=== PATIENT | male | born 1960 | race Caucasian/White ===

== ENCOUNTER 2020-08-31 16:50 | Inpatient (IN) | payer BC, OTHER ==
[2020-08-31] VITALS (8 sets, daily range): BP systolic 144–199; BP diastolic 67–97
[~2020-08-31] VITALS: Ht 180.3 cm; Wt 140.0 kg
[2020-08-31] MEDS ORDERED: ROPI5TAB4 PO (17:11)
[2020-08-31] MEDS ORDERED: PRED20TA PO (17:12)
[2020-08-31] MEDS ORDERED: CAPS42.514 TP (17:21)
[2020-08-31] MEDS ORDERED: OMEP20TA8 PO (17:21)
[2020-08-31] MEDS ORDERED: CRESTOR40 MG PO (17:21)
[2020-08-31] MEDS ORDERED: INDO50CA15 PO (17:21)
[2020-08-31] MEDS ORDERED: FURO-69 PO (17:21)
[2020-08-31] MEDS ORDERED: ALBUTEROL 90 MCG INH (17:21)
[2020-08-31] MEDS ORDERED: LOSA100T14 PO (17:21)
[2020-08-31] MEDS ORDERED: CARB15DR3 EACHEYE (17:21)
[2020-08-31] MEDS ORDERED: MONT10TA49 PO (17:21)
[2020-08-31] MEDS ORDERED: GABA600T7 PO (17:21)
[2020-08-31] MEDS ORDERED: METH-38 PO (17:21)
[2020-08-31] MEDS ORDERED: METF850T8 PO (17:21)
[2020-08-31] MEDS ORDERED: [UNRECOGNIZED DRUG - OTHER] PO (17:22)
[2020-08-31] MEDS ORDERED: DOCUSATE SODIUM 100 MG CAPSULE. PO PRN (18:15)
[2020-08-31] MEDS ORDERED: DEXTROSE 50% 25 GM / 50ML DISP.SYRIN. IV PRN (18:15)
[2020-08-31] MEDS ORDERED: ONDANSETRON PF 4 MG/2 ML VIAL. IVP PRN (18:15)
[2020-08-31] MEDS ORDERED: SENNOSIDES 8.6 MG TABLET PO PRN (18:15)
--- NOTE | 2020-08-31 18:18 | PDOC1 ---
History and Physical Date of Service: DOS: DATE: 08/31/20 TIME: 18:18 Chief Complaint: Chief Complain: COVID pneumonia History of Present Illness: HPI: History obtained from patient and transferring physician Dr. Ramos from the [place] Patient is a 60-year-old male with past medical history of insulin dependent diabetes mellitus, morbid obesity, MARGARITO who was transferred due to acute respiratory failure due to COVID-19 infection. Patient was tested positive for Covid on 08/25/2020 patient was treated with IV remdesivir and Decadron he did finish 5 days of IV antibiotics and has still continued to be fever with a T-max of 101 F. He was tested for procalcitonin and it was been negative x2. Patient was initially placed on nasal cannula at and transition to Vapotherm and he needed to go up on his requirements to 40 L and he has been on BiPAP now 100% FiO2 for the past 2 days. Patient's D-dimer was also elevated and a chest CTA was ordered which was negative, this was done on Sunday. The reason for the transfer is to have a pulmonology specialist to oversee their care. [place] physician has attempted to transfer to [facility] but the beds are full at this time. Currently the patient denies any respiratory distress he is currently saturating 100% on FiO2 of 100% BiPAP in the ICU. Currently denies fevers, chest pain, abdominal pain, diarrhea, dysuria, or hemoptysis. Past Medical/Surgical History: PMH/PSH: DM insulin dependent, CAD, HTN MARGARITO- compliant with CPAP Morbid Obesity Hx of LBBB Allergies: Allergies: Coded Allergies: flunisolide (Verified Adverse Reaction, Mild, insufficient response, 08/31/20) lisinopril (Verified Adverse Reaction, Mild, cough, 08/31/20) Family History: Family History: Reviewed with no relevant findings Social History: Social History: Denies alcohol, tobacco, drug abuse Current Medications: Current Medications Active Scripts Active Reported [cholecalcif] 25 Mcg PO DAILY Capsaicin 42.5 Gm Cream..g. 1 Chris TP QID [albuterol 90MCG] 2 Puff INH QID Robaxin-750 (Methocarbamol) 750 Mg Tablet 1 Tab PO BID 30 Days Indomethacin 50 Mg Capsule 1 Cap PO BID 10 Days with food Omeprazole 20 Mg Tablet.dr 20 Mg PO DAILY Gabapentin 600 Mg Tablet 600 Mg PO BID Crestor (Rosuvastatin Calcium) 40 Mg Tablet 20 Mg PO HS Singulair Tablet (Montelukast Sodium) 10 Mg Tablet 10 Mg PO HS Metformin Hcl 850 Mg Tablet 850 Mg PO BIDWMEALS Losartan Potassium 100 Mg Tablet 100 Mg PO DAILY Lasix (Furosemide) 20 Mg Tablet 20 Mg PO DAILY Refresh Optive Eye Drops (Carboxymethylcellulos/Glycerin) 15 Ml Drops 1 Drop EACHEYE BID PRN Prednisone 20 Mg Tablet 10 Mg PO DAILY Ropinirole Hcl 5 Mg Tablet 5 Mg PO QHS ROS: Review of Systems Review of System REVIEW OF SYSTEMS: GENERAL: Denies weakness SKIN: No bruising, hair changes or rashes. EYES: No blurred, double or loss of vision. NOSE AND THROAT: No history of nosebleeds, hoarseness or sore throat. HEART: No history of palpitations, chest pain or shortness of breath on exertion. LUNGS: Denies cough, hemoptysis, wheezing or shortness of breath. GASTROINTESTINAL: Denies changes in appetite, nausea, vomiting, diarrhea or constipation. GENITOURINARY: No history of frequency, urgency, hesitancy or nocturia. NEUROLOGIC: Denies history of numbness, tingling, or tremor. PSYCHIATRIC: No history of panic, anxiety or depression. ENDOCRINE: No history of heat or cold intolerance, polyuria or polydipsia. EXTREMITIES: Denies joint pain, pain on walking or stiffness. Physical Exam: Vital Signs: Vital Signs Date Time Temp Pulse Resp B/P (MAP) Pulse Ox O2 Delivery O2 Flow Rate FiO2 08/31/20 17:15 94 26 144/74 (97) 96 BiPAP/CPAP 08/31/20 17:00 100.1 100.1 Physcial Exam: GEN: No apparent distress. Alert and oriented HEENT: Normal cephalic, atraumatic, external auditory canals are patent EYES: Extraocular muscles are intact, pupil are equally round and reactive to light and accommodation MUSCULOSKELETAL: Well developed , well nourished, good range of motion ENDOCRINE: No thyromegaly was palpated LYMPHATICS: No cervical chain or axillary nodes were noted HEMATOPOIETIC: No bruising NECK: Supple, no JVD, no thyromegaly was noted LUNGS: Clear to auscultation in all lung snyder without rhonchi or wheezing HEART: RRR, S!, S2 present. Peripheral pulses intact, no obvious murmurs noted ABDOMEN: Soft, nontender. Positive bowel sounds, no organomegaly, normal bowel sounds EXTREMITIES: Without clubbing, cyanosis, or edema. Pedal pulses intact. Negative Homans sign NEUROLOGIC: Normal speech and tone. A&O x 3, moves all extremities, no obvious focal deficits PSYCHIATRIC: Normal affect, normal mood. Stable SKIN: No ulcerations or rashes, good skin turgor, no jaundice VASCULAR: Good capillary refill, neurovascular bundle appears to be intact Labs: Labs: Labs reviewed in paper chart Images: Images Negative CT of the chest done Sunday at the [place] Pending chest x-ray Assessment/Plan Assessment/Plan Acute hypoxic respiratory failure due to COVID-19 infection requiring BiPAP support Diabetes mellitus Morbid obesity MARGARITO on CPAP Admit to ICU for close respiratory monitoring Pulmonology consult Continue IV dexamethasone 6 mg daily Lovenox twice daily for DVT prophylaxis Protonix while on steroids GI prophylaxis ADA diet Full code Discussed with RN and SW Disposition inpatient management as above Surrogate decision maker is the A total of 65 minutes of critical care time was spent in reviewing chart, labs, and images. Discussed with RN and SW. Justifications for Admission Other Justification Acute respiratory failure due to COVID RIGOBERTO ZALDIVAR MD Aug 31, 2020 18:18
--- NOTE | 2020-08-31 18:36 | NUR ---
Patient arrived to room by EMS on BIPAP. Patient oxygen saturation is upper 90's on 100% BIPAP and breathing well. Patient says he is feeling good and pain free. I had a lengthy conversation with the patient regarding the plan of care and his status. He had concerns at [facility] that his needs were not being met so he asked to be transferred. Patients questions and concerns were discussed and he is feeling better about his situation. I spoke to the and she had many questions. We discussed in length the plan of care and his status and she also felt like her questions were answered and did not have any further questions at this time.
[2020-08-31] MEDS ORDERED: POLYVINYL ALCOHOL 1.4% OPHTH SOLUTION 15ML BOTTLE. OU PRN (19:45)
[2020-08-31] MEDS: ENOXAPARIN 40 MG/0.4 ML SYRINGE. SQ SCH (20:05)
[2020-08-31] MEDS: GABAPENTIN 300 MG CAPSULE. PO SCH (20:05)
[2020-08-31] MEDS: ASCORBIC ACID 1,000 MG TABLET PO SCH (20:06)
[2020-08-31] MEDS: ATORVASTATIN CALCIUM 40 MG TABLET. PO SCH (20:07)
[2020-08-31] MEDS ORDERED: rOPINIRole 1 MG TABLET. PO SCH (21:00)
[2020-08-31] MEDS ORDERED: ENOXAPARIN 40 MG/0.4 ML SYRINGE. SQ SCH (21:00)
[2020-08-31] MEDS ORDERED: MONTELUKAST SODIUM 10 MG TABLET. PO SCH (21:00)
[2020-08-31] MEDS: METHOCARBAMOL 750 MG TABLET PO SCH (21:01)
[2020-08-31] MEDS: INDOMETHACIN 25 MG CAPSULE. PO SCH (21:02)
[2020-08-31] MEDS: CAPSAICIN 0.025% TOPICAL CREAM 60GM TUBE. TP SCH (21:02)
[2020-08-31] MEDS: LABETALOL 20 MG/4 ML DISP.SYRIN. IVP PRN (21:55)
[2020-08-31] MEDS: THIAMINE INJ 100 MG in IV DEXTROSE 5% 50 ML IV SCH (21:57)
[2020-09-01] VITALS (28 sets, daily range): BP systolic 80–196; BP diastolic 40–130
--- NOTE | 2020-09-01 04:21 | RAD ---
XR CHEST 1V 09/01/2020 4:11 AM INDICATION: Covid positive COMPARISON: None available TECHNIQUE: Portable frontal view of the chest is provided. FINDINGS: The cardiomediastinal silhouette is within normal limits. Small left pleural effusion with adjacent c ompressive atelectasis versus infiltrate. Mild interstitial prominence may represent interstitial edema versus interstitial pneumonitis. No pne umothorax. No suspicious osseous abnormality. IMPRESSION: Small left pleural effusion with adjacent compressive atelectasis versus infiltrate. Mild interstitial prominence as may be seen with interstitial pneumonitis versus interstitial edema. Electronically signed by: Rossi Hermosillo MD (09/01/2020 4:18 AM) KARLY
[2020-09-01] MEDS: THIAMINE INJ 100 MG in IV DEXTROSE 5% 50 ML IV SCH ×3 (05:39→23:21)
[2020-09-01] MEDS ORDERED: BENZONATATE 100 MG CAPSULE. PO PRN (06:30)
[2020-09-01] MEDS ORDERED: LORazepam 0.5 MG TABLET PO PRN (06:30)
[2020-09-01] MEDS: MORPHINE SULFATE 2 MG/ML VIAL. IV PRN ×2 (06:34→10:05)
[2020-09-01 07:28] LABS: BASO # 0.1 x10^3/uL (0.0-0.2); BASO % 1 % (0-3); EOS # 0.1 x10^3/uL (0.0-0.7); EOS % 1 % (0-3); HEMATOCRIT 41.1 % (39.0-53.0); HEMOGLOBIN 13.2 g/dL (13.0-17.5); LYMPH # 0.7 x10^3/uL (1.0-4.8); LYMPH % 5 % (24-48); MEAN CORPUSCULAR HEMOGLOBIN 25 pg (25-35); MEAN CORPUSCULAR HGB CONC 32 g/dL (31-37); MEAN CORPUSCULAR VOLUME 77 fL (79-100); MONO # 0.2 x10^3/uL (0.0-1.1); MONO % 1 % (0-9); NEUT # 11.6 x10^3/uL (1.8-7.7); NEUT % 92 % (31-73); PLATELET COUNT 260 x10^3/uL (140-400); RED BLOOD COUNT 5.33 x10^6/uL (4.30-5.70); RED CELL DISTRIBUTION WIDTH 15.2 % (11.5-14.5); WHITE BLOOD COUNT 12.7 x10^3/uL (4.0-11.0)
[2020-09-01 07:47] LABS: MAGNESIUM 2.8 mg/dL (1.8-2.4); PHOSPHORUS 3.5 mg/dL (2.6-4.7)
[2020-09-01 07:48] LABS: ALBUMIN 2.3 g/dL (3.4-5.0); ALBUMIN/GLOBULIN RATIO 0.5 (1.0-1.7); CREATININE 1.2 mg/dL (0.7-1.3); GFR 62.2; POTASSIUM 4.3 mmol/L (3.5-5.1); TOTAL PROTEIN 6.7 g/dL (6.4-8.2)
[2020-09-01] MEDS: INDOMETHACIN 25 MG CAPSULE. PO SCH ×2 (08:00→17:00)
[2020-09-01] MEDS: metFORMIN 850 MG TABLET PO SCH ×2 (08:00→17:00)
[2020-09-01] MEDS: INSULIN LISPRO 300 UNITS/3 ML VIAL. SQ SCH ×5 (08:00→23:59)
[2020-09-01] MEDS: ENOXAPARIN 40 MG/0.4 ML SYRINGE. SQ SCH ×2 (08:17→21:25)
[2020-09-01] MEDS: PANTOPRAZOLE IV PUSH 40 MG VIAL. IVP SCH (08:17)
[2020-09-01] MEDS: LABETALOL 20 MG/4 ML DISP.SYRIN. IVP PRN (08:23)
[2020-09-01] MEDS: DEXAMETHASONE SOD PHOS 4 MG/ML VIAL IVP SCH (08:32)
[2020-09-01 08:41] LABS: BASE EXCESS ABG 5 mmol/L (-3-3); HCO3 ABG 28 mmol/L (21-28); PCO2 ABG 36 mmHg (35-46); PO2 ABG 59 mmHg (75-108); SAT O2 ABG 91 % (92-99)
[2020-09-01 08:50] LABS: CORRECTED PCO2 ABG 41 mmHg; CORRECTED PH ABG 7.46; CORRECTED PO2 ABG 72 mmHg
[2020-09-01 08:52] LABS: FIO2 ABG 100/BIPAP
[2020-09-01] MEDS ORDERED: LOSARTAN POTASSIUM 50 MG TABLET. PO SCH (09:00)
[2020-09-01] MEDS: ASCORBIC ACID 1,000 MG TABLET PO SCH ×3 (09:00→21:25)
[2020-09-01] MEDS ORDERED: FUROSEMIDE 20 MG TABLET PO SCH (09:00)
[2020-09-01] MEDS ORDERED: NON FORMULARY ITEM (Omeprazole 20 MG) PO SCH (09:00)
[2020-09-01] MEDS: CAPSAICIN 0.025% TOPICAL CREAM 60GM TUBE. TP SCH ×3 (09:00→17:00)
[2020-09-01] MEDS: CHOLECALCIFEROL (VITAMIN D3) 1,000 UNIT TABLET PO SCH (09:00)
[2020-09-01] MEDS: METHOCARBAMOL 750 MG TABLET PO SCH (09:00)
[2020-09-01] MEDS: INSULIN GLARGINE SYRINGE. SQ SCH (09:00)
[2020-09-01] MEDS: GABAPENTIN 300 MG CAPSULE. PO SCH ×2 (09:00→21:25)
--- NOTE | 2020-09-01 09:00 | PDOC ---
PROGRESS NOTES Date of Service: DATE: 09/01/20 TIME: 09:00 Chief Complaint Chief Complaint Images: Images Negative CT of the chest done Sunday at the [place] Pending chest x-ray Assessment/Plan Assessment/Plan Acute hypoxic respiratory failure due to COVID-19 infection requiring BiPAP support Diabetes mellitus Morbid obesity MARGARITO on CPAP, now intubated 09-01 Admit to ICU for close respiratory monitoring Pulmonology consult Continue IV dexamethasone 6 mg daily Lovenox twice daily for DVT prophylaxis Protonix while on steroids GI prophylaxis ADA diet Full code Discussed with RN and SW Disposition inpatient management as above Surrogate decision maker is the 35 minutes of critical care time Justifications for Admission Justifications for Admission Other Justification Acute respiratory failure due to COVID History of Present Illness History of Present Illness Chief Complaint: Chief Complain: COVID pneumonia History of Present Illness: HPI: History obtained from patient and transferring physician Dr. Ramos from the [place] Patient is a 60-year-old male with past medical history of insulin dependent diabetes mellitus, morbid obesity, MARGARITO who was transferred due to acute respiratory failure due to COVID-19 infection. Patient was tested positive for Covid on 08/25/2020 patient was treated with IV remdesivir and Decadron he did finish 5 days of IV antibiotics and has still continued to be fever with a T-max of 101 F. He was tested for procalcitonin and it was been negative x2. Patient was initially placed on nasal cannula at and transition to Vapotherm and he needed to go up on his requirements to 40 L and he has been on BiPAP now 100% FiO2 for the past 2 days. Patient's D-dimer was also elevated and a chest CTA was ordered which was negative, this was done on Sunday. The reason for the transfer is to have a pulmonology specialist to oversee their care. [place] physician has attempted to transfer to [facility] but the beds are full at this time. Currently the patient denies any respiratory distress he is currently saturating 100% on FiO2 of 100% BiPAP in the ICU. Currently denies fevers, chest pain, abdominal pain, diarrhea, dysuria, or hemoptysis. Past Medical/Surgical History: PMH/PSH: DM insulin dependent, CAD, HTN MARGARITO- compliant with CPAP Morbid Obesity Hx of LBBB Allergies: Allergies: Coded Allergies: flunisolide (Verified Adverse Reaction, Mild, insufficient response, 08/31/20) lisinopril (Verified Adverse Reaction, Mild, cough, 08/31/20) Family History: Family History: Reviewed with no relevant findings Social History: Social History: Denies alcohol, tobacco, drug abuse Current Medications: Current Medications Vitals Vitals Vital Signs Date Time Temp Pulse Resp B/P (MAP) Pulse Ox O2 Delivery O2 Flow Rate FiO2 09/01/20 08:23 94 198/78 09/01/20 08:08 82 09/01/20 06:34 BiPAP/CPAP 09/01/20 06:00 29 09/01/20 04:00 98.2 98.2 Physical Exam Physical Exam Physcial Exam: GEN: No apparent distress. sedated on vent HEENT: Normal cephalic, atraumatic, external auditory canals are patent EYES: Extraocular muscles are intact, pupil are equally round and reactive to light and accommodation MUSCULOSKELETAL: Well developed , well nourished, good range of motion ENDOCRINE: No thyromegaly was palpated LYMPHATICS: No cervical chain or axillary nodes were noted HEMATOPOIETIC: No bruising NECK: Supple, no JVD, no thyromegaly was noted LUNGS: Clear to auscultation in all lung snyder without rhonchi or wheezing HEART: RRR, S!, S2 present. Peripheral pulses intact, no obvious murmurs noted ABDOMEN: Soft, nontender. Positive bowel sounds, no organomegaly, normal bowel sounds EXTREMITIES: Without clubbing, cyanosis, or edema. Pedal pulses intact. Negative Homans sign NEUROLOGIC: no obvious focal deficits SKIN: No ulcerations or rashes, good skin turgor, no jaundice VASCULAR: Good capillary refill, neurovascular bundle appears to be intact General: Cooperative Extremities: No cyanosis Labs LABS EXAM: CHEST 1 VIEW History : Central line insertion. COMPARISON: 09/01/2020 TECHNIQUE: Single portable radiograph of the chest FINDINGS: The ET tube is identified in the trachea at the level of the clavicles. The feeding tube is identified in the stomach. Interval placement of right-sided internal jugular line with the tip projecting in the SVC. Mild prominent bilateral interstitial and airspace opacities that exam. No pneumothorax. IMPRESSION: 1. Interval placement of right-sided internal jugular line with the tip projecting in the SVC. No pneumothorax. 2. Mild prominent bilateral interstitial and airspace opacities likely edema or infiltrates. Electronically signed by: Jack Coughlin MD (09/01/2020 2:17 PM) [id number] DICTATED and SIGNED BY: JACK COUGHLIN MD DATE: 09/01/20 [id number] Laboratory Tests Test 09/01/20 01:38 09/01/20 07:09 09/01/20 07:29 09/01/20 08:00 Troponin I Quantitative 0.024 ng/mL (0.000-0.055) White Blood Count 12.7 x10^3/uL (4.0-11.0) Red Blood Count 5.33 x10^6/uL (4.30-5.70) Hemoglobin 13.2 g/dL (13.0-17.5) Hematocrit 41.1 % (39.0-53.0) Mean Corpuscular Volume 77 fL (79-100) Mean Corpuscular Hemoglobin 25 pg (25-35) Mean Corpuscular Hemoglobin Concent 32 g/dL (31-37) Red Cell Distribution Width 15.2 % (11.5-14.5) Platelet Count 260 x10^3/uL (140-400) Neutrophils (%) (Auto) 92 % (31-73) Lymphocytes (%) (Auto) 5 % (24-48) Monocytes (%) (Auto) 1 % (0-9) Eosinophils (%) (Auto) 1 % (0-3) Basophils (%) (Auto) 1 % (0-3) Neutrophils # (Auto) 11.6 x10^3/uL (1.8-7.7) Lymphocytes # (Auto) 0.7 x10^3/uL (1.0-4.8) Monocytes # (Auto) 0.2 x10^3/uL (0.0-1.1) Eosinophils # (Auto) 0.1 x10^3/uL (0.0-0.7) Basophils # (Auto) 0.1 x10^3/uL (0.0-0.2) Sodium Level 141 mmol/L (136-145) Potassium Level 4.3 mmol/L (3.5-5.1) Chloride Level 102 mmol/L (98-107) Carbon Dioxide Level 34 mmol/L (21-32) Anion Gap 5 (6-14) Blood Urea Nitrogen 23 mg/dL (8-26) Creatinine 1.2 mg/dL (0.7-1.3) Estimated GFR (Cockcroft-Gault) 62.2 BUN/Creatinine Ratio 19 (6-20) Glucose Level 193 mg/dL (70-99) Calcium Level 9.0 mg/dL (8.5-10.1) Phosphorus Level 3.5 mg/dL (2.6-4.7) Magnesium Level 2.8 mg/dL (1.8-2.4) Total Bilirubin 1.0 mg/dL (0.2-1.0) Aspartate Amino Transf (AST/SGOT) 53 U/L (15-37) Alanine Aminotransferase (ALT/SGPT) 39 U/L (16-63) Alkaline Phosphatase 273 U/L (46-116) Total Protein 6.7 g/dL (6.4-8.2) Albumin 2.3 g/dL (3.4-5.0) Albumin/Globulin Ratio 0.5 (1.0-1.7) Glucose (Fingerstick) 174 mg/dL (70-99) O2 Saturation 91 % (92-99) Arterial Blood pH 7.50 (7.35-7.45) Arterial Blood pH (Temp corrected) 7.46 Arterial Blood pCO2 at Patient Temp 36 mmHg (35-46) Arterial Blood pCO2 (Temp correct) 41 mmHg Arterial Blood pO2 at Patient Temp 59 mmHg (75-108) Arterial Blood pO2 (Temp corrected) 72 mmHg Arterial Blood HCO3 28 mmol/L (21-28) Arterial Blood Base Excess 5 mmol/L (-3-3) FiO2 100/bipap Comment Review of Relevant I have reviewed the following items lexa (where applicable) has been applied. Labs Laboratory Tests Test 09/01/20 01:38 09/01/20 07:09 09/01/20 07:29 09/01/20 08:00 Troponin I Quantitative 0.024 ng/mL (0.000-0.055) White Blood Count 12.7 x10^3/uL (4.0-11.0) Red Blood Count 5.33 x10^6/uL (4.30-5.70) Hemoglobin 13.2 g/dL (13.0-17.5) Hematocrit 41.1 % (39.0-53.0) Mean Corpuscular Volume 77 fL (79-100) Mean Corpuscular Hemoglobin 25 pg (25-35) Mean Corpuscular Hemoglobin Concent 32 g/dL (31-37) Red Cell Distribution Width 15.2 % (11.5-14.5) Platelet Count 260 x10^3/uL (140-400) Neutrophils (%) (Auto) 92 % (31-73) Lymphocytes (%) (Auto) 5 % (24-48) Monocytes (%) (Auto) 1 % (0-9) Eosinophils (%) (Auto) 1 % (0-3) Basophils (%) (Auto) 1 % (0-3) Neutrophils # (Auto) 11.6 x10^3/uL (1.8-7.7) Lymphocytes # (Auto) 0.7 x10^3/uL (1.0-4.8) Monocytes # (Auto) 0.2 x10^3/uL (0.0-1.1) Eosinophils # (Auto) 0.1 x10^3/uL (0.0-0.7) Basophils # (Auto) 0.1 x10^3/uL (0.0-0.2) Sodium Level 141 mmol/L (136-145) Potassium Level 4.3 mmol/L (3.5-5.1) Chloride Level 102 mmol/L (98-107) Carbon Dioxide Level 34 mmol/L (21-32) Anion Gap 5 (6-14) Blood Urea Nitrogen 23 mg/dL (8-26) Creatinine 1.2 mg/dL (0.7-1.3) Estimated GFR (Cockcroft-Gault) 62.2 BUN/Creatinine Ratio 19 (6-20) Glucose Level 193 mg/dL (70-99) Calcium Level 9.0 mg/dL (8.5-10.1) Phosphorus Level 3.5 mg/dL (2.6-4.7) Magnesium Level 2.8 mg/dL (1.8-2.4) Total Bilirubin 1.0 mg/dL (0.2-1.0) Aspartate Amino Transf (AST/SGOT) 53 U/L (15-37) Alanine Aminotransferase (ALT/SGPT) 39 U/L (16-63) Alkaline Phosphatase 273 U/L (46-116) Total Protein 6.7 g/dL (6.4-8.2) Albumin 2.3 g/dL (3.4-5.0) Albumin/Globulin Ratio 0.5 (1.0-1.7) Glucose (Fingerstick) 174 mg/dL (70-99) O2 Saturation 91 % (92-99) Arterial Blood pH 7.50 (7.35-7.45) Arterial Blood pH (Temp corrected) 7.46 Arterial Blood pCO2 at Patient Temp 36 mmHg (35-46) Arterial Blood pCO2 (Temp correct) 41 mmHg Arterial Blood pO2 at Patient Temp 59 mmHg (75-108) Arterial Blood pO2 (Temp corrected) 72 mmHg Arterial Blood HCO3 28 mmol/L (21-28) Arterial Blood Base Excess 5 mmol/L (-3-3) FiO2 100/bipap Laboratory Tests Test 09/01/20 01:38 09/01/20 07:09 09/01/20 07:29 09/01/20 08:00 Troponin I Quantitative 0.024 ng/mL (0.000-0.055) White Blood Count 12.7 x10^3/uL (4.0-11.0) Red Blood Count 5.33 x10^6/uL (4.30-5.70) Hemoglobin 13.2 g/dL (13.0-17.5) Hematocrit 41.1 % (39.0-53.0) Mean Corpuscular Volume 77 fL (79-100) Mean Corpuscular Hemoglobin 25 pg (25-35) Mean Corpuscular Hemoglobin Concent 32 g/dL (31-37) Red Cell Distribution Width 15.2 % (11.5-14.5) Platelet Count 260 x10^3/uL (140-400) Neutrophils (%) (Auto) 92 % (31-73) Lymphocytes (%) (Auto) 5 % (24-48) Monocytes (%) (Auto) 1 % (0-9) Eosinophils (%) (Auto) 1 % (0-3) Basophils (%) (Auto) 1 % (0-3) Neutrophils # (Auto) 11.6 x10^3/uL (1.8-7.7) Lymphocytes # (Auto) 0.7 x10^3/uL (1.0-4.8) Monocytes # (Auto) 0.2 x10^3/uL (0.0-1.1) Eosinophils # (Auto) 0.1 x10^3/uL (0.0-0.7) Basophils # (Auto) 0.1 x10^3/uL (0.0-0.2) Sodium Level 141 mmol/L (136-145) Potassium Level 4.3 mmol/L (3.5-5.1) Chloride Level 102 mmol/L (98-107) Carbon Dioxide Level 34 mmol/L (21-32) Anion Gap 5 (6-14) Blood Urea Nitrogen 23 mg/dL (8-26) Creatinine 1.2 mg/dL (0.7-1.3) Estimated GFR (Cockcroft-Gault) 62.2 BUN/Creatinine Ratio 19 (6-20) Glucose Level 193 mg/dL (70-99) Calcium Level 9.0 mg/dL (8.5-10.1) Phosphorus Level 3.5 mg/dL (2.6-4.7) Magnesium Level 2.8 mg/dL (1.8-2.4) Total Bilirubin 1.0 mg/dL (0.2-1.0) Aspartate Amino Transf (AST/SGOT) 53 U/L (15-37) Alanine Aminotransferase (ALT/SGPT) 39 U/L (16-63) Alkaline Phosphatase 273 U/L (46-116) Total Protein 6.7 g/dL (6.4-8.2) Albumin 2.3 g/dL (3.4-5.0) Albumin/Globulin Ratio 0.5 (1.0-1.7) Glucose (Fingerstick) 174 mg/dL (70-99) O2 Saturation 91 % (92-99) Arterial Blood pH 7.50 (7.35-7.45) Arterial Blood pH (Temp corrected) 7.46 Arterial Blood pCO2 at Patient Temp 36 mmHg (35-46) Arterial Blood pCO2 (Temp correct) 41 mmHg Arterial Blood pO2 at Patient Temp 59 mmHg (75-108) Arterial Blood pO2 (Temp corrected) 72 mmHg Arterial Blood HCO3 28 mmol/L (21-28) Arterial Blood Base Excess 5 mmol/L (-3-3) FiO2 100/bipap Medications Current Medications Sennosides (Senna) 17.2 mg PRN BID PRN PO CONSTIPATION; Start 08/31/20 at 18:15 Docusate Sodium (Colace) 100 mg PRN DAILY PRN PO HARD STOOLS; Start 08/31/20 at 18:15 Ondansetron HCl (Zofran) 4 mg PRN Q6HRS PRN IVP NAUSEA/VOMITING; Start 08/31/20 at 18:15 Insulin Human Lispro (HumaLOG) 0-9 UNITS TIDWMEALS SQ ; Start 09/01/20 at 08:00 Dextrose (Dextrose 50%-Water Syringe) 12.5 gm PRN Q15MIN PRN IV SEE COMMENTS; Start 08/31/20 at 18:15 Enoxaparin Sodium (Lovenox 40mg Syringe) 40 mg Q24H SQ ; Start 08/31/20 at 21:00; Stop 08/31/20 at 18:36; Status DC Pantoprazole Sodium (PROTONIX VIAL for IV PUSH) 40 mg DAILYAC IVP Last administered on 09/01/20at 08:17; Start 09/01/20 at 07:30 Enoxaparin Sodium (Lovenox 40mg Syringe) 40 mg BID SQ Last administered on 09/01/20at 08:17; Start 08/31/20 at 21:00 Dexamethasone Sodium Phosphate (Decadron) 6 mg DAILY IVP Last administered on 09/01/20at 08:32; Start 09/01/20 at 09:00 Ascorbic Acid (Vitamin C) 3,000 mg TID PO Last administered on 08/31/20at 20:06; Start 08/31/20 at 21:00 Thiamine HCl 100 mg/Dextrose 51 ml @ 102 mls/hr Q8HRS IV Last administered on 09/01/20at 05:39; Start 08/31/20 at 22:00 Insulin Glargine (Lantus Syringe) 40 unit DAILY SQ ; Start 09/01/20 at 09:00 Furosemide (Lasix) 20 mg DAILY PO ; Start 09/01/20 at 09:00 Metformin HCl (Glucophage) 850 mg BIDWMEALS PO ; Start 09/01/20 at 08:00 Methocarbamol (Robaxin) 750 mg BID PO Last administered on 08/31/20at 21:01; Start 08/31/20 at 21:00 Montelukast Sodium (Singulair) 10 mg HS PO Last administered on 08/31/20at 20:05; Start 08/31/20 at 21:00 Capsaicin (Zostrix) 1 chris QID TP Last administered on 08/31/20at 21:02; Start 08/31/20 at 21:00 Glycerin/ Hypromellose/ Polyethylene (Artificial Tears) 1 drop PRN BID PRN OU DRY EYE; Start 08/31/20 at 19:45 Gabapentin (Neurontin) 600 mg BID PO Last administered on 08/31/20at 20:05; Start 08/31/20 at 21:00 Indomethacin (Indocin) 50 mg BIDWMEALS PO Last administered on 08/31/20at 21:0 2; Start 08/31/20 at 21:00 Losartan Potassium (Cozaar) 100 mg DAILY PO ; Start 09/01/20 at 09:00 Non-Formulary Medication (Omeprazole ) 20 mg DAILY PO ; Start 09/01/20 at 09:00; Status UNV Ropinirole HCl (Requip) 5 mg QHS PO Last administered on 08/31/20at 20:06; Start 08/31/20 at 21:00 Atorvastatin Calcium (Lipitor) 80 mg QHS PO Last administered on 08/31/20at 20:07; Start 08/31/20 at 21:00 Vitamin D (Vitamin D3) 1,000 unit DAILY PO ; Start 09/01/20 at 09:00 Labetalol HCl (Normodyne Iv Push) 10 mg TID PRN PRN IVP HYPERTENSION Last administered on 09/01/20at 08:23; Start 08/31/20 at 21:45 Lorazepam (Ativan) 0.25 mg PRN Q6HRS PRN PO ANXIETY / AGITATION; Start 09/01/20 at 06:30 Benzonatate (Tessalon Perle) 100 mg PRN Q8HRS PRN PO COUGH Last administered on 09/01/20at 06:34; Start 09/01/20 at 06:30 Morphine Sulfate (Morphine Sulfate) 2 mg PRN Q2HR PRN IV PAIN Last administered on 09/01/20at 06:34; Start 09/01/20 at 06:30 Active Scripts Active Reported [cholecalcif] 25 Mcg PO DAILY Capsaicin 42.5 Gm Cream..g. 1 Chris TP QID [albuterol 90MCG] 2 Puff INH QID Robaxin-750 (Methocarbamol) 750 Mg Tablet 1 Tab PO BID 30 Days Indomethacin 50 Mg Capsule 1 Cap PO BID 10 Days with food Omeprazole 20 Mg Tablet.dr 20 Mg PO DAILY Gabapentin 600 Mg Tablet 600 Mg PO BID Crestor (Rosuvastatin Calcium) 40 Mg Tablet 20 Mg PO HS Singulair Tablet (Montelukast Sodium) 10 Mg Tablet 10 Mg PO HS Metformin Hcl 850 Mg Tablet 850 Mg PO BIDWMEALS Losartan Potassium 100 Mg Tablet 100 Mg PO DAILY Lasix (Furosemide) 20 Mg Tablet 20 Mg PO DAILY Refresh Optive Eye Drops (Carboxymethylcellulos/Glycerin) 15 Ml Drops 1 Drop EACHEYE BID PRN Prednisone 20 Mg Tablet 10 Mg PO DAILY Ropinirole Hcl 5 Mg Tablet 5 Mg PO QHS Vitals/I & O Vital Sign - Last 24 Hours 08/31/20 08/31/20 08/31/20 08/31/20 17:00 17:00 17:00 17:15 Temp 100.1 100.1 Pulse 92 94 Resp 26 26 B/P (MAP) 169/76 (107) 144/74 (97) Pulse Ox 96 96 96 O2 Delivery BiPAP/CPAP BiPAP/CPAP Bi-pap BiPAP/CPAP 08/31/20 08/31/20 08/31/20 08/31/20 18:00 19:00 20:00 20:00 Pulse 90 88 80 Resp 32 28 28 B/P (MAP) 157/67 (97) 163/97 (119) 186/85 (118) Pulse Ox 92 90 93 O2 Delivery BiPAP/CPAP BiPAP/CPAP Bi-pap BiPAP/CPAP 08/31/20 08/31/20 08/31/20 08/31/20 20:15 21:00 21:55 22:00 Temp 99.2 99.2 Pulse 86 86 90 Resp 24 24 B/P (MAP) 199/79 (119) 199/79 153/78 (103) Pulse Ox 93 96 90 O2 Delivery BiPAP/CPAP BiPAP/CPAP BiPAP/CPAP 08/31/20 08/31/20 09/01/20 09/01/20 23:00 23:46 00:00 00:00 Temp 98.1 98.1 Pulse 98 87 Resp 27 B/P (MAP) 176/81 (112) 123/62 (82) Pulse Ox 90 91 90 O2 Delivery BiPAP/CPAP BiPAP/CPAP Bi-pap BiPAP/CPAP 09/01/20 09/01/20 09/01/20 09/01/20 01:00 02:00 03:00 03:11 Pulse 74 72 75 Resp 30 B/P (MAP) 153/73 (99) 153/70 (97) 131/75 (93) Pulse Ox 89 90 93 89 O2 Delivery BiPAP/CPAP BiPAP/CPAP BiPAP/CPAP BiPAP/CPAP 09/01/20 09/01/20 09/01/20 09/01/20 04:00 04:00 05:00 06:00 Temp 98.2 98.2 Pulse 87 98 86 Resp B/P (MAP) 148/78 (101) 114/68 (83) 186/76 (112) Pulse Ox 88 86 82 O2 Delivery Bi-pap BiPAP/CPAP BiPAP/CPAP BiPAP/CPAP 09/01/20 09/01/20 09/01/20 06:34 08:08 08:23 Pulse 94 B/P (MAP) 198/78 Pulse Ox 82 O2 Delivery BiPAP/CPAP Intake and Output 08/31/20 08/31/20 09/01/20 15:00 23:00 07:00 Intake Total 960 ml Output Total 500 ml 475 ml Balance -500 ml 485 ml Justicifation of Admission Dx: Justifications for Admission: Justification of Admission Dx: Yes Comminuty Aquired Pneumonia: Hypoxemia Chronic Renal Failure: Encephalopathy Sepsis: Hypoxemia LUIS TRIPLETT MD Sep 01, 2020 09:00
[2020-09-01 09:48] LABS: % BANDS 5 % (0-9); % LYMPHS 4 % (24-48); % MONOS 3 % (0-10); % SEGS 88 % (35-66)
[2020-09-01 09:52] LABS: ANISOCYTOSIS SLIGHT; PLT ESTIMATE ADEQUATE (ADEQUATE)
[2020-09-01] MEDS ORDERED: ACETAMINOPHEN 650 MG SUPP.RECT. PR PRN (10:15)
[2020-09-01] MEDS ORDERED: METOPROLOL IV PUSH 5 MG/5 ML VIAL. IVP ONE (10:15)
[2020-09-01] MEDS ORDERED: METOPROLOL IV PUSH 5 MG/5 ML VIAL. IVP PRN (10:15)
--- NOTE | 2020-09-01 10:20 | PDOC ---
PULMONARY PROGRESS NOTES DATE: 09/01/20 TIME: 10:19 Vitals Vital Signs Date Time Temp Pulse Resp B/P (MAP) Pulse Ox O2 Delivery O2 Flow Rate FiO2 09/01/20 10:05 82 09/01/20 08:23 94 198/78 09/01/20 07:37 AVAPS 09/01/20 06:00 29 09/01/20 04:00 98.2 98.2 Labs Laboratory Tests Test 09/01/20 01:38 09/01/20 07:09 09/01/20 07:29 09/01/20 08:00 Troponin I Quantitative 0.024 ng/mL (0.000-0.055) White Blood Count 12.7 x10^3/uL (4.0-11.0) Red Blood Count 5.33 x10^6/uL (4.30-5.70) Hemoglobin 13.2 g/dL (13.0-17.5) Hematocrit 41.1 % (39.0-53.0) Mean Corpuscular Volume 77 fL (79-100) Mean Corpuscular Hemoglobin 25 pg (25-35) Mean Corpuscular Hemoglobin Concent 32 g/dL (31-37) Red Cell Distribution Width 15.2 % (11.5-14.5) Platelet Count 260 x10^3/uL (140-400) Neutrophils (%) (Auto) 92 % (31-73) Lymphocytes (%) (Auto) 5 % (24-48) Monocytes (%) (Auto) 1 % (0-9) Eosinophils (%) (Auto) 1 % (0-3) Basophils (%) (Auto) 1 % (0-3) Neutrophils # (Auto) 11.6 x10^3/uL (1.8-7.7) Lymphocytes # (Auto) 0.7 x10^3/uL (1.0-4.8) Monocytes # (Auto) 0.2 x10^3/uL (0.0-1.1) Eosinophils # (Auto) 0.1 x10^3/uL (0.0-0.7) Basophils # (Auto) 0.1 x10^3/uL (0.0-0.2) Segmented Neutrophils % 88 % (35-66) Band Neutrophils % 5 % (0-9) Lymphocytes % 4 % (24-48) Monocytes % 3 % (0-10) Platelet Estimate Adequate (ADEQUATE) Anisocytosis Slight Sodium Level 141 mmol/L (136-145) Potassium Level 4.3 mmol/L (3.5-5.1) Chloride Level 102 mmol/L (98-107) Carbon Dioxide Level 34 mmol/L (21-32) Anion Gap 5 (6-14) Blood Urea Nitrogen 23 mg/dL (8-26) Creatinine 1.2 mg/dL (0.7-1.3) Estimated GFR (Cockcroft-Gault) 62.2 BUN/Creatinine Ratio 19 (6-20) Glucose Level 193 mg/dL (70-99) Calcium Level 9.0 mg/dL (8.5-10.1) Phosphorus Level 3.5 mg/dL (2.6-4.7) Magnesium Level 2.8 mg/dL (1.8-2.4) Total Bilirubin 1.0 mg/dL (0.2-1.0) Aspartate Amino Transf (AST/SGOT) 53 U/L (15-37) Alanine Aminotransferase (ALT/SGPT) 39 U/L (16-63) Alkaline Phosphatase 273 U/L (46-116) Total Protein 6.7 g/dL (6.4-8.2) Albumin 2.3 g/dL (3.4-5.0) Albumin/Globulin Ratio 0.5 (1.0-1.7) Glucose (Fingerstick) 174 mg/dL (70-99) O2 Saturation 91 % (92-99) Arterial Blood pH 7.50 (7.35-7.45) Arterial Blood pH (Temp corrected) 7.46 Arterial Blood pCO2 at Patient Temp 36 mmHg (35-46) Arterial Blood pCO2 (Temp correct) 41 mmHg Arterial Blood pO2 at Patient Temp 59 mmHg (75-108) Arterial Blood pO2 (Temp corrected) 72 mmHg Arterial Blood HCO3 28 mmol/L (21-28) Arterial Blood Base Excess 5 mmol/L (-3-3) FiO2 100/bipap Laboratory Tests Test 09/01/20 01:38 09/01/20 07:09 09/01/20 07:29 09/01/20 08:00 Troponin I Quantitative 0.024 ng/mL (0.000-0.055) White Blood Count 12.7 x10^3/uL (4.0-11.0) Red Blood Count 5.33 x10^6/uL (4.30-5.70) Hemoglobin 13.2 g/dL (13.0-17.5) Hematocrit 41.1 % (39.0-53.0) Mean Corpuscular Volume 77 fL (79-100) Mean Corpuscular Hemoglobin 25 pg (25-35) Mean Corpuscular Hemoglobin Concent 32 g/dL (31-37) Red Cell Distribution Width 15.2 % (11.5-14.5) Platelet Count 260 x10^3/uL (140-400) Neutrophils (%) (Auto) 92 % (31-73) Lymphocytes (%) (Auto) 5 % (24-48) Monocytes (%) (Auto) 1 % (0-9) Eosinophils (%) (Auto) 1 % (0-3) Basophils (%) (Auto) 1 % (0-3) Neutrophils # (Auto) 11.6 x10^3/uL (1.8-7.7) Lymphocytes # (Auto) 0.7 x10^3/uL (1.0-4.8) Monocytes # (Auto) 0.2 x10^3/uL (0.0-1.1) Eosinophils # (Auto) 0.1 x10^3/uL (0.0-0.7) Basophils # (Auto) 0.1 x10^3/uL (0.0-0.2) Segmented Neutrophils % 88 % (35-66) Band Neutrophils % 5 % (0-9) Lymphocytes % 4 % (24-48) Monocytes % 3 % (0-10) Platelet Estimate Adequate (ADEQUATE) Anisocytosis Slight Sodium Level 141 mmol/L (136-145) Potassium Level 4.3 mmol/L (3.5-5.1) Chloride Level 102 mmol/L (98-107) Carbon Dioxide Level 34 mmol/L (21-32) Anion Gap 5 (6-14) Blood Urea Nitrogen 23 mg/dL (8-26) Creatinine 1.2 mg/dL (0.7-1.3) Estimated GFR (Cockcroft-Gault) 62.2 BUN/Creatinine Ratio 19 (6-20) Glucose Level 193 mg/dL (70-99) Calcium Level 9.0 mg/dL (8.5-10.1) Phosphorus Level 3.5 mg/dL (2.6-4.7) Magnesium Level 2.8 mg/dL (1.8-2.4) Total Bilirubin 1.0 mg/dL (0.2-1.0) Aspartate Amino Transf (AST/SGOT) 53 U/L (15-37) Alanine Aminotransferase (ALT/SGPT) 39 U/L (16-63) Alkaline Phosphatase 273 U/L (46-116) Total Protein 6.7 g/dL (6.4-8.2) Albumin 2.3 g/dL (3.4-5.0) Albumin/Globulin Ratio 0.5 (1.0-1.7) Glucose (Fingerstick) 174 mg/dL (70-99) O2 Saturation 91 % (92-99) Arterial Blood pH 7.50 (7.35-7.45) Arterial Blood pH (Temp corrected) 7.46 Arterial Blood pCO2 at Patient Temp 36 mmHg (35-46) Arterial Blood pCO2 (Temp correct) 41 mmHg Arterial Blood pO2 at Patient Temp 59 mmHg (75-108) Arterial Blood pO2 (Temp corrected) 72 mmHg Arterial Blood HCO3 28 mmol/L (21-28) Arterial Blood Base Excess 5 mmol/L (-3-3) FiO2 100/bipap Medications Active Scripts Medications Dose Route/Sig Max Daily Dose Days Date Category Dose Instructions [cholecalcif] 25 Mcg PO DAILY 08/31/20 Reported Capsaicin 42.5 Gm Cream..g. 1 Chris TP QID 08/31/20 Reported [albuterol 90MCG] 2 Puff INH QID 08/31/20 Reported Robaxin-750 (Methocarbamol) 750 Mg Tablet 1 Tab PO BID 30 08/31/20 Reported Indomethacin 50 Mg Capsule 1 Cap PO BID 10 08/31/20 Reported with food Omeprazole 20 Mg Tablet.dr 20 Mg PO DAILY 08/31/20 Reported Gabapentin 600 Mg Tablet 600 Mg PO BID 08/31/20 Reported Crestor (Rosuvastatin Calcium) 40 Mg Tablet 20 Mg PO HS 08/31/20 Reported Singulair Tablet (Montelukast Sodium) 10 Mg Tablet 10 Mg PO HS 08/31/20 Reported Metformin Hcl 850 Mg Tablet 850 Mg PO BIDWMEALS 08/31/20 Reported Losartan Potassium 100 Mg Tablet 100 Mg PO DAILY 08/31/20 Reported Lasix (Furosemide) 20 Mg Tablet 20 Mg PO DAILY 08/31/20 Reported Refresh Optive Eye Drops (Carboxymethylcellulos/Glycerin) 15 Ml Drops 1 Drop EACHEYE BID PRN 08/31/20 Reported Prednisone 20 Mg Tablet 10 Mg PO DAILY 08/31/20 Reported Ropinirole Hcl 5 Mg Tablet 5 Mg PO QHS 08/31/20 Reported Impression . For [place] 30 Respiratory failure secondary to COVID-19 viral pneumonia Patient not doing as well as yesterday, may require intubation sometime this morning. The above was discussed with patient and . INDRA YAÑEZ MD Sep 01, 2020 10:20
[2020-09-01] MEDS ORDERED: SUCCINYLCHOLINE 200 MG/10 ML VIAL. ONE (10:27)
[2020-09-01] MEDS ORDERED: ETOMIDATE 20 MG/10 ML VIAL. IV ONE ×2 (10:28→11:00)
[2020-09-01] MEDS ORDERED: POLYVINYL ALCOHOL 1.4% OPHTH SOLUTION 15ML BOTTLE. OU PRN (10:30)
[2020-09-01] MEDS ORDERED: MIDAZOLAM HCL/PF 5 MG/5 ML VIAL. IV ONE (10:30)
[2020-09-01] MEDS ORDERED: MIDAZOLAM 100mg/100ml NS BAG 100 ML IV PRN (10:30)
[2020-09-01] MEDS ORDERED: diphenhydrAMINE 50 MG/ML VIAL IVP PRN (10:30)
[2020-09-01] MEDS ORDERED: MIDAZOLAM HCL/PF 5 MG/5 ML VIAL. ONE (10:34)
--- NOTE | 2020-09-01 10:54 | CONS ---
DATE OF CONSULTATION: 09/01/2020 ATTENDING PHYSICIAN: Naveed Sethi MD REASON FOR CONSULTATION: The patient is seen in pulmonary consultation at the request of Dr. Sethi for COVID-19 viral pneumonia, respiratory failure. HISTORY OF PRESENT ILLNESS: The patient is a 60-year-old with past medical history of type 2 diabetes, obstructive sleep apnea, obesity. No history of respiratory failure in the past requiring oxygen supplementation, was at the [facility] and tested positive for COVID-19 on . He was treated with IV remdesivir, Decadron, finished a 5-day course of antibiotics. The patient continued to have fever. He was having an increasingly more shortness of air. The patient's family and the patient himself requested transfer. We accepted him yesterday. This morning, he is on BiPAP. He was doing okay up until the time that I arrived and walked into his room, he was having coughing spells, bring up some mucus and the saturation dropped into the mid 80s. Initially, he was placed on nasal cannula. He also required Vapotherm at one point. Over the last several days, he has been on BiPAP. I reviewed some of his old medical records. He had a D-dimer, which was elevated more than likely related to COVID-19. CT angiogram was performed, which revealed no evidence of pulmonary emboli. There was ground-glass opacities. The patient is currently awake, alert, following commands. No chest pain. No pressure. PAST MEDICAL HISTORY: As indicated above, insulin-dependent diabetes, coronary artery disease, hypertension, obstructive sleep apnea. Apparently, he was nontolerant to CPAP. There is prior history of morbid obesity, left bundle branch block. ALLERGIES: LISINOPRIL AND FLUNISOLIDE. REVIEW OF SYSTEMS: Unobtainable secondary to the patient's condition. SOCIAL HISTORY: There is no history of tobacco dependence or alcoholism. CURRENT MEDICATION: List was reviewed. PHYSICAL EXAMINATION: GENERAL: The patient was in the Intensive Care Unit, currently on AVAPS, saturations have dropped since he had a coughing spell. He continues to have a fever. He is awake, alert, following commands. He is a morbid obese individual. HEENT: Eyes, the sclerae were nonicteric. NECK: Jugular venous distention could not be assessed secondary to body habitus. CHEST: Full expansion. LUNGS: Adequate flow with no wheezes. CARDIOVASCULAR: Regular rate and rhythm with S1, S2, no S3. ABDOMEN: Obese. EXTREMITIES: No pitting edema. NEUROLOGIC: The patient was awake, alert, following commands. A detailed neuro exam was not performed. LABORATORY DATA: White count was 12,000. Arterial blood gas this morning, pH of 7.50, PaCO2 of 36, PaO2 of 59 on 100% BiPAP. Electrolytes were noted. BUN was noted. AST was elevated. Albumin was low. IMAGING: Chest x-ray was reviewed, bilateral interstitial prominent infiltrates. IMPRESSION: 1. Acute hypoxemic respiratory failure. 2. COVID-19 viral pneumonia. 3. Fever secondary to above. 4. Elevated D-dimer secondary to above. 5. Recent CT angiogram negative for pulmonary embolism. 6. Morbid obesity. 7. Obstructive sleep apnea. 8. Diabetes. PLAN: The patient has been tolerating BiPAP. This morning, he appears to have increased work of breathing. He is having a paroxysmal coughing spells, dropping his saturation. I monitored him for 10-15 minutes with no significant improvement. I will discuss the above with his , I suspect he will be intubated sometime this morning. I discussed the above findings with the patient. He did understand that he will require endotracheal intubation. He will be sedated while on mechanical ventilation. He has finished a course of IV remdesivir. We will continue dexamethasone for a total of 10 days. Continue empiric antibiotics. Continue DVT prophylaxis and GI prophylaxis. Total cumulative critical care time from 9:25 a.m. to 10:19 a.m. INDRA YAÑEZ MD DR: NAYA/milan JOB#: [id number] / [id number]
[2020-09-01] MEDS ORDERED: SUCCINYLCHOLINE 200 MG/10 ML VIAL. IV ONE (11:00)
[2020-09-01] MEDS: MIDAZOLAM 100mg/100ml NS BAG 100 ML IV PRN ×2 (11:07→18:02)
[2020-09-01] MEDS ORDERED: VECURONIUM BOLUS 10 MG VIAL. IV ONE ×2 (11:09→11:15)
[2020-09-01] MEDS: PROPOFOL 100 ML IV PRN ×3 (11:23→23:21)
--- NOTE | 2020-09-01 11:59 | PDOC ---
Date and Time Called for stat intubation. Sa02 88% on BIPAP 100%. meds given etomidate 12mg, propofol 60mg, succinylcholine 120mg. 7.5 Ettube placed with glidescope size 3. Grade 1 view. +Etco2, bilat breath sounds. Current Medications Current Medications Sennosides (Senna) 17.2 mg PRN BID PRN PO CONSTIPATION; Start 08/31/20 at 18:15 Docusate Sodium (Colace) 100 mg PRN DAILY PRN PO HARD STOOLS; Start 08/31/20 at 18:15 Ondansetron HCl (Zofran) 4 mg PRN Q6HRS PRN IVP NAUSEA/VOMITING; Start 08/31/20 at 18:15 Insulin Human Lispro (HumaLOG) 0-9 UNITS TIDWMEALS SQ ; Start 09/01/20 at 08:00 Dextrose (Dextrose 50%-Water Syringe) 12.5 gm PRN Q15MIN PRN IV SEE COMMENTS; Start 08/31/20 at 18:15 Enoxaparin Sodium (Lovenox 40mg Syringe) 40 mg Q24H SQ ; Start 08/31/20 at 21:00; Stop 08/31/20 at 18:36; Status DC Pantoprazole Sodium (PROTONIX VIAL for IV PUSH) 40 mg DAILYAC IVP Last administered on 09/01/20at 08:17; Start 09/01/20 at 07:30 Enoxaparin Sodium (Lovenox 40mg Syringe) 40 mg BID SQ Last administered on 09/01/20at 08:17; Start 08/31/20 at 21:00 Dexamethasone Sodium Phosphate (Decadron) 6 mg DAILY IVP Last administered on 09/01/20at 08:32; Start 09/01/20 at 09:00 Ascorbic Acid (Vitamin C) 3,000 mg TID PO Last administered on 08/31/20at 20:06; Start 08/31/20 at 21:00 Thiamine HCl 100 mg/Dextrose 51 ml @ 102 mls/hr Q8HRS IV Last administered on 09/01/20at 05:39; Start 08/31/20 at 22:00 Insulin Glargine (Lantus Syringe) 40 unit DAILY SQ ; Start 09/01/20 at 09:00 Furosemide (Lasix) 20 mg DAILY PO ; Start 09/01/20 at 09:00; Stop 09/01/20 at 10:06; Status DC Metformin HCl (Glucophage) 850 mg BIDWMEALS PO ; Start 09/01/20 at 08:00 Methocarbamol (Robaxin) 750 mg BID PO Last administered on 08/31/20at 21:01; Start 08/31/20 at 21:00 Montelukast Sodium (Singulair) 10 mg HS PO Last administered on 08/31/20at 20:05; Start 08/31/20 at 21:00 Capsaicin (Zostrix) 1 chris QID TP Last administered on 08/31/20at 21:02; Start 08/31/20 at 21:00 Glycerin/ Hypromellose/ Polyethylene (Artificial Tears) 1 drop PRN BID PRN OU DRY EYE; Start 08/31/20 at 19:45; Stop 09/01/20 at 10:49; Status DC Gabapentin (Neurontin) 600 mg BID PO Last administered on 08/31/20at 20:05; Start 08/31/20 at 21:00 Indomethacin (Indocin) 50 mg BIDWMEALS PO Last administered on 08/31/20at 21:02; Start 08/31/20 at 21:00 Losartan Potassium (Cozaar) 100 mg DAILY PO ; Start 09/01/20 at 09:00; Stop 09/01/20 at 10:06; Status DC Non-Formulary Medication (Omeprazole ) 20 mg DAILY PO ; Start 09/01/20 at 09:00; Status UNV Ropinirole HCl (Requip) 5 mg QHS PO Last administered on 08/31/20at 20:06; Start 08/31/20 at 21:00 Atorvastatin Calcium (Lipitor) 80 mg QHS PO Last administered on 08/31/20at 20:07; Start 08/31/20 at 21:00 Vitamin D (Vitamin D3) 1,000 unit DAILY PO ; Start 09/01/20 at 09:00 Labetalol HCl (Normodyne Iv Push) 10 mg TID PRN PRN IVP HYPERTENSION Last administered on 09/01/20at 08:23; Start 08/31/20 at 21:45 Lorazepam (Ativan) 0.25 mg PRN Q6HRS PRN PO ANXIETY / AGITATION; Start 09/01/20 at 06:30 Benzonatate (Tessalon Perle) 100 mg PRN Q8HRS PRN PO COUGH Last administered on 09/01/20at 06:34; Start 09/01/20 at 06:30 Morphine Sulfate (Morphine Sulfate) 2 mg PRN Q2HR PRN IV PAIN Last administered on 09/01/20at 10:05; Start 09/01/20 at 06:30 Metoprolol Tartrate (Lopressor Vial) 5 mg 1X ONCE IVP ; Start 09/01/20 at 10:15; Stop 09/01/20 at 10:16; Status DC Acetaminophen (Tylenol Supp) 650 mg PRN Q6HRS PRN [place] MILD PAIN / TEMP > 100.3'F; Start 09/01/20 at 10:15 Metoprolol Tartrate (Lopressor Vial) 5 mg PRN Q6HRS PRN IVP HYPERTENSION; Start 09/01/20 at 10:15 Furosemide (Lasix) 20 mg DAILY IVP ; Start 09/01/20 at 10:30 Succinylcholine Chloride (Anectine) 200 mg STK-MED ONCE .ROUTE ; Start 09/01/20 at 10:27; Stop 09/01/20 at 10:28; Status DC Etomidate (Amidate) 20 mg STK-MED ONCE IV ; Start 09/01/20 at 10:28; Stop 09/01/20 at 10:28; Status DC Midazolam HCl (Versed) 5 mg STK-MED ONCE .ROUTE ; Start 09/01/20 at 10:34; Stop 09/01/20 at 10:35; Status DC Fentanyl Citrate 30 ml @ 0 mls/hr CONT PRN IV SEE PROTOCOL Last administered on 09/01/20at 11:13; Start 09/01/20 at 10:45 Midazolam HCl 100 ml @ 0 mls/hr CONT PRN IV SEE PROTOCOL Last administered on 09/01/20at 11:07; Start 09/01/20 at 10:45 Fentanyl Citrate 30 ml @ 0 mls/hr CONT PRN IV SEE PROTOCOL; Start 09/01/20 at 10:30; Status UNV Propofol 100 ml @ 0 mls/hr CONT PRN IV PER PROTOCOL Last administered on 09/01/20at 11:23; Start 09/01/20 at 10:30 Glycerin/ Hypromellose/ Polyethylene (Artificial Tears) 1 drop PRN Q1HR PRN OU DRY EYE; Start 09/01/20 at 10:30 Midazolam HCl 100 ml @ 0 mls/hr CONT PRN IV SEE PROTOCOL; Start 09/01/20 at 10:30; Status UNV Diphenhydramine HCl (Benadryl) 25 mg PRN Q15MIN PRN IVP EPS Symptoms; Start 09/01/20 at 10:30 Midazolam HCl (Versed) 5 mg 1X ONCE IV Last administered on 09/01/20at 11:07; Start 09/01/20 at 10:30; Stop 09/01/20 at 10:49; Status DC Etomidate (Amidate) 14 mg 1X ONCE IV Last administered on 09/01/20at 11:06; Start 09/01/20 at 11:00; Stop 09/01/20 at 11:02; Status DC Succinylcholine Chloride (Anectine) 120 mg 1X ONCE IV Last administered on 09/01/20at 11:03; Start 09/01/20 at 11:00; Stop 09/01/20 at 11:02; Status DC Vecuronium [place] (Norcuron Bolus) 10 mg STK-MED ONCE IV ; Start 09/01/20 at 11:09; Stop 09/01/20 at 11:09; Status DC Vecuronium [place] (Norcuron Bolus) 6 mg 1X ONCE IV Last administered on 09/01/20at 11:19; Start 09/01/20 at 11:15; Stop 09/01/20 at 11:17; Status DC Active Scripts Active Reported [cholecalcif] 25 Mcg PO DAILY Capsaicin 42.5 Gm Cream..g. 1 Chris TP QID [albuterol 90MCG] 2 Puff INH QID Robaxin-750 (Methocarbamol) 750 Mg Tablet 1 Tab PO BID 30 Days Indomethacin 50 Mg Capsule 1 Cap PO BID 10 Days with food Omeprazole 20 Mg Tablet.dr 20 Mg PO DAILY Gabapentin 600 Mg Tablet 600 Mg PO BID Crestor (Rosuvastatin Calcium) 40 Mg Tablet 20 Mg PO HS Singulair Tablet (Montelukast Sodium) 10 Mg Tablet 10 Mg PO HS Metformin Hcl 850 Mg Tablet 850 Mg PO BIDWMEALS Losartan Potassium 100 Mg Tablet 100 Mg PO DAILY Lasix (Furosemide) 20 Mg Tablet 20 Mg PO DAILY Refresh Optive Eye Drops (Carboxymethylcellulos/Glycerin) 15 Ml Drops 1 Drop EACHEYE BID PRN Prednisone 20 Mg Tablet 10 Mg PO DAILY Ropinirole Hcl 5 Mg Tablet 5 Mg PO QHS Pertinent Labs/Test Laboratory Tests Test 09/01/20 01:38 09/01/20 07:09 09/01/20 07:29 09/01/20 08:00 Troponin I Quantitative 0.024 ng/mL (0.000-0.055) White Blood Count 12.7 x10^3/uL (4.0-11.0) Red Blood Count 5.33 x10^6/uL (4.30-5.70) Hemoglobin 13.2 g/dL (13.0-17.5) Hematocrit 41.1 % (39.0-53.0) Mean Corpuscular Volume 77 fL (79-100) Mean Corpuscular Hemoglobin 25 pg (25-35) Mean Corpuscular Hemoglobin Concent 32 g/dL (31-37) Red Cell Distribution Width 15.2 % (11.5-14.5) Platelet Count 260 x10^3/uL (140-400) Neutrophils (%) (Auto) 92 % (31-73) Lymphocytes (%) (Auto) 5 % (24-48) Monocytes (%) (Auto) 1 % (0-9) Eosinophils (%) (Auto) 1 % (0-3) Basophils (%) (Auto) 1 % (0-3) Neutrophils # (Auto) 11.6 x10^3/uL (1.8-7.7) Lymphocytes # (Auto) 0.7 x10^3/uL (1.0-4.8) Monocytes # (Auto) 0.2 x10^3/uL (0.0-1.1) Eosinophils # (Auto) 0.1 x10^3/uL (0.0-0.7) Basophils # (Auto) 0.1 x10^3/uL (0.0-0.2) Segmented Neutrophils % 88 % (35-66) Band Neutrophils % 5 % (0-9) Lymphocytes % 4 % (24-48) Monocytes % 3 % (0-10) Platelet Estimate Adequate (ADEQUATE) Anisocytosis Slight Sodium Level 141 mmol/L (136-145) Potassium Level 4.3 mmol/L (3.5-5.1) Chloride Level 102 mmol/L (98-107) Carbon Dioxide Level 34 mmol/L (21-32) Anion Gap 5 (6-14) Blood Urea Nitrogen 23 mg/dL (8-26) Creatinine 1.2 mg/dL (0.7-1.3) Estimated GFR (Cockcroft-Gault) 62.2 BUN/Creatinine Ratio 19 (6-20) Glucose Level 193 mg/dL (70-99) Calcium Level 9.0 mg/dL (8.5-10.1) Phosphorus Level 3.5 mg/dL (2.6-4.7) Magnesium Level 2.8 mg/dL (1.8-2.4) Total Bilirubin 1.0 mg/dL (0.2-1.0) Aspartate Amino Transf (AST/SGOT) 53 U/L (15-37) Alanine Aminotransferase (ALT/SGPT) 39 U/L (16-63) Alkaline Phosphatase 273 U/L (46-116) Total Protein 6.7 g/dL (6.4-8.2) Albumin 2.3 g/dL (3.4-5.0) Albumin/Globulin Ratio 0.5 (1.0-1.7) Glucose (Fingerstick) 174 mg/dL (70-99) O2 Saturation 91 % (92-99) Arterial Blood pH 7.50 (7.35-7.45) Arterial Blood pH (Temp corrected) 7.46 Arterial Blood pCO2 at Patient Temp 36 mmHg (35-46) Arterial Blood pCO2 (Temp correct) 41 mmHg Arterial Blood pO2 at Patient Temp 59 mmHg (75-108) Arterial Blood pO2 (Temp corrected) 72 mmHg Arterial Blood HCO3 28 mmol/L (21-28) Arterial Blood Base Excess 5 mmol/L (-3-3) FiO2 100/bipap Laboratory Tests Test 09/01/20 01:38 09/01/20 07:09 09/01/20 07:29 09/01/20 08:00 Troponin I Quantitative 0.024 ng/mL (0.000-0.055) White Blood Count 12.7 x10^3/uL (4.0-11.0) Red Blood Count 5.33 x10^6/uL (4.30-5.70) Hemoglobin 13.2 g/dL (13.0-17.5) Hematocrit 41.1 % (39.0-53.0) Mean Corpuscular Volume 77 fL (79-100) Mean Corpuscular Hemoglobin 25 pg (25-35) Mean Corpuscular Hemoglobin Concent 32 g/dL (31-37) Red Cell Distribution Width 15.2 % (11.5-14.5) Platelet Count 260 x10^3/uL (140-400) Neutrophils (%) (Auto) 92 % (31-73) Lymphocytes (%) (Auto) 5 % (24-48) Monocytes (%) (Auto) 1 % (0-9) Eosinophils (%) (Auto) 1 % (0-3) Basophils (%) (Auto) 1 % (0-3) Neutrophils # (Auto) 11.6 x10^3/uL (1.8-7.7) Lymphocytes # (Auto) 0.7 x10^3/uL (1.0-4.8) Monocytes # (Auto) 0.2 x10^3/uL (0.0-1.1) Eosinophils # (Auto) 0.1 x10^3/uL (0.0-0.7) Basophils # (Auto) 0.1 x10^3/uL (0.0-0.2) Segmented Neutrophils % 88 % (35-66) Band Neutrophils % 5 % (0-9) Lymphocytes % 4 % (24-48) Monocytes % 3 % (0-10) Platelet Estimate Adequate (ADEQUATE) Anisocytosis Slight Sodium Level 141 mmol/L (136-145) Potassium Level 4.3 mmol/L (3.5-5.1) Chloride Level 102 mmol/L (98-107) Carbon Dioxide Level 34 mmol/L (21-32) Anion Gap 5 (6-14) Blood Urea Nitrogen 23 mg/dL (8-26) Creatinine 1.2 mg/dL (0.7-1.3) Estimated GFR (Cockcroft-Gault) 62.2 BUN/Creatinine Ratio 19 (6-20) Glucose Level 193 mg/dL (70-99) Calcium Level 9.0 mg/dL (8.5-10.1) Phosphorus Level 3.5 mg/dL (2.6-4.7) Magnesium Level 2.8 mg/dL (1.8-2.4) Total Bilirubin 1.0 mg/dL (0.2-1.0) Aspartate Amino Transf (AST/SGOT) 53 U/L (15-37) Alanine Aminotransferase (ALT/SGPT) 39 U/L (16-63) Alkaline Phosphatase 273 U/L (46-116) Total Protein 6.7 g/dL (6.4-8.2) Albumin 2.3 g/dL (3.4-5.0) Albumin/Globulin Ratio 0.5 (1.0-1.7) Glucose (Fingerstick) 174 mg/dL (70-99) O2 Saturation 91 % (92-99) Arterial Blood pH 7.50 (7.35-7.45) Arterial Blood pH (Temp corrected) 7.46 Arterial Blood pCO2 at Patient Temp 36 mmHg (35-46) Arterial Blood pCO2 (Temp correct) 41 mmHg Arterial Blood pO2 at Patient Temp 59 mmHg (75-108) Arterial Blood pO2 (Temp corrected) 72 mmHg Arterial Blood HCO3 28 mmol/L (21-28) Arterial Blood Base Excess 5 mmol/L (-3-3) FiO2 100/bipap LAST VITALS Vital Signs Date Time Temp Pulse Resp B/P (MAP) Pulse Ox O2 Delivery O2 Flow Rate FiO2 09/01/20 11:21 90 Ventilator 09/01/20 11:13 24 09/01/20 11:00 102.8 102 105/87 (93) 102.8 09/01/20 09:00 40.0 BRYANGLENN CASPER Homer FIEDLS Sep 01, 2020 11:59
[2020-09-01 12:32] LABS: BASE EXCESS COOX 2 mmol/L (-3-3); CORRECTED PCO2 COOX 74 mmHg; CORRECTED PH COOX 7.24; CORRECTED PO2 COOX 83 mmHg; HCO3 COOX 30 mmol/L (21-28); METHEMOGLOBIN 0.4 % (0.0-1.9); OXYHEMOGLOBIN 89.6 %; PO2 COOX 70 mmHg (75-108); SAT O2 COOX 90 % (92-99)
[2020-09-01] MEDS: FUROSEMIDE 20 MG/2 ML VIAL. IVP SCH ×2 (12:55→12:56)
[2020-09-01] MEDS ORDERED: FUROSEMIDE 40 MG/4 ML VIAL. IVP ONE (13:00)
--- NOTE | 2020-09-01 13:00 | RAD ---
XR CHEST 1V History: Reason: ETT/OG TUBE placement / Spl. Instructions: / History: Comparison: September 01, 2020 Findings: Interval intubation with endotracheal tube tip 8.37 m above the tamara. Enteric tube with tip project ing over the gastric fundus. Increased interstitial and alveolar opacities. No pleural effusion. No p neumothorax. Unchanged heart size. Impression: 1. Interval intubation and placement of endotracheal tube. 2. Increased interstitial and alveolar opacities. Electronically signed by: Adams Cortés DO (09/01/2020 12:57 PM) [id number]
[2020-09-01 13:27] LABS: PCO2 COOX 66 mmHg (35-46)
--- NOTE | 2020-09-01 13:51 | PDOC ---
Date and Time Called to place hemodynamic monitors in recently intubated Covid pneumonia resp failure patient. Sterile technique after chlorasept prep. Gown,gloves,N95,Mask,eye protection, large drape R radial arterial line. Sutured in, biopatch and sterile dressing R IJ 3 lumen CVP. Brief run VT with wire, resolved with withdrawal. Sutured in 16cm,Free flow all ports. Biopatch and sterile dressing Distal port transduced. CVP 11mmHg (on 15 PEEP) Current Medications Current Medications Sennosides (Senna) 17.2 mg PRN BID PRN PO CONSTIPATION; Start 08/31/20 at 18:15 Docusate Sodium (Colace) 100 mg PRN DAILY PRN PO HARD STOOLS; Start 08/31/20 at 18:15 Ondansetron HCl (Zofran) 4 mg PRN Q6HRS PRN IVP NAUSEA/VOMITING; Start 08/31/20 at 18:15 Insulin Human Lispro (HumaLOG) 0-9 UNITS TIDWMEALS SQ ; Start 09/01/20 at 08:00 Dextrose (Dextrose 50%-Water Syringe) 12.5 gm PRN Q15MIN PRN IV SEE COMMENTS; Start 08/31/20 at 18:15 Enoxaparin Sodium (Lovenox 40mg Syringe) 40 mg Q24H SQ ; Start 08/31/20 at 21:00; Stop 08/31/20 at 18:36; Status DC Pantoprazole Sodium (PROTONIX VIAL for IV PUSH) 40 mg DAILYAC IVP Last administered on 09/01/20at 08:17; Start 09/01/20 at 07:30 Enoxaparin Sodium (Lovenox 40mg Syringe) 40 mg BID SQ Last administered on 09/01/20at 08:17; Start 08/31/20 at 21:00 Dexamethasone Sodium Phosphate (Decadron) 6 mg DAILY IVP Last administered on 09/01/20at 08:32; Start 09/01/20 at 09:00 Ascorbic Acid (Vitamin C) 3,000 mg TID PO Last administered on 08/31/20at 20:06; Start 08/31/20 at 21:00 Thiamine HCl 100 mg/Dextrose 51 ml @ 102 mls/hr Q8HRS IV Last administered on 09/01/20at 05:39; Start 08/31/20 at 22:00 Insulin Glargine (Lantus Syringe) 40 unit DAILY SQ ; Start 09/01/20 at 09:00 Furosemide (Lasix) 20 mg DAILY PO ; Start 09/01/20 at 09:00; Stop 09/01/20 at 10:06; Status DC Metformin HCl (Glucophage) 850 mg BIDWMEALS PO ; Start 09/01/20 at 08:00 Methocarbamol (Robaxin) 750 mg BID PO Last administered on 08/31/20at 21:01; Start 08/31/20 at 21:00 Montelukast Sodium (Singulair) 10 mg HS PO Last administered on 08/31/20at 20:05; Start 08/31/20 at 21:00 Capsaicin (Zostrix) 1 chris QID TP Last administered on 08/31/20at 21:02; Start 08/31/20 at 21:00 Glycerin/ Hypromellose/ Polyethylene (Artificial Tears) 1 drop PRN BID PRN OU DRY EYE; Start 08/31/20 at 19:45; Stop 09/01/20 at 10:49; Status DC Gabapentin (Neurontin) 600 mg BID PO Last administered on 08/31/20at 20:05; Start 08/31/20 at 21:00 Indomethacin (Indocin) 50 mg BIDWMEALS PO Last administered on 08/31/20at 21:02; Start 08/31/20 at 21:00 Losartan Potassium (Cozaar) 100 mg DAILY PO ; Start 09/01/20 at 09:00; Stop 09/01/20 at 10:06; Status DC Non-Formulary Medication (Omeprazole ) 20 mg DAILY PO ; Start 09/01/20 at 09:00; Status UNV Ropinirole HCl (Requip) 5 mg QHS PO Last administered on 08/31/20at 20:06; Start 08/31/20 at 21:00 Atorvastatin Calcium (Lipitor) 80 mg QHS PO Last administered on 08/31/20at 20:07; Start 08/31/20 at 21:00 Vitamin D (Vitamin D3) 1,000 unit DAILY PO ; Start 09/01/20 at 09:00 Labetalol HCl (Normodyne Iv Push) 10 mg TID PRN PRN IVP HYPERTENSION Last admi nistered on 09/01/20at 08:23; Start 08/31/20 at 21:45 Lorazepam (Ativan) 0.25 mg PRN Q6HRS PRN PO ANXIETY / AGITATION; Start 09/01/20 at 06:30 Benzonatate (Tessalon Perle) 100 mg PRN Q8HRS PRN PO COUGH Last administered on 09/01/20at 06:34; Start 09/01/20 at 06:30 Morphine Sulfate (Morphine Sulfate) 2 mg PRN Q2HR PRN IV PAIN Last administered on 09/01/20at 10:05; Start 09/01/20 at 06:30 Metoprolol Tartrate (Lopressor Vial) 5 mg 1X ONCE IVP ; Start 09/01/20 at 10:15; Stop 09/01/20 at 10:16; Status DC Acetaminophen (Tylenol Supp) 650 mg PRN Q6HRS PRN ID MILD PAIN / TEMP > 100.3'F; Start 09/01/20 at 10:15 Metoprolol Tartrate (Lopressor Vial) 5 mg PRN Q6HRS PRN IVP HYPERTENSION; Start 09/01/20 at 10:15 Furosemide (Lasix) 20 mg DAILY IVP Last administered on 09/01/20at 12:56; Start 09/01/20 at 10:30 Succinylcholine Chloride (Anectine) 200 mg STK-MED ONCE .ROUTE ; Start 09/01/20 at 10:27; Stop 09/01/20 at 10:28; Status DC Etomidate (Amidate) 20 mg STK-MED ONCE IV ; Start 09/01/20 at 10:28; Stop 09/01/20 at 10:28; Status DC Midazolam HCl (Versed) 5 mg STK-MED ONCE .ROUTE ; Start 09/01/20 at 10:34; Stop 09/01/20 at 10:35; Status DC Fentanyl Citrate 30 ml @ 0 mls/hr CONT PRN IV SEE PROTOCOL Last administered on 09/01/20at 11:13; Start 09/01/20 at 10:45 Midazolam HCl 100 ml @ 0 mls/hr CONT PRN IV SEE PROTOCOL Last administered on 09/01/20at 11:07; Start 09/01/20 at 10:45 Fentanyl Citrate 30 ml @ 0 mls/hr CONT PRN IV SEE PROTOCOL; Start 09/01/20 at 10:30; Status UNV Propofol 100 ml @ 0 mls/hr CONT PRN IV PER PROTOCOL Last administered on 09/01/20at 11:23; Start 09/01/20 at 10:30 Glycerin/ Hypromellose/ Polyethylene (Artificial Tears) 1 drop PRN Q1HR PRN OU DRY EYE; Start 09/01/20 at 10:30 Midazolam HCl 100 ml @ 0 mls/hr CONT PRN IV SEE PROTOCOL; Start 09/01/20 at 10:30; Status UNV Diphenhydramine HCl (Benadryl) 25 mg PRN Q15MIN PRN IVP EPS Symptoms; Start 1 at 10:30 Midazolam HCl (Versed) 5 mg 1X ONCE IV Last administered on 09/01/20at 11:07; Start 09/01/20 at 10:30; Stop 09/01/20 at 10:49; Status DC Etomidate (Amidate) 14 mg 1X ONCE IV Last administered on 09/01/20at 11:06; Start 09/01/20 at 11:00; Stop 09/01/20 at 11:02; Status DC Succinylcholine Chloride (Anectine) 120 mg 1X ONCE IV Last administered on 09/01/20at 11:03; Start 09/01/20 at 11:00; Stop 09/01/20 at 11:02; Status DC Vecuronium [place] (Norcuron Bolus) 10 mg STK-MED ONCE IV ; Start 09/01/20 at 11:09; Stop 09/01/20 at 11:09; Status DC Vecuronium [place] (Norcuron Bolus) 6 mg 1X ONCE IV Last administered on 09/01/20at 11:19; Start 09/01/20 at 11:15; Stop 09/01/20 at 11:17; Status DC Acetaminophen (Tylenol) 650 mg PRN Q6HRS PRN PEG MILD PAIN / TEMP > 100.3'F; Start 09/01/20 at 12:00 Vecuronium [place] (Norcuron Bolus) 6 mg PRN Q1HR PRN IV SEE ADMIN INSTRUCTIONS; Start 09/01/20 at 12:30 Furosemide (Lasix) 40 mg 1X ONCE IVP Last administered on 09/01/20at 13:00; Start 09/01/20 at 13:00; Stop 09/01/20 at 13:01; Status DC Dopamine HCl/ Dextrose 250 ml @ 26.063 mls/ hr CONT PRN IV SEE I/O RECORD; Start 09/01/20 at 13:00 Active Scripts Active Reported [cholecalcif] 25 Mcg PO DAILY Capsaicin 42.5 Gm Cream..g. 1 Chris TP QID [albuterol 90MCG] 2 Puff INH QID Robaxin-750 (Methocarbamol) 750 Mg Tablet 1 Tab PO BID 30 Days Indomethacin 50 Mg Capsule 1 Cap PO BID 10 Days with food Omeprazole 20 Mg Tablet.dr 20 Mg PO DAILY Gabapentin 600 Mg Tablet 600 Mg PO BID Crestor (Rosuvastatin Calcium) 40 Mg Tablet 20 Mg PO HS Singulair Tablet (Montelukast Sodium) 10 Mg Tablet 10 Mg PO HS Metformin Hcl 850 Mg Tablet 850 Mg PO BIDWMEALS Losartan Potassium 100 Mg Tablet 100 Mg PO DAILY Lasix (Furosemide) 20 Mg Tablet 20 Mg PO DAILY Refresh Optive Eye Drops (Carboxymethylcellulos/Glycerin) 15 Ml Drops 1 Drop EACHEYE BID PRN Prednisone 20 Mg Tablet 10 Mg PO DAILY Ropinirole Hcl 5 Mg Tablet 5 Mg PO QHS Pertinent Labs/Test Laboratory Tests Test 09/01/20 01:38 09/01/20 07:09 09/01/20 07:29 09/01/20 08:00 Troponin I Quantitative 0.024 ng/mL (0.000-0.055) White Blood Count 12.7 x10^3/uL (4.0-11.0) Red Blood Count 5.33 x10^6/uL (4.30-5.70) Hemoglobin 13.2 g/dL (13.0-17.5) Hematocrit 41.1 % (39.0-53.0) Mean Corpuscular Volume 77 fL (79-100) Mean Corpuscular Hemoglobin 25 pg (25-35) Mean Corpuscular Hemoglobin Concent 32 g/dL (31-37) Red Cell Distribution Width 15.2 % (11.5-14.5) Platelet Count 260 x10^3/uL (140-400) Neutrophils (%) (Auto) 92 % (31-73) Lymphocytes (%) (Auto) 5 % (24-48) Monocytes (%) (Auto) 1 % (0-9) Eosinophils (%) (Auto) 1 % (0-3) Basophils (%) (Auto) 1 % (0-3) Neutrophils # (Auto) 11.6 x10^3/uL (1.8-7.7) Lymphocytes # (Auto) 0.7 x10^3/uL (1.0-4.8) Monocytes # (Auto) 0.2 x10^3/uL (0.0-1.1) Eosinophils # (Auto) 0.1 x10^3/uL (0.0-0.7) Basophils # (Auto) 0.1 x10^3/uL (0.0-0.2) Segmented Neutrophils % 88 % (35-66) Band Neutrophils % 5 % (0-9) Lymphocytes % 4 % (24-48) Monocytes % 3 % (0-10) Platelet Estimate Adequate (ADEQUATE) Anisocytosis Slight Sodium Level 141 mmol/L (136-145) Potassium Level 4.3 mmol/L (3.5-5.1) Chloride Level 102 mmol/L (98-107) Carbon Dioxide Level 34 mmol/L (21-32) Anion Gap 5 (6-14) Blood Urea Nitrogen 23 mg/dL (8-26) Creatinine 1.2 mg/dL (0.7-1.3) Estimated GFR (Cockcroft-Gault) 62.2 BUN/Creatinine Ratio 19 (6-20) Glucose Level 193 mg/dL (70-99) Calcium Level 9.0 mg/dL (8.5-10.1) Phosphorus Level 3.5 mg/dL (2.6-4.7) Magnesium Level 2.8 mg/dL (1.8-2.4) Total Bilirubin 1.0 mg/dL (0.2-1.0) Aspartate Amino Transf (AST/SGOT) 53 U/L (15-37) Alanine Aminotransferase (ALT/SGPT) 39 U/L (16-63) Alkaline Phosphatase 273 U/L (46-116) Total Protein 6.7 g/dL (6.4-8.2) Albumin 2.3 g/dL (3.4-5.0) Albumin/Globulin Ratio 0.5 (1.0-1.7) Glucose (Fingerstick) 174 mg/dL (70-99) O2 Saturation 91 % (92-99) Arterial Blood pH 7.50 (7.35-7.45) Arterial Blood pH (Temp corrected) 7.46 Arterial Blood pCO2 at Patient Temp 36 mmHg (35-46) Arterial Blood pCO2 (Temp correct) 41 mmHg Arterial Blood pO2 at Patient Temp 59 mmHg (75-108) Arterial Blood pO2 (Temp corrected) 72 mmHg Arterial Blood HCO3 28 mmol/L (21-28) Arterial Blood Base Excess 5 mmol/L (-3-3) FiO2 100/bipap Test 09/01/20 12:25 O2 Saturation 90 % (92-99) Arterial Blood pH 7.28 (7.35-7.45) Arterial Blood pH (Temp corrected) 7.24 Arterial Blood pCO2 at Patient Temp 66 mmHg (35-46) Arterial Blood pCO2 (Temp correct) 74 mmHg Arterial Blood pO2 at Patient Temp 70 mmHg (75-108) Arterial Blood pO2 (Temp corrected) 83 mmHg Arterial Blood HCO3 30 mmol/L (21-28) Arterial Blood Base Excess 2 mmol/L (-3-3) Oxyhemoglobin 89.6 % Methemoglobin 0.4 % (0.0-1.9) Carbon Monoxide, Quantitative 0.5 % (0.0-1.9) FiO2 100% + 14 peep Laboratory Tests Test 09/01/20 01:38 09/01/20 07:09 09/01/20 07:29 09/01/20 08:00 Troponin I Quantitative 0.024 ng/mL (0.000-0.055) White Blood Count 12.7 x10^3/uL (4.0-11.0) Red Blood Count 5.33 x10^6/uL (4.30-5.70) Hemoglobin 13.2 g/dL (13.0-17.5) Hematocrit 41.1 % (39.0-53.0) Mean Corpuscular Volume 77 fL (79-100) Mean Corpuscular Hemoglobin 25 pg (25-35) Mean Corpuscular Hemoglobin Concent 32 g/dL (31-37) Red Cell Distribution Width 15.2 % (11.5-14.5) Platelet Count 260 x10^3/uL (140-400) Neutrophils (%) (Auto) 92 % (31-73) Lymphocytes (%) (Auto) 5 % (24-48) Monocytes (%) (Auto) 1 % (0-9) Eosinophils (%) (Auto) 1 % (0-3) Basophils (%) (Auto) 1 % (0-3) Neutrophils # (Auto) 11.6 x10^3/uL (1.8-7.7) Lymphocytes # (Auto) 0.7 x10^3/uL (1.0-4.8) Monocytes # (Auto) 0.2 x10^3/uL (0.0-1.1) Eosinophils # (Auto) 0.1 x10^3/uL (0.0-0.7) Basophils # (Auto) 0.1 x10^3/uL (0.0-0.2) Segmented Neutrophils % 88 % (35-66) Band Neutrophils % 5 % (0-9) Lymphocytes % 4 % (24-48) Monocytes % 3 % (0-10) Platelet Estimate Adequate (ADEQUATE) Anisocytosis Slight Sodium Level 141 mmol/L (136-145) Potassium Level 4.3 mmol/L (3.5-5.1) Chloride Level 102 mmol/L (98-107) Carbon Dioxide Level 34 mmol/L (21-32) Anion Gap 5 (6-14) Blood Urea Nitrogen 23 mg/dL (8-26) Creatinine 1.2 mg/dL (0.7-1.3) Estimated GFR (Cockcroft-Gault) 62.2 BUN/Creatinine Ratio 19 (6-20) Glucose Level 193 mg/dL (70-99) Calcium Level 9.0 mg/dL (8.5-10.1) Phosphorus Level 3.5 mg/dL (2.6-4.7) Magnesium Level 2.8 mg/dL (1.8-2.4) Total Bilirubin 1.0 mg/dL (0.2-1.0) Aspartate Amino Transf (AST/SGOT) 53 U/L (15-37) Alanine Aminotransferase (ALT/SGPT) 39 U/L (16-63) Alkaline Phosphatase 273 U/L (46-116) Total Protein 6.7 g/dL (6.4-8.2) Albumin 2.3 g/dL (3.4-5.0) Albumin/Globulin Ratio 0.5 (1.0-1.7) Glucose (Fingerstick) 174 mg/dL (70-99) O2 Saturation 91 % (92-99) Arterial Blood pH 7.50 (7.35-7.45) Arterial Blood pH (Temp corrected) 7.46 Arterial Blood pCO2 at Patient Temp 36 mmHg (35-46) Arterial Blood pCO2 (Temp correct) 41 mmHg Arterial Blood pO2 at Patient Temp 59 mmHg (75-108) Arterial Blood pO2 (Temp corrected) 72 mmHg Arterial Blood HCO3 28 mmol/L (21-28) Arterial Blood Base Excess 5 mmol/L (-3-3) FiO2 100/bipap Test 09/01/20 12:25 O2 Saturation 90 % (92-99) Arterial Blood pH 7.28 (7.35-7.45) Arterial Blood pH (Temp corrected) 7.24 Arterial Blood pCO2 at Patient Temp 66 mmHg (35-46) Arterial Blood pCO2 (Temp correct) 74 mmHg Arterial Blood pO2 at Patient Temp 70 mmHg (75-108) Arterial Blood pO2 (Temp corrected) 83 mmHg Arterial Blood HCO3 30 mmol/L (21-28) Arterial Blood Base Excess 2 mmol/L (-3-3) Oxyhemoglobin 89.6 % Methemoglobin 0.4 % (0.0-1.9) Carbon Monoxide, Quantitative 0.5 % (0.0-1.9) FiO2 100% + 14 peep LAST VITALS Vital Signs Date Time Temp Pulse Resp B/P (MAP) Pulse Ox O2 Delivery O2 Flow Rate FiO2 09/01/20 12:00 103.0 111 24 164/78 (106) 89 Ventilator 103.0 09/01/20 09:00 40.0 MAIA DE LA FUENTE MD Sep 01, 2020 13:51
[2020-09-01] MEDS: VECURONIUM BOLUS 10 MG VIAL. IV PRN ×2 (13:52→15:08)
--- NOTE | 2020-09-01 14:19 | RAD ---
EXAM: CHEST 1 VIEW History : Central line insertion. COMPARISON: 09/01/2020 TECHNIQUE: Single portable radiograph of the chest FINDINGS: The ET tube is identified in the trachea at the level of the clavicles. The feeding tube i s identified in the stomach. Interval placement of right-sided internal jugular line with the tip pro jecting in the SVC. Mild prominent bilateral interstitial and airspace opacities that exam. No pneumo thorax. IMPRESSION: 1. Interval placement of right-sided internal jugular line with the tip projecting in the SVC. No pn eumothorax. 2. Mild prominent bilateral interstitial and airspace opacities likely edema or infiltrates. Electronically signed by: Jack Coughlin MD (09/01/2020 2:17 PM) [id number]
[2020-09-01] MEDS: ACETAMINOPHEN 650 MG/20.3 ML SOLUTION. PEG PRN (14:58)
[2020-09-01] MEDS: cefTRIAXone IV Push 1 GM VIAL. IVP SCH (14:58)
[2020-09-01] MEDS: fentaNYL HIGH DOSE PCA 55 ML IV PRN (14:59)
--- NOTE | 2020-09-01 15:17 | PDOC ---
Date and Time 3 lumen tip distal SVC, otherwise CXR unchanged from post intubation CXR Current Medications Current Medications Sennosides (Senna) 17.2 mg PRN BID PRN PO CONSTIPATION; Start 08/31/20 at 18:15 Docusate Sodium (Colace) 100 mg PRN DAILY PRN PO HARD STOOLS; Start 08/31/20 at 18:15 Ondansetron HCl (Zofran) 4 mg PRN Q6HRS PRN IVP NAUSEA/VOMITING; Start 08/31/20 at 18:15 Insulin Human Lispro (HumaLOG) 0-9 UNITS TIDWMEALS SQ ; Start 09/01/20 at 08:00 Dextrose (Dextrose 50%-Water Syringe) 12.5 gm PRN Q15MIN PRN IV SEE COMMENTS; Start 08/31/20 at 18:15 Enoxaparin Sodium (Lovenox 40mg Syringe) 40 mg Q24H SQ ; Start 08/31/20 at 21:00; Stop 08/31/20 at 18:36; Status DC Pantoprazole Sodium (PROTONIX VIAL for IV PUSH) 40 mg DAILYAC IVP Last administered on 09/01/20at 08:17; Start 09/01/20 at 07:30 Enoxaparin Sodium (Lovenox 40mg Syringe) 40 mg BID SQ Last administered on 09/01/20at 08:17; Start 08/31/20 at 21:00 Dexamethasone Sodium Phosphate (Decadron) 6 mg DAILY IVP Last administered on 09/01/20at 08:32; Start 09/01/20 at 09:00 Ascorbic Acid (Vitamin C) 3,000 mg TID PO Last administered on 08/31/20at 20:06; Start 08/31/20 at 21:00 Thiamine HCl 100 mg/Dextrose 51 ml @ 102 mls/hr Q8HRS IV Last administered on 09/01/20at 14:19; Start 08/31/20 at 22:00 Insulin Glargine (Lantus Syringe) 40 unit DAILY SQ ; Start 09/01/20 at 09:00 Furosemide (Lasix) 20 mg DAILY PO ; Start 09/01/20 at 09:00; Stop 09/01/20 at 10:06; Status DC Metformin HCl (Glucophage) 850 mg BIDWMEALS PO ; Start 12/30/20 at 08:00 Methocarbamol (Robaxin) 750 mg BID PO Last administered on 08/31/20 21:01; Start 08/31/20 at 21:00 Montelukast Sodium (Singulair) 10 mg HS PO Last administered on 08/31/20at 20:05; Start 08/31/20 at 21:00 Capsaicin (Zostrix) 1 chris QID TP Last administered on 08/31/20at 21:02; Start 08/31/20 at 21:00 Glycerin/ Hypromellose/ Polyethylene (Artificial Tears) 1 drop PRN BID PRN OU DRY EYE; Start 08/31/20 at 19:45; Stop 09/01/20 at 10:49; Status DC Gabapentin (Neurontin) 600 mg BID PO Last administered on 08/31/20at 20:05; Start 08/31/20 at 21:00 Indomethacin (Indocin) 50 mg BIDWMEALS PO Last administered on 08/31/20at 21:02; Start 08/31/20 at 21:00 Losartan Potassium (Cozaar) 100 mg DAILY PO ; Start 09/01/20 at 09:00; Stop 09/01/20 at 10:06; Status DC Non-Formulary Medication (Omeprazole ) 20 mg DAILY PO ; Start 09/01/20 at 09:00; Status UNV Ropinirole HCl (Requip) 5 mg QHS PO Last administered on 08/31/20at 20:06; Start 08/31/20 at 21:00 Atorvastatin Calcium (Lipitor) 80 mg QHS PO Last administered on 08/31/20at 20:07; Start 08/31/20 at 21:00 Vitamin D (Vitamin D3) 1,000 unit DAILY PO ; Start 09/01/20 at 09:00 Labetalol HCl (Normodyne Iv Push) 10 mg TID PRN PRN IVP HYPERTENSION Last administered on 09/01/20at 08:23; Start 08/31/20 at 21:45 Lorazepam (Ativan) 0.25 mg PRN Q6HRS PRN PO ANXIETY / AGITATION; Start 09/01/20 at 06:30 Benzonatate (Tessalon Perle) 100 mg PRN Q8HRS PRN PO COUGH Last administered on 09/01/20at 06:34; Start 09/01/20 at 06:30 Morphine Sulfate (Morphine Sulfate) 2 mg PRN Q2HR PRN IV PAIN Last administered on 09/01/20at 10:05; Start 09/01/20 at 06:30 Metoprolol Tartrate (Lopressor Vial) 5 mg 1X ONCE IVP ; Start 09/01/20 at 10:15; Stop 09/01/20 at 10:16; Status DC Acetaminophen (Tylenol Supp) 650 mg PRN Q6HRS PRN TX MILD PAIN / TEMP > 100.3'F; Start 09/01/20 at 10:15 Metoprolol Tartrate (Lopressor Vial) 5 mg PRN Q6HRS PRN IVP HYPERTENSION; Start 09/01/20 at 10:15 Furosemide (Lasix) 20 mg DAILY IVP Last administered on 09/01/20at 12:56; Start 09/01/20 at 10:30 Succinylcholine Chloride (Anectine) 200 mg STK-MED ONCE .ROUTE ; Start 09/01/20 at 10:27; Stop 09/01/20 at 10:28; Status DC Etomidate (Amidate) 20 mg STK-MED ONCE IV ; Start 09/01/20 at 10:28; Stop 09/01/20 at 10:28; Status DC Midazolam HCl (Versed) 5 mg STK-MED ONCE .ROUTE ; Start 09/01/20 at 10:34; Stop 09/01/20 at 10:35; Status DC Fentanyl Citrate 30 ml @ 0 mls/hr CONT PRN IV SEE PROTOCOL Last administered on 09/01/20at 11:13; Start 09/01/20 at 10:45; Stop 09/01/20 at 15:00; Status DC Midazolam HCl 100 ml @ 0 mls/hr CONT PRN IV SEE PROTOCOL Last administered on 09/01/20at 11:07; Start 09/01/20 at 10:45 Fentanyl Citrate 30 ml @ 0 mls/hr CONT PRN IV SEE PROTOCOL; Start 09/01/20 at 10:30; Status UNV Propofol 100 ml @ 0 mls/hr CONT PRN IV PER PROTOCOL Last administered on 09/01/20at 13:48; Start 09/01/20 at 10:30 Glycerin/ Hypromellose/ Polyethylene (Artificial Tears) 1 drop PRN Q1HR PRN OU DRY EYE; Start 09/01/20 at 10:30 Midazolam HCl 100 ml @ 0 mls/hr CONT PRN IV SEE PROTOCOL; Start 09/01/20 at 10:30; Status UNV Diphenhydramine HCl (Benadryl) 25 mg PRN Q15MIN PRN IVP EPS Symptoms; Start 09/01/20 at 10:30 Midazolam HCl (Versed) 5 mg 1X ONCE IV Last administered on 09/01/20at 11:07; Start 09/01/20 at 10:30; Stop 09/01/20 at 10:49; Status DC Etomidate (Amidate) 14 mg 1X ONCE IV Last administered on 09/01/20at 11:06; Start 09/01/20 at 11:00; Stop 09/01/20 at 11:02; Status DC Succinylcholine Chloride (Anectine) 120 mg 1X ONCE IV Last administered on 09/01/20at 11:03; Start 09/01/20 at 11:00; Stop 09/01/20 at 11:02; Status DC Vecuronium [place] (Norcuron Bolus) 10 mg STK-MED ONCE IV ; Start 09/01/20 at 11:09; Stop 09/01/20 at 11:09; Status DC Vecuronium [place] (Norcuron Bolus) 6 mg 1X ONCE IV Last administered on 09/01/20at 11:19; Start 09/01/20 at 11:15; Stop 09/01/20 at 11:17; Status DC Acetaminophen (Tylenol) 650 mg PRN Q6HRS PRN PEG MILD PAIN / TEMP > 100.3'F Last administered on 09/01/20at 14:58; Start 09/01/20 at 12:00 Vecuronium [place] (Norcuron Bolus) 6 mg PRN Q1HR PRN IV SEE ADMIN INSTRUCTIONS Last administered on 09/01/20at 15:08; Start 09/01/20 at 12:30 Furosemide (Lasix) 40 mg 1X ONCE IVP Last administered on 09/01/20at 13:00; Start 09/01/20 at 13:00; Stop 09/01/20 at 13:01; Status DC Dopamine HCl/ Dextrose 250 ml @ 26.063 mls/ hr CONT PRN IV SEE I/O RECORD; Start 09/01/20 at 13:00 Fentanyl Citrate 55 ml @ 0 mls/hr CONT PRN IV SEE PROTOCOL Last administered on 09/01/20at 14:59; Start 09/01/20 at 14:15 Doxycycline Hyclate 100 mg/ Dextrose 100 ml @ 50 mls/hr Q12HR IV ; Start 09/01/20 at 21:00 Ceftriaxone Sodium (Rocephin) 1 gm Q24H IVP Last administered on 09/01/20at 14:58; Start 09/01/20 at 15:00 Active Scripts Active Reported [cholecalcif] 25 Mcg PO DAILY Capsaicin 42.5 Gm Cream..g. 1 Chris TP QID [albuterol 90MCG] 2 Puff INH QID Robaxin-750 (Methocarbamol) 750 Mg Tablet 1 Tab PO BID 30 Days Indomethacin 50 Mg Capsule 1 Cap PO BID 10 Days with food Omeprazole 20 Mg Tablet.dr 20 Mg PO DAILY Gabapentin 600 Mg Tablet 600 Mg PO BID Crestor (Rosuvastatin Calcium) 40 Mg Tablet 20 Mg PO HS Singulair Tablet (Montelukast Sodium) 10 Mg Tablet 10 Mg PO HS Metformin Hcl 850 Mg Tablet 850 Mg PO BIDWMEALS Losartan Potassium 100 Mg Tablet 100 Mg PO DAILY Lasix (Furosemide) 20 Mg Tablet 20 Mg PO DAILY Refresh Optive Eye Drops (Carboxymethylcellulos/Glycerin) 15 Ml Drops 1 Drop EACHEYE BID PRN Prednisone 20 Mg Tablet 10 Mg PO DAILY Ropinirole Hcl 5 Mg Tablet 5 Mg PO QHS Pertinent Labs/Test Laboratory Tests Test 09/01/20 01:38 09/01/20 07:09 09/01/20 07:29 09/01/20 08:00 Troponin I Quantitative 0.024 ng/mL (0.000-0.055) White Blood Count 12.7 x10^3/uL (4.0-11.0) Red Blood Count 5.33 x10^6/uL (4.30-5.70) Hemoglobin 13.2 g/dL (13.0-17.5) Hematocrit 41.1 % (39.0-53.0) Mean Corpuscular Volume 77 fL (79-100) Mean Corpuscular Hemoglobin 25 pg (25-35) Mean Corpuscular Hemoglobin Concent 32 g/dL (31-37) Red Cell Distribution Width 15.2 % (11.5-14.5) Platelet Count 260 x10^3/uL (140-400) Neutrophils (%) (Auto) 92 % (31-73) Lymphocytes (%) (Auto) 5 % (24-48) Monocytes (%) (Auto) 1 % (0-9) Eosinophils (%) (Auto) 1 % (0-3) Basophils (%) (Auto) 1 % (0-3) Neutrophils # (Auto) 11.6 x10^3/uL (1.8-7.7) Lymphocytes # (Auto) 0.7 x10^3/uL (1.0-4.8) Monocytes # (Auto) 0.2 x10^3/uL (0.0-1.1) Eosinophils # (Auto) 0.1 x10^3/uL (0.0-0.7) Basophils # (Auto) 0.1 x10^3/uL (0.0-0.2) Segmented Neutrophils % 88 % (35-66) Band Neutrophils % 5 % (0-9) Lymphocytes % 4 % (24-48) Monocytes % 3 % (0-10) Platelet Estimate Adequate (ADEQUATE) Anisocytosis Slight Sodium Level 141 mmol/L (136-145) Potassium Level 4.3 mmol/L (3.5-5.1) Chloride Level 102 mmol/L (98-107) Carbon Dioxide Level 34 mmol/L (21-32) Anion Gap 5 (6-14) Blood Urea Nitrogen 23 mg/dL (8-26) Creatinine 1.2 mg/dL (0.7-1.3) Estimated GFR (Cockcroft-Gault) 62.2 BUN/Creatinine Ratio 19 (6-20) Glucose Level 193 mg/dL (70-99) Calcium Level 9.0 mg/dL (8.5-10.1) Phosphorus Level 3.5 mg/dL (2.6-4.7) Magnesium Level 2.8 mg/dL (1.8-2.4) Total Bilirubin 1.0 mg/dL (0.2-1.0) Aspartate Amino Transf (AST/SGOT) 53 U/L (15-37) Alanine Aminotransferase (ALT/SGPT) 39 U/L (16-63) Alkaline Phosphatase 273 U/L (46-116) Total Protein 6.7 g/dL (6.4-8.2) Albumin 2.3 g/dL (3.4-5.0) Albumin/Globulin Ratio 0.5 (1.0-1.7) Glucose (Fingerstick) 174 mg/dL (70-99) O2 Saturation 91 % (92-99) Arterial Blood pH 7.50 (7.35-7.45) Arterial Blood pH (Temp corrected) 7.46 Arterial Blood pCO2 at Patient Temp 36 mmHg (35-46) Arterial Blood pCO2 (Temp correct) 41 mmHg Arterial Blood pO2 at Patient Temp 59 mmHg (75-108) Arterial Blood pO2 (Temp corrected) 72 mmHg Arterial Blood HCO3 28 mmol/L (21-28) Arterial Blood Base Excess 5 mmol/L (-3-3) FiO2 100/bipap Test 09/01/20 12:25 O2 Saturation 90 % (92-99) Arterial Blood pH 7.28 (7.35-7.45) Arterial Blood pH (Temp corrected) 7.24 Arterial Blood pCO2 at Patient Temp 66 mmHg (35-46) Arterial Blood pCO2 (Temp correct) 74 mmHg Arterial Blood pO2 at Patient Temp 70 mmHg (75-108) Arterial Blood pO2 (Temp corrected) 83 mmHg Arterial Blood HCO3 30 mmol/L (21-28) Arterial Blood Base Excess 2 mmol/L (-3-3) Oxyhemoglobin 89.6 % Methemoglobin 0.4 % (0.0-1.9) Carbon Monoxide, Quantitative 0.5 % (0.0-1.9) FiO2 100% + 14 peep Laboratory Tests Test 09/01/20 01:38 09/01/20 07:09 09/01/20 07:29 09/01/20 08:00 Troponin I Quantitative 0.024 ng/mL (0.000-0.055) White Blood Count 12.7 x10^3/uL (4.0-11.0) Red Blood Count 5.33 x10^6/uL (4.30-5.70) Hemoglobin 13.2 g/dL (13.0-17.5) Hematocrit 41.1 % (39.0-53.0) Mean Corpuscular Volume 77 fL (79-100) Mean Corpuscular Hemoglobin 25 pg (25-35) Mean Corpuscular Hemoglobin Concent 32 g/dL (31-37) Red Cell Distribution Width 15.2 % (11.5-14.5) Platelet Count 260 x10^3/uL (140-400) Neutrophils (%) (Auto) 92 % (31-73) Lymphocytes (%) (Auto) 5 % (24-48) Monocytes (%) (Auto) 1 % (0-9) Eosinophils (%) (Auto) 1 % (0-3) Basophils (%) (Auto) 1 % (0-3) Neutrophils # (Auto) 11.6 x10^3/uL (1.8-7.7) Lymphocytes # (Auto) 0.7 x10^3/uL (1.0-4.8) Monocytes # (Auto) 0.2 x10^3/uL (0.0-1.1) Eosinophils # (Auto) 0.1 x10^3/uL (0.0-0.7) Basophils # (Auto) 0.1 x10^3/uL (0.0-0.2) Segmented Neutrophils % 88 % (35-66) Band Neutrophils % 5 % (0-9) Lymphocytes % 4 % (24-48) Monocytes % 3 % (0-10) Platelet Estimate Adequate (ADEQUATE) Anisocytosis Slight Sodium Level 141 mmol/L (136-145) Potassium Level 4.3 mmol/L (3.5-5.1) Chloride Level 102 mmol/L (98-107) Carbon Dioxide Level 34 mmol/L (21-32) Anion Gap 5 (6-14) Blood Urea Nitrogen 23 mg/dL (8-26) Creatinine 1.2 mg/dL (0.7-1.3) Estimated GFR (Cockcroft-Gault) 62.2 BUN/Creatinine Ratio 19 (6-20) Glucose Level 193 mg/dL (70-99) Calcium Level 9.0 mg/dL (8.5-10.1) Phosphorus Level 3.5 mg/dL (2.6-4.7) Magnesium Level 2.8 mg/dL (1.8-2.4) Total Bilirubin 1.0 mg/dL (0.2-1.0) Aspartate Amino Transf (AST/SGOT) 53 U/L (15-37) Alanine Aminotransferase (ALT/SGPT) 39 U/L (16-63) Alkaline Phosphatase 273 U/L (46-116) Total Protein 6.7 g/dL (6.4-8.2) Albumin 2.3 g/dL (3.4-5.0) Albumin/Globulin Ratio 0.5 (1.0-1.7) Glucose (Fingerstick) 174 mg/dL (70-99) O2 Saturation 91 % (92-99) Arterial Blood pH 7.50 (7.35-7.45) Arterial Blood pH (Temp corrected) 7.46 Arterial Blood pCO2 at Patient Temp 36 mmHg (35-46) Arterial Blood pCO2 (Temp correct) 41 mmHg Arterial Blood pO2 at Patient Temp 59 mmHg (75-108) Arterial Blood pO2 (Temp corrected) 72 mmHg Arterial Blood HCO3 28 mmol/L (21-28) Arterial Blood Base Excess 5 mmol/L (-3-3) FiO2 100/bipap Test 09/01/20 12:25 O2 Saturation 90 % (92-99) Arterial Blood pH 7.28 (7.35-7.45) Arterial Blood pH (Temp corrected) 7.24 Arterial Blood pCO2 at Patient Temp 66 mmHg (35-46) Arterial Blood pCO2 (Temp correct) 74 mmHg Arterial Blood pO2 at Patient Temp 70 mmHg (75-108) Arterial Blood pO2 (Temp corrected) 83 mmHg Arterial Blood HCO3 30 mmol/L (21-28) Arterial Blood Base Excess 2 mmol/L (-3-3) Oxyhemoglobin 89.6 % Methemoglobin 0.4 % (0.0-1.9) Carbon Monoxide, Quantitative 0.5 % (0.0-1.9) FiO2 100% + 14 peep LAST VITALS Vital Signs Date Time Temp Pulse Resp B/P (MAP) Pulse Ox O2 Delivery O2 Flow Rate FiO2 09/01/20 14:00 100 28 120/52 (74) 88 Ventilator 09/01/20 12:00 103.0 103.0 09/01/20 09:00 40.0 MAIA DE LA FUENTE MD Sep 01, 2020 15:17
--- NOTE | 2020-09-01 15:26 | NUR ---
Prior to intubation, patient gave verbal consent for a central line insertion. Patient also explicitly stated he does not want to be resuscitated, no chest compressions, medications, or defibrillation, furthermore does not want dialysis. Patient was intubated by FUNDRAISING DIRECTOR, ventilator settings AC 20, TV 550, PEEP 10 & 100% FIO2. Patient's updated via telephone, aware of code status and patient's wishes. Repeat ABG drawn, results given to ANA Morales. CXR taken to verify tube placement around 1230, and around 1232, patient's oxygen began to drop. When patient's SPO2 decreased to 55%, RT began to use the BVM with PEEP valve attached, multiple RNs and ANA Morales at bedside. Patient's notified of change. Patient was bagged for 14 minutes before SPO2 improved, reattached to ventilator with changed ventilator settings of AC 28, TV 600, PEEP 15, 100% with a 1:1 I:E ratio. ETT also advanced to 24 at the lip per Dr. Espinal. Patient's able to come to bedside for short bit of time, patient's took patient's wedding ring, cell phone, cell phone gas charger, wallet, glasses, and bluetooth speaker, left patient's clothes.
[2020-09-01 15:29] LABS: BASE EXCESS ABG 1 mmol/L (-3-3); HCO3 ABG 28 mmol/L (21-28); PCO2 ABG 59 mmHg (35-46); PO2 ABG 76 mmHg (75-108); SAT O2 ABG 93 % (92-99)
[2020-09-01 15:35] LABS: FIO2 ABG 100% +15 PEEP
--- NOTE | 2020-09-01 15:52 | NUR ---
SS following for discharge planning. SS reviewed pt chart and discussed with pt RN. Pt is from home with spouse and transferred from the [facility]. Pt was intubated today and is currently on the vent at 100%. COVID19 positive. Pt on IV Doxycycline and IV Rocephin. Not stable. SS will continue to follow for discharge planning.
[2020-09-01] MEDS: DOXYCYCLINE HYCLATE 100 MG in IV DEXTROSE 5% 100ML 100 ML IV SCH (21:24)
[2020-09-01] MEDS: ATORVASTATIN CALCIUM 40 MG TABLET. PO SCH (21:25)
[2020-09-02] VITALS (24 sets, daily range): BP systolic 86–190; BP diastolic 46–82
[2020-09-02] MEDS: PROPOFOL 100 ML IV PRN ×4 (02:43→23:50)
[2020-09-02] MEDS: VECURONIUM BOLUS 10 MG VIAL. IV PRN ×2 (05:03→12:03)
[2020-09-02] MEDS: MIDAZOLAM 100mg/100ml NS BAG 100 ML IV PRN ×3 (05:08→23:42)
[2020-09-02] MEDS: INSULIN LISPRO 300 UNITS/3 ML VIAL. SQ SCH ×3 (06:00→17:42)
[2020-09-02] MEDS: THIAMINE INJ 100 MG in IV DEXTROSE 5% 50 ML IV SCH ×3 (06:33→22:02)
--- NOTE | 2020-09-02 08:04 | PDOC ---
PROGRESS NOTES Date of Service: DATE: 09/02/20 TIME: 08:04 Chief Complaint Chief Complaint Images: Images Negative CT of the chest done Sunday at the [facility] Pending chest x-ray Assessment/Plan Assessment/Plan Acute hypoxic respiratory failure due to COVID-19 infection requiring BiPAP support Diabetes mellitus Morbid obesity MARGARITO on CPAP, now intubated 12 Admit to ICU for close respiratory monitoring Pulmonology consult vent at 100% and PEEP of 15 Continue IV dexamethasone 6 mg daily Lovenox twice daily for DVT prophylaxis Protonix while on steroids GI prophylaxis ADA diet Full code Discussed with RN and SW Disposition inpatient management as above Surrogate decision maker is the 37 minutes of critical care time Justifications for Admission Justifications for Admission Other Justification Acute respiratory failure due to COVID History of Present Illness History of Present Illness Chief Complaint: Chief Complain: COVID pneumonia History of Present Illness: HPI: History obtained from patient and transferring physician Dr. Ramos from the [facility] Patient is a 60-year-old male with past medical history of insulin dependent diabetes mellitus, morbid obesity, MARGARITO who was transferred due to acute respiratory failure due to COVID-19 infection. Patient was tested positive for Covid on 08/25/2020 patient was treated with IV remdesivir and Decadron he did finish 5 days of IV antibiotics and has still continued to be fever with a T-max of 101 F. He was tested for procalcitonin and it was been negative x2. Patient was initially placed on nasal cannula at and transition to Vapotherm and he needed to go up on his requirements to 40 L and he has been on BiPAP now 100% FiO2 for the past 2 days. Patient's D-dimer was also elevated and a chest CTA was ordered which was negative, this was done on Sunday. The reason for the transfer is to have a pulmonology specialist to oversee their care. [facility] physician has attempted to transfer to [facility] but the beds are full at this time. Currently the patient denies any respiratory distress he is currently saturating 100% on FiO2 of 100% BiPAP in the ICU. Currently denies fevers, chest pain, abdominal pain, diarrhea, dysuria, or hemoptysis. Past Medical/Surgical History: PMH/PSH: DM insulin dependent, CAD, HTN MARGARITO- compliant with CPAP Morbid Obesity Hx of LBBB Allergies: Allergies: Coded Allergies: flunisolide (Verified Adverse Reaction, Mild, insufficient response, 1 11/01/19) lisinopril (Verified Adverse Reaction, Mild, cough, 08/31/20) Family History: Family History: Reviewed with no relevant findings Social History: Social History: Denies alcohol, tobacco, drug abuse Current Medications: Current Medications Vitals Vitals Vital Signs Date Time Temp Pulse Resp B/P (MAP) Pulse Ox O2 Delivery O2 Flow Rate FiO2 09/02/20 07:43 96 Ventilator 09/02/20 06:00 78 28 162/82 (108) 09/02/20 04:00 99.0 99.0 09/01/20 09:00 40.0 Physical Exam Physical Exam Physcial Exam: GEN: No apparent distress. sedated on vent HEENT: Normal cephalic, atraumatic, external auditory canals are patent EYES: Extraocular muscles are intact, pupil are equally round and reactive to light and accommodation MUSCULOSKELETAL: Well developed , well nourished, good range of motion ENDOCRINE: No thyromegaly was palpated LYMPHATICS: No cervical chain or axillary nodes were noted HEMATOPOIETIC: No bruising NECK: Supple, no JVD, no thyromegaly was noted LUNGS: Clear to auscultation in all lung snyder without rhonchi or wheezing HEART: RRR, S!, S2 present. Peripheral pulses intact, no obvious murmurs noted ABDOMEN: Soft, nontender. Positive bowel sounds, no organomegaly, normal bowel sounds EXTREMITIES: Without clubbing, cyanosis, or edema. Pedal pulses intact. N egative Homans sign NEUROLOGIC: no obvious focal deficits SKIN: No ulcerations or rashes, good skin turgor, no jaundice VASCULAR: Good capillary refill, neurovascular bundle appears to be intact General: Cooperative Extremities: No cyanosis Labs LABS Laboratory Tests Test 09/01/20 12:25 09/01/20 15:20 09/01/20 23:31 09/02/20 06:23 O2 Saturation 90 % (92-99) 93 % (92-99) Arterial Blood pH 7.28 (7.35-7.45) 7.30 (7.35-7.45) Arterial Blood pH (Temp corrected) 7.24 Arterial Blood pCO2 at Patient Temp 66 mmHg (35-46) 59 mmHg (35-46) Arterial Blood pCO2 (Temp correct) 74 mmHg Arterial Blood pO2 at Patient Temp 70 mmHg (75-108) 76 mmHg (75-108) Arterial Blood pO2 (Temp corrected) 83 mmHg Arterial Blood HCO3 30 mmol/L (21-28) 28 mmol/L (21-28) Arterial Blood Base Excess 2 mmol/L (-3-3) 1 mmol/L (-3-3) Oxyhemoglobin 89.6 % Methemoglobin 0.4 % (0.0-1.9) Carbon Monoxide, Quantitative 0.5 % (0.0-1.9) FiO2 100% + 14 peep 100% +15 peep Glucose (Fingerstick) 273 mg/dL (70-99) 170 mg/dL (70-99) Comment Review of Relevant I have reviewed the following items lexa (where applicable) has been applied. Labs Laboratory Tests Test 09/01/20 01:38 09/01/20 07:09 09/01/20 07:29 09/01/20 08:00 Troponin I Quantitative 0.024 ng/mL (0.000-0.055) White Blood Count 12.7 x10^3/uL (4.0-11.0) Red Blood Count 5.33 x10^6/uL (4.30-5.70) Hemoglobin 13.2 g/dL (13.0-17.5) Hematocrit 41.1 % (39.0-53.0) Mean Corpuscular Volume 77 fL (79-100) Mean Corpuscular Hemoglobin 25 pg (25-35) Mean Corpuscular Hemoglobin Concent 32 g/dL (31-37) Red Cell Distribution Width 15.2 % (11.5-14.5) Platelet Count 260 x10^3/uL (140-400) Neutrophils (%) (Auto) 92 % (31-73) Lymphocytes (%) (Auto) 5 % (24-48) Monocytes (%) (Auto) 1 % (0-9) Eosinophils (%) (Auto) 1 % (0-3) Basophils (%) (Auto) 1 % (0-3) Neutrophils # (Auto) 11.6 x10^3/uL (1.8-7.7) Lymphocytes # (Auto) 0.7 x10^3/uL (1.0-4.8) Monocytes # (Auto) 0.2 x10^3/uL (0.0-1.1) Eosinophils # (Auto) 0.1 x10^3/uL (0.0-0.7) Basophils # (Auto) 0.1 x10^3/uL (0.0-0.2) Segmented Neutrophils % 88 % (35-66) Band Neutrophils % 5 % (0-9) Lymphocytes % 4 % (24-48) Monocytes % 3 % (0-10) Platelet Estimate Adequate (ADEQUATE) Anisocytosis Slight Sodium Level 141 mmol/L (136-145) Potassium Level 4.3 mmol/L (3.5-5.1) Chloride Level 102 mmol/L (98-107) Carbon Dioxide Level 34 mmol/L (21-32) Anion Gap 5 (6-14) Blood Urea Nitrogen 23 mg/dL (8-26) Creatinine 1.2 mg/dL (0.7-1.3) Estimated GFR (Cockcroft-Gault) 62.2 BUN/Creatinine Ratio 19 (6-20) Glucose Level 193 mg/dL (70-99) Calcium Level 9.0 mg/dL (8.5-10.1) Phosphorus Level 3.5 mg/dL (2.6-4.7) Magnesium Level 2.8 mg/dL (1.8-2.4) Total Bilirubin 1.0 mg/dL (0.2-1.0) Aspartate Amino Transf (AST/SGOT) 53 U/L (15-37) Alanine Aminotransferase (ALT/SGPT) 39 U/L (16-63) Alkaline Phosphatase 273 U/L (46-116) Total Protein 6.7 g/dL (6.4-8.2) Albumin 2.3 g/dL (3.4-5.0) Albumin/Globulin Ratio 0.5 (1.0-1.7) Glucose (Fingerstick) 174 mg/dL (70-99) O2 Saturation 91 % (92-99) Arterial Blood pH 7.50 (7.35-7.45) Arterial Blood pH (Temp corrected) 7.46 Arterial Blood pCO2 at Patient Temp 36 mmHg (35-46) Arterial Blood pCO2 (Temp correct) 41 mmHg Arterial Blood pO2 at Patient Temp 59 mmHg (75-108) Arterial Blood pO2 (Temp corrected) 72 mmHg Arterial Blood HCO3 28 mmol/L (21-28) Arterial Blood Base Excess 5 mmol/L (-3-3) FiO2 100/bipap Test 09/01/20 12:25 09/01/20 15:20 09/01/20 23:31 09/02/20 06:23 O2 Saturation 90 % (92-99) 93 % (92-99) Arterial Blood pH 7.28 (7.35-7.45) 7.30 (7.35-7.45) Arterial Blood pH (Temp corrected) 7.24 Arterial Blood pCO2 at Patient Temp 66 mmHg (35-46) 59 mmHg (35-46) Arterial Blood pCO2 (Temp correct) 74 mmHg Arterial Blood pO2 at Patient Temp 70 mmHg (75-108) 76 mmHg (75-108) Arterial Blood pO2 (Temp corrected) 83 mmHg Arterial Blood HCO3 30 mmol/L (21-28) 28 mmol/L (21-28) Arterial Blood Base Excess 2 mmol/L (-3-3) 1 mmol/L (-3-3) Oxyhemoglobin 89.6 % Methemoglobin 0.4 % (0.0-1.9) Carbon Monoxide, Quantitative 0.5 % (0.0-1.9) FiO2 100% + 14 peep 100% +15 peep Glucose (Fingerstick) 273 mg/dL (70-99) 170 mg/dL (70-99) Laboratory Tests Test 09/01/20 12:25 09/01/20 15:20 09/01/20 23:31 09/02/20 06:23 O2 Saturation 90 % (92-99) 93 % (92-99) Arterial Blood pH 7.28 (7.35-7.45) 7.30 (7.35-7.45) Arterial Blood pH (Temp corrected) 7.24 Arterial Blood pCO2 at Patient Temp 66 mmHg (35-46) 59 mmHg (35-46) Arterial Blood pCO2 (Temp correct) 74 mmHg Arterial Blood pO2 at Patient Temp 70 mmHg (75-108) 76 mmHg (75-108) Arterial Blood pO2 (Temp corrected) 83 mmHg Arterial Blood HCO3 30 mmol/L (21-28) 28 mmol/L (21-28) Arterial Blood Base Excess 2 mmol/L (-3-3) 1 mmol/L (-3-3) Oxyhemoglobin 89.6 % Methemoglobin 0.4 % (0.0-1.9) Carbon Monoxide, Quantitative 0.5 % (0.0-1.9) FiO2 100% + 14 peep 100% +15 peep Glucose (Fingerstick) 273 mg/dL (70-99) 170 mg/dL (70-99) Medications Current Medications Sennosides (Senna) 17.2 mg PRN BID PRN PO CONSTIPATION; Start 08/31/20 at 18:15 Docusate Sodium (Colace) 100 mg PRN DAILY PRN PO HARD STOOLS; Start 08/31/20 at 18:15 Ondansetron HCl (Zofran) 4 mg PRN Q6HRS PRN IVP NAUSEA/VOMITING; Start 1 11/01/19 at 18:15 Insulin Human Lispro (HumaLOG) 0-9 UNITS TIDWMEALS SQ ; Start 09/01/20 at 08:00; Stop 09/01/20 at 17:13; Status DC Dextrose (Dextrose 50%-Water Syringe) 12.5 gm PRN Q15MIN PRN IV SEE COMMENTS; Start 08/31/20 at 18:15 Enoxaparin Sodium (Lovenox 40mg Syringe) 40 mg Q24H SQ ; Start 08/31/20 at 21:00; Stop 08/31/20 at 18:36; Status DC Pantoprazole Sodium (PROTONIX VIAL for IV PUSH) 40 mg DAILYAC IVP Last administered on 09/01/20at 08:17; Start 09/01/20 at 07:30 Enoxaparin Sodium (Lovenox 40mg Syringe) 40 mg BID SQ Last administered on 09/01/20at 21:25; Start 08/31/20 at 21:00 Dexamethasone Sodium Phosphate (Decadron) 6 mg DAILY IVP Last administered on 09/01/20at 08:32; Start 09/01/20 at 09:00 Ascorbic Acid (Vitamin C) 3,000 mg TID PO Last administered on 09/01/20at 21:25; Start 08/31/20 at 21:00 Thiamine HCl 100 mg/Dextrose 51 ml @ 102 mls/hr Q8HRS IV Last administered on 09/02/20at 06:33; Start 08/31/20 at 22:00 Insulin Glargine (Lantus Syringe) 40 unit DAILY SQ ; Start 09/01/20 at 09:00 Furosemide (Lasix) 20 mg DAILY PO ; Start 09/01/20 at 09:00; Stop 09/01/20 at 10:06; Status DC Metformin HCl (Glucophage) 850 mg BIDWMEALS PO ; Start 09/01/20 at 08:00; Stop 09/01/20 at 17:13; Status DC Methocarbamol (Robaxin) 750 mg BID PO Last administered on 08/31/20at 21:01; Start 08/31/20 at 21:00; Stop 09/01/20 at 17:13; Status DC Montelukast Sodium (Singulair) 10 mg HS PO Last administered on 08/31/20at 20:05; Start 08/31/20 at 21:00; Stop 09/01/20 at 17:13; Status DC Capsaicin (Zostrix) 1 chris QID TP Last administered on 08/31/20at 21:02; Start 08/31/20 at 21:00; Stop 09/01/20 at 17:13; Status DC Glycerin/ Hypromellose/ Polyethylene (Artificial Tears) 1 drop PRN BID PRN OU DRY EYE; Start 08/31/20 at 19:45; Stop 09/01/20 at 10:49; Status DC Gabapentin (Neurontin) 600 mg BID PO Last administered on 09/01/20at 21:25; Start 08/31/20 at 21:00 Indomethacin (Indocin) 50 mg BIDWMEALS PO Last administered on 08/31/20at 21:02; Start 08/31/20 at 21:00; Stop 09/01/20 at 17:13; Status DC Losartan Potassium (Cozaar) 100 mg DAILY PO ; Start 09/01/20 at 09:00; Stop 09/01/20 at 10:06; Status DC Non-Formulary Medication (Omeprazole ) 20 mg DAILY PO ; Start 09/01/20 at 09:00; Status UNV Ropinirole HCl (Requip) 5 mg QHS PO Last administered on 08/31/20at 20:06; Start 08/31/20 at 21:00; Stop 09/01/20 at 17:13; Status DC Atorvastatin Calcium (Lipitor) 80 mg QHS PO Last administered on 09/01/20at 21:25; Start 08/31/20 at 21:00 Vitamin D (Vitamin D3) 1,000 unit DAILY PO ; Start 09/01/20 at 09:00 Labetalol HCl (Normodyne Iv Push) 10 mg TID PRN PRN IVP HYPERTENSION Last administered on 09/01/20at 08:23; Start 08/31/20 at 21:45 Lorazepam (Ativan) 0.25 mg PRN Q6HRS PRN PO ANXIETY / AGITATION; Start 09/01/20 at 06:30 Benzonatate (Tessalon Perle) 100 mg PRN Q8HRS PRN PO COUGH Last administered on 09/01/20at 06:34; Start 09/01/20 at 06:30 Morphine Sulfate (Morphine Sulfate) 2 mg PRN Q2HR PRN IV PAIN Last administered on 09/01/20at 10:05; Start 09/01/20 at 06:30 Metoprolol Tartrate (Lopressor Vial) 5 mg 1X ONCE IVP ; Start 09/01/20 at 10:15; Stop 09/01/20 at 10:16; Status DC Acetaminophen (Tylenol Supp) 650 mg PRN Q6HRS PRN ME MILD PAIN / TEMP > 100.3'F; Start 09/01/20 at 10:15 Metoprolol Tartrate (Lopressor Vial) 5 mg PRN Q6HRS PRN IVP HYPERTENSION; Start 09/01/20 at 10:15 Furosemide (Lasix) 20 mg DAILY IVP Last administered on 09/01/20at 12:56; Start 09/01/20 at 10:30 Succinylcholine Chloride (Anectine) 200 mg STK-MED ONCE .ROUTE ; Start 09/01/20 at 10:27; Stop 09/01/20 at 10:28; Status DC Etomidate (Amidate) 20 mg STK-MED ONCE IV ; Start 09/01/20 at 10:28; Stop 09/01/20 at 10:28; Status DC Midazolam HCl (Versed) 5 mg STK-MED ONCE .ROUTE ; Start 09/01/20 at 10:34; Stop 09/01/20 at 10:35; Status DC Fentanyl Citrate 30 ml @ 0 mls/hr CONT PRN IV SEE PROTOCOL Last administered on 09/01/20at 11:13; Start 09/01/20 at 10:45; Stop 09/01/20 at 15:00; Status DC Midazolam HCl 100 ml @ 0 mls/hr CONT PRN IV SEE PROTOCOL Last administered on 09/02/20at 05:08; Start 09/01/20 at 10:45 Fentanyl Citrate 30 ml @ 0 mls/hr CONT PRN IV SEE PROTOCOL; Start 09/01/20 at 10:30; Status UNV Propofol 100 ml @ 0 mls/hr CONT PRN IV PER PROTOCOL Last administered on 09/02/20at 02:43; Start 09/01/20 at 10:30 Glycerin/ Hypromellose/ Polyethylene (Artificial Tears) 1 drop PRN Q1HR PRN OU DRY EYE; Start 09/01/20 at 10:30 Midazolam HCl 100 ml @ 0 mls/hr CONT PRN IV SEE PROTOCOL; Start 09/01/20 at 10:30; Status UNV Diphenhydramine HCl (Benadryl) 25 mg PRN Q15MIN PRN IVP EPS Symptoms; Start 09/01/20 at 10:30 Midazolam HCl (Versed) 5 mg 1X ONCE IV Last administered on 09/01/20at 11:07; Start 09/01/20 at 10:30; Stop 09/01/20 at 10:49; Status DC Etomidate (Amidate) 14 mg 1X ONCE IV Last administered on 09/01/20at 11:06; Start 09/01/20 at 11:00; Stop 09/01/20 at 11:02; Status DC Succinylcholine Chloride (Anectine) 120 mg 1X ONCE IV Last administered on 09/01/20at 11:03; Start 09/01/20 at 11:00; Stop 09/01/20 at 11:02; Status DC Vecuronium Candor (Norcuron Bolus) 10 mg STK-MED ONCE IV ; Start 09/01/20 at 11:09; Stop 09/01/20 at 11:09; Status DC Vecuronium Candor (Norcuron Bolus) 6 mg 1X ONCE IV Last administered on 09/01/20at 11:19; Start 09/01/20 at 11:15; Stop 09/01/20 at 11:17; Status DC Acetaminophen (Tylenol) 650 mg PRN Q6HRS PRN PEG MILD PAIN / TEMP > 100.3'F Last administered on 09/01/20at 14:58; Start 09/01/20 at 12:00 Vecuronium Candor (Norcuron Bolus) 6 mg PRN Q1HR PRN IV SEE ADMIN INSTRUCTIONS Last administered on 09/02/20at 05:03; Start 09/01/20 at 12:30 Furosemide (Lasix) 40 mg 1X ONCE IVP Last administered on 09/01/20at 13:00; Start 09/01/20 at 13:00; Stop 09/01/20 at 13:01; Status DC Dopamine HCl/ Dextrose 250 ml @ 26.063 mls/ hr CONT PRN IV SEE I/O RECORD; Start 09/01/20 at 13:00 Fentanyl Citrate 55 ml @ 0 mls/hr CONT PRN IV SEE PROTOCOL Last administered on 09/01/20at 14:59; Start 09/01/20 at 14:15 Doxycycline Hyclate 100 mg/ Dextrose 100 ml @ 50 mls/hr Q12HR IV Last administered on 09/01/20at 21:24; Start 09/01/20 at 21:00 Ceftriaxone Sodium (Rocephin) 1 gm Q24H IVP Last administered on 09/01/20at 14:58; Start 09/01/20 at 15:00 Insulin Human Lispro (HumaLOG) 0-9 UNITS Q6HRS SQ Last administered on 09/01/20at 23:59; Start 09/01/20 at 18:00 Active Scripts Active Reported [cholecalcif] 25 Mcg PO DAILY Capsaicin 42.5 Gm Cream..g. 1 Chris TP QID [albuterol 90MCG] 2 Puff INH QID Robaxin-750 (Methocarbamol) 750 Mg Tablet 1 Tab PO BID 30 Days Indomethacin 50 Mg Capsule 1 Cap PO BID 10 Days with food Omeprazole 20 Mg Tablet.dr 20 Mg PO DAILY Gabapentin 600 Mg Tablet 600 Mg PO BID Crestor (Rosuvastatin Calcium) 40 Mg Tablet 20 Mg PO HS Singulair Tablet (Montelukast Sodium) 10 Mg Tablet 10 Mg PO HS Metformin Hcl 850 Mg Tablet 850 Mg PO BIDWMEALS Losartan Potassium 100 Mg Tablet 100 Mg PO DAILY Lasix (Furosemide) 20 Mg Tablet 20 Mg PO DAILY Refresh Optive Eye Drops (Carboxymethylcellulos/Glycerin) 15 Ml Drops 1 Drop EACHEYE BID PRN Prednisone 20 Mg Tablet 10 Mg PO DAILY Ropinirole Hcl 5 Mg Tablet 5 Mg PO QHS Vitals/I & O Vital Sign - Last 24 Hours 12/30/20 12/30/20 12/30/20 12/30/20 08:08 08:23 09:00 10:00 Pulse 94 94 110 Resp 39 41 B/P (MAP) 198/78 195/83 (120) 161/73 (102) Pulse Ox 82 95 86 O2 Delivery AVAPS AVAPS O2 Flow Rate 40.0 09/01/20 09/01/20 09/01/20 09/01/20 10:05 10:35 10:50 11:00 Temp 102.8 102.8 Pulse 102 Resp 32 25 B/P (MAP) 105/87 (93) Pulse Ox 82 88 82 O2 Delivery BiPAP/CPAP Ventilator AVAPS 09/01/20 09/01/20 09/01/20 09/01/20 11:13 11:21 12:00 12:00 Temp 103.0 103.0 Pulse 111 Resp 24 24 B/P (MAP) 164/78 (106) Pulse Ox 90 89 O2 Delivery Ventilator Mechanical Ventilator Ventilator 09/01/20 09/01/20 09/01/20 09/01/20 12:15 12:30 12:45 13:00 Pulse 108 100 74 102 Resp 24 24 28 B/P (MAP) 173/74 (107) 110/70 (83) 80/40 (53) Pulse Ox 89 82 25 85 O2 Delivery Ventilator Ventilator Bag Valve Mask Ventilator 09/01/20 09/01/20 09/01/20 09/01/20 13:15 13:30 13:45 14:00 Pulse 106 106 100 100 Resp 28 28 B/P (MAP) 136/67 (90) 148/80 (102) 114/76 (89) 120/52 (74) Pulse Ox 90 89 86 88 O2 Delivery Ventilator Ventilator Ventilator Ventilator 09/01/20 09/01/20 09/01/20 09/01/20 15:00 15:20 16:00 16:00 Temp 100.3 99.1 100.3 99.1 Pulse 93 93 Resp 28 B/P (MAP) 114/59 (77) 117/57 (77) Pulse Ox 91 91 91 O2 Delivery Ventilator Ventilator Ventilator Mechanical Ventilator 09/01/20 09/01/20 09/01/20 09/01/20 17:00 18:00 19:00 20:00 Temp 98.2 98.2 Pulse 81 79 72 72 Resp 28 28 28 28 B/P (MAP) 123/57 (79) 106/50 (68) 104/51 (68) 101/47 (65) Pulse Ox 93 94 94 92 O2 Delivery Ventilator Ventilator Ventilator Ventilator 09/01/20 09/01/20 09/01/20 09/01/20 20:00 20:32 21:00 22:00 Pulse 70 72 Resp 28 28 B/P (MAP) 106/53 (70) 107/50 (69) Pulse Ox 92 93 93 O2 Delivery Mechanical Ventilator Ventilator Ventilator Ventilator 09/01/20 09/01/20 09/02/20 09/02/20 23:00 23:53 00:00 00:00 Temp 98.3 98.3 Pulse 70 77 Resp 28 28 B/P (MAP) 121/59 (79) 149/72 (97) Pulse Ox 92 93 91 O2 Delivery Ventilator Ventilator Ventilator Mechanical Ventilator 09/02/20 09/02/20 09/02/20 09/02/20 01:00 02:00 03:00 04:00 Temp 99.0 99.0 Pulse 67 68 71 72 Resp 28 28 28 28 B/P (MAP) 132/64 (86) 129/69 (89) 164/72 (102) 157/78 (104) Pulse Ox 93 93 97 97 O2 Delivery Ventilator Ventilator Ventilator Ventilator 09/02/20 09/02/20 09/02/20 09/02/20 04:00 04:18 05:00 06:00 Pulse 74 78 Resp 28 28 B/P (MAP) 138/53 (81) 162/82 (108) Pulse Ox 96 87 92 O2 Delivery Mechanical Ventilator Ventilator Ventilator Ventilator 09/02/20 07:43 Pulse Ox 96 O2 Delivery Ventilator Intake and Output 09/01/20 09/01/20 09/02/20 15:00 23:00 07:00 Intake Total 431 ml 214 ml 280.59 ml Output Total 825 ml 700 ml 525 ml Balance -394 ml -486 ml -244.41 ml Justicifation of Admission Dx: Justifications for Admission: Justification of Admission Dx: Yes Comminuty Aquired Pneumonia: Hypoxemia Chronic Renal Failure: Encephalopathy Sepsis: Hypoxemia LUIS TRIPLETT MD Sep 02, 2020 08:04
[2020-09-02] MEDS: ENOXAPARIN 40 MG/0.4 ML SYRINGE. SQ SCH ×2 (08:05→21:01)
[2020-09-02] MEDS: PANTOPRAZOLE IV PUSH 40 MG VIAL. IVP SCH (08:06)
[2020-09-02] MEDS: LABETALOL 20 MG/4 ML DISP.SYRIN. IVP PRN (08:06)
[2020-09-02] MEDS: CHOLECALCIFEROL (VITAMIN D3) 1,000 UNIT TABLET PO SCH (08:07)
[2020-09-02] MEDS: ASCORBIC ACID 1,000 MG TABLET PO SCH ×3 (08:07→21:01)
[2020-09-02] MEDS: GABAPENTIN 300 MG CAPSULE. PO SCH ×2 (08:07→21:01)
[2020-09-02] MEDS: DEXAMETHASONE SOD PHOS 4 MG/ML VIAL IVP SCH (08:07)
[2020-09-02 08:39] LABS: BASE EXCESS ABG 5 mmol/L (-3-3); HCO3 ABG 31 mmol/L (21-28); PCO2 ABG 54 mmHg (35-46); PO2 ABG 57 mmHg (75-108); SAT O2 ABG 89 % (92-99)
[2020-09-02 08:42] LABS: FIO2 ABG 100/VENT
[2020-09-02] MEDS: INSULIN GLARGINE SYRINGE. SQ SCH (09:00)
[2020-09-02] MEDS: DOXYCYCLINE HYCLATE 100 MG in IV DEXTROSE 5% 100ML 100 ML IV SCH ×2 (09:46→21:02)
--- NOTE | 2020-09-02 10:03 | PDOC ---
PULMONARY PROGRESS NOTES DATE: 09/02/20 TIME: 09:58 Subjective intubated 09/01 now on vent at 100% and PEEP of 15 febrile overnight Vitals Vital Signs Date Time Temp Pulse Resp B/P (MAP) Pulse Ox O2 Delivery O2 Flow Rate FiO2 09/02/20 09:00 84 28 147/68 (94) 95 Ventilator 09/02/20 08:00 100.3 100.3 09/01/20 09:00 40.0 Comments pt. seen during - pandemic, visual exam preformed VENT RRR obese no accessory muscle use no rash/edema Labs Laboratory Tests Test 09/01/20 01:38 09/01/20 07:09 09/01/20 07:29 09/01/20 08:00 Troponin I Quantitative 0.024 ng/mL (0.000-0.055) White Blood Count 12.7 x10^3/uL (4.0-11.0) Red Blood Count 5.33 x10^6/uL (4.30-5.70) Hemoglobin 13.2 g/dL (13.0-17.5) Hematocrit 41.1 % (39.0-53.0) Mean Corpuscular Volume 77 fL (79-100) Mean Corpuscular Hemoglobin 25 pg (25-35) Mean Corpuscular Hemoglobin Concent 32 g/dL (31-37) Red Cell Distribution Width 15.2 % (11.5-14.5) Platelet Count 260 x10^3/uL (140-400) Neutrophils (%) (Auto) 92 % (31-73) Lymphocytes (%) (Auto) 5 % (24-48) Monocytes (%) (Auto) 1 % (0-9) Eosinophils (%) (Auto) 1 % (0-3) Basophils (%) (Auto) 1 % (0-3) Neutrophils # (Auto) 11.6 x10^3/uL (1.8-7.7) Lymphocytes # (Auto) 0.7 x10^3/uL (1.0-4.8) Monocytes # (Auto) 0.2 x10^3/uL (0.0-1.1) Eosinophils # (Auto) 0.1 x10^3/uL (0.0-0.7) Basophils # (Auto) 0.1 x10^3/uL (0.0-0.2) Segmented Neutrophils % 88 % (35-66) Band Neutrophils % 5 % (0-9) Lymphocytes % 4 % (24-48) Monocytes % 3 % (0-10) Platelet Estimate Adequate (ADEQUATE) Anisocytosis Slight Sodium Level 141 mmol/L (136-145) Potassium Level 4.3 mmol/L (3.5-5.1) Chloride Level 102 mmol/L (98-107) Carbon Dioxide Level 34 mmol/L (21-32) Anion Gap 5 (6-14) Blood Urea Nitrogen 23 mg/dL (8-26) Creatinine 1.2 mg/dL (0.7-1.3) Estimated GFR (Cockcroft-Gault) 62.2 BUN/Creatinine Ratio 19 (6-20) Glucose Level 193 mg/dL (70-99) Calcium Level 9.0 mg/dL (8.5-10.1) Phosphorus Level 3.5 mg/dL (2.6-4.7) Magnesium Level 2.8 mg/dL (1.8-2.4) Total Bilirubin 1.0 mg/dL (0.2-1.0) Aspartate Amino Transf (AST/SGOT) 53 U/L (15-37) Alanine Aminotransferase (ALT/SGPT) 39 U/L (16-63) Alkaline Phosphatase 273 U/L (46-116) Total Protein 6.7 g/dL (6.4-8.2) Albumin 2.3 g/dL (3.4-5.0) Albumin/Globulin Ratio 0.5 (1.0-1.7) Glucose (Fingerstick) 174 mg/dL (70-99) O2 Saturation 91 % (92-99) Arterial Blood pH 7.50 (7.35-7.45) Arterial Blood pH (Temp corrected) 7.46 Arterial Blood pCO2 at Patient Temp 36 mmHg (35-46) Arterial Blood pCO2 (Temp correct) 41 mmHg Arterial Blood pO2 at Patient Temp 59 mmHg (75-108) Arterial Blood pO2 (Temp corrected) 72 mmHg Arterial Blood HCO3 28 mmol/L (21-28) Arterial Blood Base Excess 5 mmol/L (-3-3) FiO2 100/bipap Test 09/01/20 12:25 09/01/20 15:20 09/01/20 23:31 09/02/20 06:23 O2 Saturation 90 % (92-99) 93 % (92-99) Arterial Blood pH 7.28 (7.35-7.45) 7.30 (7.35-7.45) Arterial Blood pH (Temp corrected) 7.24 Arterial Blood pCO2 at Patient Temp 66 mmHg (35-46) 59 mmHg (35-46) Arterial Blood pCO2 (Temp correct) 74 mmHg Arterial Blood pO2 at Patient Temp 70 mmHg (75-108) 76 mmHg (75-108) Arterial Blood pO2 (Temp corrected) 83 mmHg Arterial Blood HCO3 30 mmol/L (21-28) 28 mmol/L (21-28) Arterial Blood Base Excess 2 mmol/L (-3-3) 1 mmol/L (-3-3) Oxyhemoglobin 89.6 % Methemoglobin 0.4 % (0.0-1.9) Carbon Monoxide, Quantitative 0.5 % (0.0-1.9) FiO2 100% + 14 peep 100% +15 peep Glucose (Fingerstick) 273 mg/dL (70-99) 170 mg/dL (70-99) Test 09/02/20 08:00 O2 Saturation 89 % (92-99) Arterial Blood pH 7.38 (7.35-7.45) Arterial Blood pCO2 at Patient Temp 54 mmHg (35-46) Arterial Blood pO2 at Patient Temp 57 mmHg (75-108) Arterial Blood HCO3 31 mmol/L (21-28) Arterial Blood Base Excess 5 mmol/L (-3-3) FiO2 100/vent Laboratory Tests Test 09/01/20 12:25 09/01/20 15:20 09/01/20 23:31 09/02/20 06:23 O2 Saturation 90 % (92-99) 93 % (92-99) Arterial Blood pH 7.28 (7.35-7.45) 7.30 (7.35-7.45) Arterial Blood pH (Temp corrected) 7.24 Arterial Blood pCO2 at Patient Temp 66 mmHg (35-46) 59 mmHg (35-46) Arterial Blood pCO2 (Temp correct) 74 mmHg Arterial Blood pO2 at Patient Temp 70 mmHg (75-108) 76 mmHg (75-108) Arterial Blood pO2 (Temp corrected) 83 mmHg Arterial Blood HCO3 30 mmol/L (21-28) 28 mmol/L (21-28) Arterial Blood Base Excess 2 mmol/L (-3-3) 1 mmol/L (-3-3) Oxyhemoglobin 89.6 % Methemoglobin 0.4 % (0.0-1.9) Carbon Monoxide, Quantitative 0.5 % (0.0-1.9) FiO2 100% + 14 peep 100% +15 peep Glucose (Fingerstick) 273 mg/dL (70-99) 170 mg/dL (70-99) Test 09/02/20 08:00 O2 Saturation 89 % (92-99) Arterial Blood pH 7.38 (7.35-7.45) Arterial Blood pCO2 at Patient Temp 54 mmHg (35-46) Arterial Blood pO2 at Patient Temp 57 mmHg (75-108) Arterial Blood HCO3 31 mmol/L (21-28) Arterial Blood Base Excess 5 mmol/L (-3-3) FiO2 100/vent Medications Active Scripts Medications Dose Route/Sig Max Daily Dose Days Date Category Dose Instructions [cholecalcif] 25 Mcg PO DAILY 08/31/20 Reported Capsaicin 42.5 Gm Cream..g. 1 Chris TP QID 08/31/20 Reported [albuterol 90MCG] 2 Puff INH QID 08/31/20 Reported Robaxin-750 (Methocarbamol) 750 Mg Tablet 1 Tab PO BID 30 08/31/20 Reported Indomethacin 50 Mg Capsule 1 Cap PO BID 10 08/31/20 Reported with food Omeprazole 20 Mg Tablet.dr 20 Mg PO DAILY 08/31/20 Reported Gabapentin 600 Mg Tablet 600 Mg PO BID 08/31/20 Reported Crestor (Rosuvastatin Calcium) 40 Mg Tablet 20 Mg PO HS 08/31/20 Reported Singulair Tablet (Montelukast Sodium) 10 Mg Tablet 10 Mg PO HS 08/31/20 Reported Metformin Hcl 850 Mg Tablet 850 Mg PO BIDWMEALS 08/31/20 Reported Losartan Potassium 100 Mg Tablet 100 Mg PO DAILY 08/31/20 Reported Lasix (Furosemide) 20 Mg Tablet 20 Mg PO DAILY 08/31/20 Reported Refresh Optive Eye Drops (Carboxymethylcellulos/Glycerin) 15 Ml Drops 1 Drop EACHEYE BID PRN 08/31/20 Reported Prednisone 20 Mg Tablet 10 Mg PO DAILY 08/31/20 Reported Ropinirole Hcl 5 Mg Tablet 5 Mg PO QHS 08/31/20 Reported Comments CXR 09/01 IMPRESSION: 1. Interval placement of right-sided internal jugular line with the tip projecting in the SVC. No pneumothorax. 2. Mild prominent bilateral interstitial and airspace opacities likely edema or infiltrates. Impression . IMPRESSION: 1. Acute hypoxemic respiratory failure. 2. COVID-19 viral pneumonia. 3. Fever secondary to above. 4. Elevated D-dimer secondary to above. 5. Recent CT angiogram negative for pulmonary embolism. 6. Morbid obesity. 7. Obstructive sleep apnea. 8. Diabetes. Plan . PLAN: Continue current vent support 100% and PEEP 15 Follow CXR/ABG-- no changes Continue steroids for full 10 day course Continue Empiric ABX pt. has completed full course of remdesivir consult attending pathologist for TF recs DVT/GI PPX D/W RN and RT pt. is DNR Critical Care time [id number] INDRA YAÑEZ MD Sep 02, 2020 10:03
[2020-09-02] MEDS: ACETAMINOPHEN 650 MG/20.3 ML SOLUTION. PEG PRN (11:46)
[2020-09-02 12:51] LABS: BASO % 0 % (0-3); EOS # 0.2 x10^3/uL (0.0-0.7); EOS % 1 % (0-3); HEMATOCRIT 36.9 % (39.0-53.0); HEMOGLOBIN 11.9 g/dL (13.0-17.5); LYMPH # 0.2 x10^3/uL (1.0-4.8); LYMPH % 1 % (24-48); MEAN CORPUSCULAR HEMOGLOBIN 25 pg (25-35); MEAN CORPUSCULAR HGB CONC 32 g/dL (31-37); MEAN CORPUSCULAR VOLUME 77 fL (79-100); MONO # 0.3 x10^3/uL (0.0-1.1); MONO % 2 % (0-9); NEUT # 11.2 x10^3/uL (1.8-7.7); NEUT % 95 % (31-73); PLATELET COUNT 182 x10^3/uL (140-400); RED BLOOD COUNT 4.79 x10^6/uL (4.30-5.70); WHITE BLOOD COUNT 11.9 x10^3/uL (4.0-11.0)
[2020-09-02 13:01] LABS: ALBUMIN 1.8 g/dL (3.4-5.0); ALBUMIN/GLOBULIN RATIO 0.4 (1.0-1.7); CALCIUM 8.3 mg/dL (8.5-10.1); CREATININE 1.7 mg/dL (0.7-1.3); GFR 41.6; POTASSIUM 4.7 mmol/L (3.5-5.1); TOTAL BILIRUBIN 0.7 mg/dL (0.2-1.0); TOTAL PROTEIN 6.2 g/dL (6.4-8.2)
[2020-09-02] MEDS ORDERED: EPINEPHrine SYRINGE 1 MG/10 ML SYRINGE ONE (15:00)
--- NOTE | 2020-09-02 16:07 | NUR ---
SS following up with discharge planning. SS reviewed pt chart and discussed with pt RN. Pt is on the vent at 100%. COVID19 positive. Pt on IV Rocephin and IV Doxycycline. Not stable. SS will continue to follow for discharge planning.
[2020-09-02] MEDS: cefTRIAXone IV Push 1 GM VIAL. IVP SCH (16:18)
[2020-09-02] MEDS: fentaNYL HIGH DOSE PCA 55 ML IV PRN (17:49)
[2020-09-02] MEDS: ATORVASTATIN CALCIUM 40 MG TABLET. PO SCH (21:01)
[2020-09-03] VITALS (24 sets, daily range): BP systolic 89–199; BP diastolic 42–101
[2020-09-03] MEDS: INSULIN LISPRO 300 UNITS/3 ML VIAL. SQ SCH ×5 (00:25→23:42)
[2020-09-03] MEDS: THIAMINE INJ 100 MG in IV DEXTROSE 5% 50 ML IV SCH ×3 (07:15→20:25)
[2020-09-03 08:05] LABS: BASE EXCESS ABG 0 mmol/L (-3-3); HCO3 ABG 27 mmol/L (21-28); PCO2 ABG 51 mmHg (35-46); PO2 ABG 64 mmHg (75-108); SAT O2 ABG 90 % (92-99)
[2020-09-03 08:16] LABS: BASO % 0 % (0-3); EOS # 0.1 x10^3/uL (0.0-0.7); EOS % 1 % (0-3); HEMATOCRIT 33.4 % (39.0-53.0); LYMPH # 0.4 x10^3/uL (1.0-4.8); LYMPH % 4 % (24-48); MEAN CORPUSCULAR HEMOGLOBIN 25 pg (25-35); MEAN CORPUSCULAR HGB CONC 33 g/dL (31-37); MEAN CORPUSCULAR VOLUME 77 fL (79-100); MONO # 0.3 x10^3/uL (0.0-1.1); MONO % 2 % (0-9); NEUT # 10.1 x10^3/uL (1.8-7.7); NEUT % 92 % (31-73); PLATELET COUNT 192 x10^3/uL (140-400); RED BLOOD COUNT 4.36 x10^6/uL (4.30-5.70); RED CELL DISTRIBUTION WIDTH 15.1 % (11.5-14.5)
[2020-09-03] MEDS: PROPOFOL 100 ML IV PRN ×2 (08:16→15:31)
[2020-09-03 08:19] LABS: FIO2 ABG 100/VENT
[2020-09-03] MEDS: INSULIN GLARGINE SYRINGE. SQ SCH (08:27)
[2020-09-03] MEDS: DEXAMETHASONE SOD PHOS 4 MG/ML VIAL IVP SCH (08:28)
[2020-09-03] MEDS: FUROSEMIDE 20 MG/2 ML VIAL. IVP SCH (08:28)
[2020-09-03] MEDS: ASCORBIC ACID 1,000 MG TABLET PO SCH ×3 (08:29→20:25)
[2020-09-03] MEDS: ENOXAPARIN 40 MG/0.4 ML SYRINGE. SQ SCH ×2 (08:29→21:00)
[2020-09-03] MEDS: PANTOPRAZOLE IV PUSH 40 MG VIAL. IVP SCH (08:29)
[2020-09-03] MEDS: DOXYCYCLINE HYCLATE 100 MG in IV DEXTROSE 5% 100ML 100 ML IV SCH ×2 (08:30→20:26)
[2020-09-03] MEDS: GABAPENTIN 300 MG CAPSULE. PO SCH ×2 (08:34→20:25)
[2020-09-03] MEDS: CHOLECALCIFEROL (VITAMIN D3) 1,000 UNIT TABLET PO SCH (08:34)
[2020-09-03 08:48] LABS: CALCIUM 8.1 mg/dL (8.5-10.1); CREATININE 3.2 mg/dL (0.7-1.3); GFR 20.1; POTASSIUM 4.6 mmol/L (3.5-5.1)
[2020-09-03] MEDS: MIDAZOLAM 100mg/100ml NS BAG 100 ML IV PRN ×2 (10:13→23:41)
--- NOTE | 2020-09-03 10:18 | PDOC ---
PROGRESS NOTES Date of Service: DATE: 09/03/20 TIME: 10:18 Chief Complaint Chief Complaint Images: Images Negative CT of the chest done Sunday at the [place] Pending chest x-ray Assessment/Plan Assessment/Plan Acute hypoxic respiratory failure due to COVID-19 infection requiring BiPAP support Diabetes mellitus Morbid obesity intubated 09/01 now on vent at 100% and PEEP of 15 febrile overnight PLAN Admit to ICU for close respiratory monitoring Pulmonology consult vent at 100% and PEEP of 15 Continue IV dexamethasone 6 mg daily Lovenox twice daily for DVT prophylaxis Protonix while on steroids GI prophylaxis ADA diet Full code Discussed with RN Disposition inpatient management as above Surrogate decision maker is the PCXR 33 minutes of critical care time Justifications for Admission Justifications for Admission Other Justification Acute respiratory failure due to COVID History of Present Illness History of Present Illness Chief Complaint: Chief Complain: COVID pneumonia History of Present Illness: HPI: History obtained from patient and transferring physician Dr. Ramos from the [place] Patient is a 60-year-old male with past medical history of insulin dependent diabetes mellitus, morbid obesity, MARGARITO who was transferred due to acute respiratory failure due to COVID-19 infection. Patient was tested positive for Covid on 08/25/2020 patient was treated with IV remdesivir and Decadron he did finish 5 days of IV antibiotics and has still continued to be fever with a T-max of 101 F. He was tested for procalcitonin and it was been negative x2. Patient was initially placed on nasal cannula at and transition to Vapotherm and he needed to go up on his requirements to 40 L and he has been on BiPAP now 100% FiO2 for the past 2 days. Patient's D-dimer was also elevated and a chest CTA was ordered which was negative, this was done on Sunday. The reason for the transfer is to have a pulmonology specialist to oversee their care. [place] physician has attempted to transfer to [facility] but the beds are full at this time. Currently the patient denies any respiratory distress he is currently saturating 100% on FiO2 of 100% BiPAP in the ICU. Currently denies fevers, chest pain, abdominal pain, diarrhea, dysuria, or hemoptysis. Past Medical/Surgical History: PMH/PSH: DM insulin dependent, CAD, HTN MARGARITO- compliant with CPAP Morbid Obesity Hx of LBBB Allergies: Allergies: Coded Allergies: flunisolide (Verified Adverse Reaction, Mild, insufficient response, 08/31/20) lisinopril (Verified Adverse Reaction, Mild, cough, 08/31/20) Family History: Family History: Reviewed with no relevant findings Social History: Social History: Denies alcohol, tobacco, drug abuse Current Medications: Current Medications Vitals Vitals Vital Signs Date Time Temp Pulse Resp B/P (MAP) Pulse Ox O2 Delivery O2 Flow Rate FiO2 09/03/20 10:03 74 29 132/50 (77) 94 Ventilator 09/03/20 08:00 98.0 98.0 09/02/20 18:19 95.0 Physical Exam Physical Exam Physcial Exam: GEN: No apparent distress. sedated on vent HEENT: Normal cephalic, atraumatic, external auditory canals are patent EYES: Extraocular muscles are intact, pupil are equally round and reactive to light and accommodation MUSCULOSKELETAL: Well developed , well nourished, good range of motion ENDOCRINE: No thyromegaly was palpated LYMPHATICS: No cervical chain or axillary nodes were noted HEMATOPOIETIC: No bruising NECK: Supple, no JVD, no thyromegaly was noted LUNGS: Clear to auscultation in all lung snyder without rhonchi or wheezing HEART: RRR, S!, S2 present. Peripheral pulses intact, no obvious murmurs noted ABDOMEN: Soft, nontender. Positive bowel sounds, no organomegaly, normal bowel sounds EXTREMITIES: Without clubbing, cyanosis, or edema. Pedal pulses intact. Negative Homans sign NEUROLOGIC: no obvious focal deficits SKIN: No ulcerations or rashes, good skin turgor, no jaundice VASCULAR: Good capillary refill, neurovascular bundle appears to be intact General: Cooperative Extremities: No cyanosis Labs LABS EXAM: CHEST 1 VIEW History : Central line insertion. COMPARISON: 09/01/2020 TECHNIQUE: Single portable radiograph of the chest FINDINGS: The ET tube is identified in the trachea at the level of the clavicles. The feeding tube is identified in the stomach. Interval placement of right-sided internal jugular line with the tip projecting in the SVC. Mild prominent bilateral interstitial and airspace opacities that exam. No pneumothorax. IMPRESSION: 1. Interval placement of right-sided internal jugular line with the tip pro jecting in the SVC. No pneumothorax. 2. Mild prominent bilateral interstitial and airspace opacities likely edema or infiltrates. Electronically signed by: Jack Coughlin MD (09/01/2020 2:17 PM) [id number] DICTATED and SIGNED BY: JACK COUGHLIN MD DATE: 09/01/20 [id number] Laboratory Tests Test 09/02/20 11:40 09/02/20 12:35 09/02/20 17:40 09/03/20 00:23 Glucose (Fingerstick) 226 mg/dL (70-99) 259 mg/dL (70-99) 263 mg/dL (70-99) White Blood Count 11.9 x10^3/uL (4.0-11.0) Red Blood Count 4.79 x10^6/uL (4.30-5.70) Hemoglobin 11.9 g/dL (13.0-17.5) Hematocrit 36.9 % (39.0-53.0) Mean Corpuscular Volume 77 fL (79-100) Mean Corpuscular Hemoglobin 25 pg (25-35) Mean Corpuscular Hemoglobin Concent 32 g/dL (31-37) Red Cell Distribution Width 15.0 % (11.5-14.5) Platelet Count 182 x10^3/uL (140-400) Neutrophils (%) (Auto) 95 % (31-73) Lymphocytes (%) (Auto) 1 % (24-48) Monocytes (%) (Auto) 2 % (0-9) Eosinophils (%) (Auto) 1 % (0-3) Basophils (%) (Auto) 0 % (0-3) Neutrophils # (Auto) 11.2 x10^3/uL (1.8-7.7) Lymphocytes # (Auto) 0.2 x10^3/uL (1.0-4.8) Monocytes # (Auto) 0.3 x10^3/uL (0.0-1.1) Eosinophils # (Auto) 0.2 x10^3/uL (0.0-0.7) Basophils # (Auto) 0.0 x10^3/uL (0.0-0.2) Sodium Level 138 mmol/L (136-145) Potassium Level 4.7 mmol/L (3.5-5.1) Chloride Level 103 mmol/L (98-107) Carbon Dioxide Level 30 mmol/L (21-32) Anion Gap 5 (6-14) Blood Urea Nitrogen 35 mg/dL (8-26) Creatinine 1.7 mg/dL (0.7-1.3) Estimated GFR (Cockcroft-Gault) 41.6 BUN/Creatinine Ratio 21 (6-20) Glucose Level 254 mg/dL (70-99) Calcium Level 8.3 mg/dL (8.5-10.1) Total Bilirubin 0.7 mg/dL (0.2-1.0) Aspartate Amino Transf (AST/SGOT) 165 U/L (15-37) Alanine Aminotransferase (ALT/SGPT) 87 U/L (16-63) Alkaline Phosphatase 206 U/L (46-116) Total Protein 6.2 g/dL (6.4-8.2) Albumin 1.8 g/dL (3.4-5.0) Albumin/Globulin Ratio 0.4 (1.0-1.7) Test 09/03/20 05:40 09/03/20 07:03 09/03/20 07:45 White Blood Count 11.0 x10^3/uL (4.0-11.0) Red Blood Count 4.36 x10^6/uL (4.30-5.70) Hemoglobin 11.0 g/dL (13.0-17.5) Hematocrit 33.4 % (39.0-53.0) Mean Corpuscular Volume 77 fL (79-100) Mean Corpuscular Hemoglobin 25 pg (25-35) Mean Corpuscular Hemoglobin Concent 33 g/dL (31-37) Red Cell Distribution Width 15.1 % (11.5-14.5) Platelet Count 192 x10^3/uL (140-400) Neutrophils (%) (Auto) 92 % (31-73) Lymphocytes (%) (Auto) 4 % (24-48) Monocytes (%) (Auto) 2 % (0-9) Eosinophils (%) (Auto) 1 % (0-3) Basophils (%) (Auto) 0 % (0-3) Neutrophils # (Auto) 10.1 x10^3/uL (1.8-7.7) Lymphocytes # (Auto) 0.4 x10^3/uL (1.0-4.8) Monocytes # (Auto) 0.3 x10^3/uL (0.0-1.1) Eosinophils # (Auto) 0.1 x10^3/uL (0.0-0.7) Basophils # (Auto) 0.0 x10^3/uL (0.0-0.2) Sodium Level 140 mmol/L (136-145) Potassium Level 4.6 mmol/L (3.5-5.1) Chloride Level 103 mmol/L (98-107) Carbon Dioxide Level 29 mmol/L (21-32) Anion Gap 8 (6-14) Blood Urea Nitrogen 59 mg/dL (8-26) Creatinine 3.2 mg/dL (0.7-1.3) Estimated GFR (Cockcroft-Gault) 20.1 Glucose Level 214 mg/dL (70-99) Calcium Level 8.1 mg/dL (8.5-10.1) Glucose (Fingerstick) 210 mg/dL (70-99) O2 Saturation 90 % (92-99) Arterial Blood pH 7.34 (7.35-7.45) Arterial Blood pCO2 at Patient Temp 51 mmHg (35-46) Arterial Blood pO2 at Patient Temp 64 mmHg (75-108) Arterial Blood HCO3 27 mmol/L (21-28) Arterial Blood Base Excess 0 mmol/L (-3-3) FiO2 100/vent Comment Review of Relevant I have reviewed the following items lexa (where applicable) has been applied. Labs Laboratory Tests Test 09/01/20 12:25 09/01/20 15:20 09/01/20 23:31 09/02/20 06:23 O2 Saturation 90 % (92-99) 93 % (92-99) Arterial Blood pH 7.28 (7.35-7.45) 7.30 (7.35-7.45) Arterial Blood pH (Temp corrected) 7.24 Arterial Blood pCO2 at Patient Temp 66 mmHg (35-46) 59 mmHg (35-46) Arterial Blood pCO2 (Temp correct) 74 mmHg Arterial Blood pO2 at Patient Temp 70 mmHg (75-108) 76 mmHg (75-108) Arterial Blood pO2 (Temp corrected) 83 mmHg Arterial Blood HCO3 30 mmol/L (21-28) 28 mmol/L (21-28) Arterial Blood Base Excess 2 mmol/L (-3-3) 1 mmol/L (-3-3) Oxyhemoglobin 89.6 % Methemoglobin 0.4 % (0.0-1.9) Carbon Monoxide, Quantitative 0.5 % (0.0-1.9) FiO2 100% + 14 peep 100% +15 peep Glucose (Fingerstick) 273 mg/dL (70-99) 170 mg/dL (70-99) Test 09/02/20 08:00 09/02/20 11:40 09/02/20 12:35 09/02/20 17:40 O2 Saturation 89 % (92-99) Arterial Blood pH 7.38 (7.35-7.45) Arterial Blood pCO2 at Patient Temp 54 mmHg (35-46) Arterial Blood pO2 at Patient Temp 57 mmHg (75-108) Arterial Blood HCO3 31 mmol/L (21-28) Arterial Blood Base Excess 5 mmol/L (-3-3) FiO2 100/vent Glucose (Fingerstick) 226 mg/dL (70-99) 259 mg/dL (70-99) White Blood Count 11.9 x10^3/uL (4.0-11.0) Red Blood Count 4.79 x10^6/uL (4.30-5.70) Hemoglobin 11.9 g/dL (13.0-17.5) Hematocrit 36.9 % (39.0-53.0) Mean Corpuscular Volume 77 fL (79-100) Mean Corpuscular Hemoglobin 25 pg (25-35) Mean Corpuscular Hemoglobin Concent 32 g/dL (31-37) Red Cell Distribution Width 15.0 % (11.5-14.5) Platelet Count 182 x10^3/uL (140-400) Neutrophils (%) (Auto) 95 % (31-73) Lymphocytes (%) (Auto) 1 % (24-48) Monocytes (%) (Auto) 2 % (0-9) Eosinophils (%) (Auto) 1 % (0-3) Basophils (%) (Auto) 0 % (0-3) Neutrophils # (Auto) 11.2 x10^3/uL (1.8-7.7) Lymphocytes # (Auto) 0.2 x10^3/uL (1.0-4.8) Monocytes # (Auto) 0.3 x10^3/uL (0.0-1.1) Eosinophils # (Auto) 0.2 x10^3/uL (0.0-0.7) Basophils # (Auto) 0.0 x10^3/uL (0.0-0.2) Sodium Level 138 mmol/L (136-145) Potassium Level 4.7 mmol/L (3.5-5.1) Chloride Level 103 mmol/L (98-107) Carbon Dioxide Level 30 mmol/L (21-32) Anion Gap 5 (6-14) Blood Urea Nitrogen 35 mg/dL (8-26) Creatinine 1.7 mg/dL (0.7-1.3) Estimated GFR (Cockcroft-Gault) 41.6 BUN/Creatinine Ratio 21 (6-20) Glucose Level 254 mg/dL (70-99) Calcium Level 8.3 mg/dL (8.5-10.1) Total Bilirubin 0.7 mg/dL (0.2-1.0) Aspartate Amino Transf (AST/SGOT) 165 U/L (15-37) Alanine Aminotransferase (ALT/SGPT) 87 U/L (16-63) Alkaline Phosphatase 206 U/L (46-116) Total Protein 6.2 g/dL (6.4-8.2) Albumin 1.8 g/dL (3.4-5.0) Albumin/Globulin Ratio 0.4 (1.0-1.7) Test 09/03/20 00:23 09/03/20 05:40 09/03/20 07:03 09/03/20 07:45 Glucose (Fingerstick) 263 mg/dL (70-99) 210 mg/dL (70-99) White Blood Count 11.0 x10^3/uL (4.0-11.0) Red Blood Count 4.36 x10^6/uL (4.30-5.70) Hemoglobin 11.0 g/dL (13.0-17.5) Hematocrit 33.4 % (39.0-53.0) Mean Corpuscular Volume 77 fL (79-100) Mean Corpuscular Hemoglobin 25 pg (25-35) Mean Corpuscular Hemoglobin Concent 33 g/dL (31-37) Red Cell Distribution Width 15.1 % (11.5-14.5) Platelet Count 192 x10^3/uL (140-400) Neutrophils (%) (Auto) 92 % (31-73) Lymphocytes (%) (Auto) 4 % (24-48) Monocytes (%) (Auto) 2 % (0-9) Eosinophils (%) (Auto) 1 % (0-3) Basophils (%) (Auto) 0 % (0-3) Neutrophils # (Auto) 10.1 x10^3/uL (1.8-7.7) Lymphocytes # (Auto) 0.4 x10^3/uL (1.0-4.8) Monocytes # (Auto) 0.3 x10^3/uL (0.0-1.1) Eosinophils # (Auto) 0.1 x10^3/uL (0.0-0.7) Basophils # (Auto) 0.0 x10^3/uL (0.0-0.2) Sodium Level 140 mmol/L (136-145) Potassium Level 4.6 mmol/L (3.5-5.1) Chloride Level 103 mmol/L (98-107) Carbon Dioxide Level 29 mmol/L (21-32) Anion Gap 8 (6-14) Blood Urea Nitrogen 59 mg/dL (8-26) Creatinine 3.2 mg/dL (0.7-1.3) Estimated GFR (Cockcroft-Gault) 20.1 Glucose Level 214 mg/dL (70-99) Calcium Level 8.1 mg/dL (8.5-10.1) O2 Saturation 90 % (92-99) Arterial Blood pH 7.34 (7.35-7.45) Arterial Blood pCO2 at Patient Temp 51 mmHg (35-46) Arterial Blood pO2 at Patient Temp 64 mmHg (75-108) Arterial Blood HCO3 27 mmol/L (21-28) Arterial Blood Base Excess 0 mmol/L (-3-3) FiO2 100/vent Laboratory Tests Test 09/02/20 11:40 09/02/20 12:35 09/02/20 17:40 09/03/20 00:23 Glucose (Fingerstick) 226 mg/dL (70-99) 259 mg/dL (70-99) 263 mg/dL (70-99) White Blood Count 11.9 x10^3/uL (4.0-11.0) Red Blood Count 4.79 x10^6/uL (4.30-5.70) Hemoglobin 11.9 g/dL (13.0-17.5) Hematocrit 36.9 % (39.0-53.0) Mean Corpuscular Volume 77 fL (79-100) Mean Corpuscular Hemoglobin 25 pg (25-35) Mean Corpuscular Hemoglobin Concent 32 g/dL (31-37) Red Cell Distribution Width 15.0 % (11.5-14.5) Platelet Count 182 x10^3/uL (140-400) Neutrophils (%) (Auto) 95 % (31-73) Lymphocytes (%) (Auto) 1 % (24-48) Monocytes (%) (Auto) 2 % (0-9) Eosinophils (%) (Auto) 1 % (0-3) Basophils (%) (Auto) 0 % (0-3) Neutrophils # (Auto) 11.2 x10^3/uL (1.8-7.7) Lymphocytes # (Auto) 0.2 x10^3/uL (1.0-4.8) Monocytes # (Auto) 0.3 x10^3/uL (0.0-1.1) Eosinophils # (Auto) 0.2 x10^3/uL (0.0-0.7) Basophils # (Auto) 0.0 x10^3/uL (0.0-0.2) Sodium Level 138 mmol/L (136-145) Potassium Level 4.7 mmol/L (3.5-5.1) Chloride Level 103 mmol/L (98-107) Carbon Dioxide Level 30 mmol/L (21-32) Anion Gap 5 (6-14) Blood Urea Nitrogen 35 mg/dL (8-26) Creatinine 1.7 mg/dL (0.7-1.3) Estimated GFR (Cockcroft-Gault) 41.6 BUN/Creatinine Ratio 21 (6-20) Glucose Level 254 mg/dL (70-99) Calcium Level 8.3 mg/dL (8.5-10.1) Total Bilirubin 0.7 mg/dL (0.2-1.0) Aspartate Amino Transf (AST/SGOT) 165 U/L (15-37) Alanine Aminotransferase (ALT/SGPT) 87 U/L (16-63) Alkaline Phosphatase 206 U/L (46-116) Total Protein 6.2 g/dL (6.4-8.2) Albumin 1.8 g/dL (3.4-5.0) Albumin/Globulin Ratio 0.4 (1.0-1.7) Test 09/03/20 05:40 09/03/20 07:03 09/03/20 07:45 White Blood Count 11.0 x10^3/uL (4.0-11.0) Red Blood Count 4.36 x10^6/uL (4.30-5.70) Hemoglobin 11.0 g/dL (13.0-17.5) Hematocrit 33.4 % (39.0-53.0) Mean Corpuscular Volume 77 fL (79-100) Mean Corpuscular Hemoglobin 25 pg (25-35) Mean Corpuscular Hemoglobin Concent 33 g/dL (31-37) Red Cell Distribution Width 15.1 % (11.5-14.5) Platelet Count 192 x10^3/uL (140-400) Neutrophils (%) (Auto) 92 % (31-73) Lymphocytes (%) (Auto) 4 % (24-48) Monocytes (%) (Auto) 2 % (0-9) Eosinophils (%) (Auto) 1 % (0-3) Basophils (%) (Auto) 0 % (0-3) Neutrophils # (Auto) 10.1 x10^3/uL (1.8-7.7) Lymphocytes # (Auto) 0.4 x10^3/uL (1.0-4.8) Monocytes # (Auto) 0.3 x10^3/uL (0.0-1.1) Eosinophils # (Auto) 0.1 x10^3/uL (0.0-0.7) Basophils # (Auto) 0.0 x10^3/uL (0.0-0.2) Sodium Level 140 mmol/L (136-145) Potassium Level 4.6 mmol/L (3.5-5.1) Chloride Level 103 mmol/L (98-107) Carbon Dioxide Level 29 mmol/L (21-32) Anion Gap 8 (6-14) Blood Urea Nitrogen 59 mg/dL (8-26) Creatinine 3.2 mg/dL (0.7-1.3) Estimated GFR (Cockcroft-Gault) 20.1 Glucose Level 214 mg/dL (70-99) Calcium Level 8.1 mg/dL (8.5-10.1) Glucose (Fingerstick) 210 mg/dL (70-99) O2 Saturation 90 % (92-99) Arterial Blood pH 7.34 (7.35-7.45) Arterial Blood pCO2 at Patient Temp 51 mmHg (35-46) Arterial Blood pO2 at Patient Temp 64 mmHg (75-108) Arterial Blood HCO3 27 mmol/L (21-28) Arterial Blood Base Excess 0 mmol/L (-3-3) FiO2 100/vent Medications Current Medications Sennosides (Senna) 17.2 mg PRN BID PRN PO CONSTIPATION; Start 08/31/20 at 18:15 Docusate Sodium (Colace) 100 mg PRN DAILY PRN PO HARD STOOLS; Start 08/31/20 at 18:15 Ondansetron HCl (Zofran) 4 mg PRN Q6HRS PRN IVP NAUSEA/VOMITING; Start 08/31/20 at 18:15 Insulin Human Lispro (HumaLOG) 0-9 UNITS TIDWMEALS SQ ; Start 09/01/20 at 08:00; Stop 09/01/20 at 17:13; Status DC Dextrose (Dextrose 50%-Water Syringe) 12.5 gm PRN Q15MIN PRN IV SEE COMMENTS; Start 08/31/20 at 18:15 Enoxaparin Sodium (Lovenox 40mg Syringe) 40 mg Q24H SQ ; Start 08/31/20 at 21:00; Stop 08/31/20 at 18:36; Status DC Pantoprazole Sodium (PROTONIX VIAL for IV PUSH) 40 mg DAILYAC IVP Last admin istered on 09/03/20at 08:29; Start 09/01/20 at 07:30 Enoxaparin Sodium (Lovenox 40mg Syringe) 40 mg BID SQ Last administered on 09/03/20at 08:29; Start 08/31/20 at 21:00 Dexamethasone Sodium Phosphate (Decadron) 6 mg DAILY IVP Last administered on 09/03/20at 08:28; Start 09/01/20 at 09:00 Ascorbic Acid (Vitamin C) 3,000 mg TID PO Last administered on 09/03/20at 08:29; Start 08/31/20 at 21:00 Thiamine HCl 100 mg/Dextrose 51 ml @ 102 mls/hr Q8HRS IV Last administered on 09/03/20at 07:15; Start 08/31/20 at 22:00 Insulin Glargine (Lantus Syringe) 40 unit DAILY SQ Last administered on 09/03/20at 08:27; Start 09/01/20 at 09:00 Furosemide (Lasix) 20 mg DAILY PO ; Start 09/01/20 at 09:00; Stop 09/01/20 at 10:06; Status DC Metformin HCl (Glucophage) 850 mg BIDWMEALS PO ; Start 09/01/20 at 08:00; Stop 09/01/20 at 17:13; Status DC Methocarbamol (Robaxin) 750 mg BID PO Last administered on 08/31/20at 21:01; Start 08/31/20 at 21:00; Stop 09/01/20 at 17:13; Status DC Montelukast Sodium (Singulair) 10 mg HS PO Last administered on 08/31/20at 20:05; Start 08/31/20 at 21:00; Stop 09/01/20 at 17:13; Status DC Capsaicin (Zostrix) 1 chris QID TP Last administered on 08/31/20at 21:02; Start 08/31/20 at 21:00; Stop 09/01/20 at 17:13; Status DC Glycerin/ Hypromellose/ Polyethylene (Artificial Tears) 1 drop PRN BID PRN OU DRY EYE; Start 08/31/20 at 19:45; Stop 09/01/20 at 10:49; Status DC Gabapentin (Neurontin) 600 mg BID PO Last administered on 09/03/20at 08:34; Start 08/31/20 at 21:00 Indomethacin (Indocin) 50 mg BIDWMEALS PO Last administered on 08/31/20at 21:02; Start 08/31/20 at 21:00; Stop 09/01/20 at 17:13; Status DC Losartan Potassium (Cozaar) 100 mg DAILY PO ; Start 09/01/20 at 09:00; Stop 09/01/20 at 10:06; Status DC Non-Formulary Medication (Omeprazole ) 20 mg DAILY PO ; Start 09/01/20 at 09:00; Status UNV Ropinirole HCl (Requip) 5 mg QHS PO Last administered on 08/31/20at 20:06; Start 08/31/20 at 21:00; Stop 09/01/20 at 17:13; Status DC Atorvastatin Calcium (Lipitor) 80 mg QHS PO Last administered on 09/02/20at 21:01; Start 08/31/20 at 21:00 Vitamin D (Vitamin D3) 1,000 unit DAILY PO Last administered on 09/03/20at 08:34; Start 09/01/20 at 09:00 Labetalol HCl (Normodyne Iv Push) 10 mg TID PRN PRN IVP SBP>180 Last administered on 09/02/20at 08:06; Start 08/31/20 at 21:45 Lorazepam (Ativan) 0.25 mg PRN Q6HRS PRN PO ANXIETY / AGITATION; Start 09/01/20 at 06:30 Benzonatate (Tessalon Perle) 100 mg PRN Q8HRS PRN PO COUGH Last administered on 09/01/20at 06:34; Start 09/01/20 at 06:30 Morphine Sulfate (Morphine Sulfate) 2 mg PRN Q2HR PRN IV PAIN Last administered on 09/01/20at 10:05; Start 09/01/20 at 06:30 Metoprolol Tartrate (Lopressor Vial) 5 mg 1X ONCE IVP ; Start 09/01/20 at 10:15; Stop 09/01/20 at 10:16; Status DC Acetaminophen (Tylenol Supp) 650 mg PRN Q6HRS PRN [place] MILD PAIN / TEMP > 100.3'F; Start 09/01/20 at 10:15 Metoprolol Tartrate (Lopressor Vial) 5 mg PRN Q6HRS PRN IVP SBP>160 Last administered on 09/02/20at 10:41; Start 09/01/20 at 10:15 Furosemide (Lasix) 20 mg DAILY IVP Last administered on 09/03/20at 08:28; Start 09/01/20 at 10:30 Succinylcholine Chloride (Anectine) 200 mg STK-MED ONCE .ROUTE ; Start 09/01/20 at 10:27; Stop 09/01/20 at 10:28; Status DC Etomidate (Amidate) 20 mg STK-MED ONCE IV ; Start 09/01/20 at 10:28; Stop 09/01/20 at 10:28; Status DC Midazolam HCl (Versed) 5 mg STK-MED ONCE .ROUTE ; Start 09/01/20 at 10:34; Stop 09/01/20 at 10:35; Status DC Fentanyl Citrate 30 ml @ 0 mls/hr CONT PRN IV SEE PROTOCOL Last administered on 09/01/20at 11:13; Start 09/01/20 at 10:45; Stop 09/01/20 at 15:00; Status DC Midazolam HCl 100 ml @ 0 mls/hr CONT PRN IV SEE PROTOCOL Last administered on 09/03/20at 10:13; Start 09/01/20 at 10:45 Fentanyl Citrate 30 ml @ 0 mls/hr CONT PRN IV SEE PROTOCOL; Start 09/01/20 at 10:30; Status UNV Propofol 100 ml @ 0 mls/hr CONT PRN IV PER PROTOCOL Last administered on 09/03/20at 08:16; Start 09/01/20 at 10:30 Glycerin/ Hypromellose/ Polyethylene (Artificial Tears) 1 drop PRN Q1HR PRN OU DRY EYE; Start 09/01/20 at 10:30 Midazolam HCl 100 ml @ 0 mls/hr CONT PRN IV SEE PROTOCOL; Start 09/01/20 at 10:30; Status UNV Diphenhydramine HCl (Benadryl) 25 mg PRN Q15MIN PRN IVP EPS Symptoms; Start 09/01/20 at 10:30 Midazolam HCl (Versed) 5 mg 1X ONCE IV Last administered on 09/01/20at 11:07; Start 09/01/20 at 10:30; Stop 09/01/20 at 10:49; Status DC Etomidate (Amidate) 14 mg 1X ONCE IV Last administered on 09/01/20at 11:06; Start 09/01/20 at 11:00; Stop 09/01/20 at 11:02; Status DC Succinylcholine Chloride (Anectine) 120 mg 1X ONCE IV Last administered on 09/01/20at 11:03; Start 09/01/20 at 11:00; Stop 09/01/20 at 11:02; Status DC Vecuronium [place] (Norcuron Bolus) 10 mg STK-MED ONCE IV ; Start 09/01/20 at 11:09; Stop 09/01/20 at 11:09; Status DC Vecuronium [place] (Norcuron Bolus) 6 mg 1X ONCE IV Last administered on 09/01/20at 11:19; Start 09/01/20 at 11:15; Stop 09/01/20 at 11:17; Status DC Acetaminophen (Tylenol) 650 mg PRN Q6HRS PRN PEG MILD PAIN / TEMP > 100.3'F Last administered on 09/02/20at 11:46; Start 09/01/20 at 12:00 Vecuronium [place] (Norcuron Bolus) 6 mg PRN Q1HR PRN IV SEE ADMIN INSTRUCTIONS Last administered on 09/02/20at 12:03; Start 09/01/20 at 12:30 Furosemide (Lasix) 40 mg 1X ONCE IVP Last administered on 09/01/20at 13:00; Start 09/01/20 at 13:00; Stop 09/01/20 at 13:01; Status DC Dopamine HCl/ Dextrose 250 ml @ 26.063 mls/ hr CONT PRN IV SEE I/O RECORD; St art 09/01/20 at 13:00 Fentanyl Citrate 55 ml @ 0 mls/hr CONT PRN IV SEE PROTOCOL Last administered on 09/02/20at 17:49; Start 09/01/20 at 14:15 Doxycycline Hyclate 100 mg/ Dextrose 100 ml @ 50 mls/hr Q12HR IV Last administered on 09/03/20at 08:30; Start 09/01/20 at 21:00 Ceftriaxone Sodium (Rocephin) 1 gm Q24H IVP Last administered on 09/02/20at 16:18; Start 09/01/20 at 15:00 Insulin Human Lispro (HumaLOG) 0-9 UNITS Q6HRS SQ Last administered on 09/03/20at 07:04; Start 09/01/20 at 18:00 Active Scripts Active Reported [cholecalcif] 25 Mcg PO DAILY Capsaicin 42.5 Gm Cream..g. 1 Chris TP QID [albuterol 90MCG] 2 Puff INH QID Robaxin-750 (Methocarbamol) 750 Mg Tablet 1 Tab PO BID 30 Days Indomethacin 50 Mg Capsule 1 Cap PO BID 10 Days with food Omeprazole 20 Mg Tablet.dr 20 Mg PO DAILY Gabapentin 600 Mg Tablet 600 Mg PO BID Crestor (Rosuvastatin Calcium) 40 Mg Tablet 20 Mg PO HS Singulair Tablet (Montelukast Sodium) 10 Mg Tablet 10 Mg PO HS Metformin Hcl 850 Mg Tablet 850 Mg PO BIDWMEALS Losartan Potassium 100 Mg Tablet 100 Mg PO DAILY Lasix (Furosemide) 20 Mg Tablet 20 Mg PO DAILY Refresh Optive Eye Drops (Carboxymethylcellulos/Glycerin) 15 Ml Drops 1 Drop EACHEYE BID PRN Prednisone 20 Mg Tablet 10 Mg PO DAILY Ropinirole Hcl 5 Mg Tablet 5 Mg PO QHS Vitals/I & O Vital Sign - Last 24 Hours 09/02/20 09/02/20 09/02/20 09/02/20 10:41 11:00 11:23 12:00 Pulse 86 84 Resp 28 B/P (MAP) 189/59 190/60 (103) Pulse Ox 95 95 O2 Delivery Ventilator Ventilator Mechanical Ventilator 09/02/20 09/02/20 09/02/20 09/02/20 12:00 13:00 14:00 15:00 Temp 102.9 102.9 Pulse 89 88 86 80 Resp 28 28 B/P (MAP) 133/56 (81) 92/62 (72) 86/46 (59) 88/46 (60) Pulse Ox 95 94 94 93 O2 Delivery Ventilator Ventilator Ventilator Ventilator 09/02/20 09/02/20 09/02/20 09/02/20 15:29 16:00 16:00 17:00 Temp 98.4 98.4 Pulse 78 77 Resp B/P (MAP) 100/51 (67) 100/48 (65) Pulse Ox 94 94 94 O2 Delivery Ventilator Ventilator Mechanical Ventilator Ventilator 09/02/20 09/02/20 09/02/20 09/02/20 17:49 18:00 18:19 19:00 Pulse 77 77 Resp 28 B/P (MAP) 107/54 (71) 98/48 (65) Pulse Ox 95 94 94 94 O2 Delivery Ventilator Ventilator Ventilator O2 Flow Rate 95.0 95.0 09/02/20 09/02/20 09/02/20 09/02/20 20:00 20:00 20:20 21:00 Temp 98.6 98.6 Pulse 77 77 Resp 28 B/P (MAP) 98/48 (65) 106/50 (68) Pulse Ox 94 94 95 O2 Delivery Ventilator Mechanical Ventilator Ventilator Ventilator 09/02/20 09/02/20 09/03/20 09/03/20 22:00 23:00 00:00 00:00 Temp 99.0 99.0 Pulse 73 70 71 Resp 28 28 28 B/P (MAP) 98/48 (65) 104/50 (68) 98/45 (62) Pulse Ox 95 94 94 O2 Delivery Ventilator Ventilator Mechanical Ventilator Ventilator 09/03/20 09/03/20 09/03/20 09/03/20 00:10 01:00 02:00 03:00 Pulse 70 71 71 Resp 28 28 28 B/P (MAP) 105/50 (68) 108/49 (68) 104/50 (68) Pulse Ox 94 93 93 93 O2 Delivery Ventilator Ventilator Ventilator Ventilator 09/03/20 09/03/20 09/03/20 09/03/20 04:00 04:00 04:10 05:00 Temp 98.1 98.1 Pulse 71 72 Resp 28 28 B/P (MAP) 107/49 (68) 108/47 (67) Pulse Ox 94 94 94 O2 Delivery Mechanical Ventilator Ventilator Ventilator Ventilator 09/03/20 09/03/20 09/03/20 09/03/20 06:00 07:20 07:25 08:00 Temp 98.0 98.0 Pulse 66 65 76 Resp 28 28 29 B/P (MAP) 103/51 (68) 100/44 (62) 119/42 (67) Pulse Ox 94 94 94 96 O2 Delivery Ventilator Ventilator Ventilator Ventilator 09/03/20 09/03/20 09/03/20 09/03/20 08:00 08:00 09:07 10:03 Pulse 76 74 Resp 29 29 B/P (MAP) 128/50 (76) 132/50 (77) Pulse Ox 95 94 O2 Delivery Mechanical Ventilator Ventilator Ventilator Intake and Output 09/02/20 09/02/20 09/03/20 15:00 23:00 07:00 Intake Total 100 ml 577 ml Output Total 500 ml 265 ml 135 ml Balance -400 ml 312 ml -135 ml Justicifation of Admission Dx: Justifications for Admission: Justification of Admission Dx: Yes Comminuty Aquired Pneumonia: Hypoxemia Chronic Renal Failure: Encephalopathy Sepsis: Hypoxemia LUIS TRIPLETT MD Sep 03, 2020 10:18
--- NOTE | 2020-09-03 11:45 | PDOC ---
PULMONARY PROGRESS NOTES DATE: 09/03/20 TIME: 11:44 Subjective intubated 09/01 now on vent at 100% and PEEP of 15 febrile overnight no other events Vitals Vital Signs Date Time Temp Pulse Resp B/P (MAP) Pulse Ox O2 Delivery O2 Flow Rate FiO2 09/03/20 11:20 94 Ventilator 09/03/20 11:11 99.2 80 29 125/51 (75) 99.2 09/02/20 18:19 95.0 Comments pt. seen during , visual exam preformed VENT RRR obese no accessory muscle use no rash/edema Labs Laboratory Tests Test 09/01/20 12:25 09/01/20 15:20 09/01/20 23:31 09/02/20 06:23 O2 Saturation 90 % (92-99) 93 % (92-99) Arterial Blood pH 7.28 (7.35-7.45) 7.30 (7.35-7.45) Arterial Blood pH (Temp corrected) 7.24 Arterial Blood pCO2 at Patient Temp 66 mmHg (35-46) 59 mmHg (35-46) Arterial Blood pCO2 (Temp correct) 74 mmHg Arterial Blood pO2 at Patient Temp 70 mmHg (75-108) 76 mmHg (75-108) Arterial Blood pO2 (Temp corrected) 83 mmHg Arterial Blood HCO3 30 mmol/L (21-28) 28 mmol/L (21-28) Arterial Blood Base Excess 2 mmol/L (-3-3) 1 mmol/L (-3-3) Oxyhemoglobin 89.6 % Methemoglobin 0.4 % (0.0-1.9) Carbon Monoxide, Quantitative 0.5 % (0.0-1.9) FiO2 100% + 14 peep 100% +15 peep Glucose (Fingerstick) 273 mg/dL (70-99) 170 mg/dL (70-99) Test 09/02/20 08:00 09/02/20 11:40 09/02/20 12:35 09/02/20 17:40 O2 Saturation 89 % (92-99) Arterial Blood pH 7.38 (7.35-7.45) Arterial Blood pCO2 at Patient Temp 54 mmHg (35-46) Arterial Blood pO2 at Patient Temp 57 mmHg (75-108) Arterial Blood HCO3 31 mmol/L (21-28) Arterial Blood Base Excess 5 mmol/L (-3-3) FiO2 100/vent Glucose (Fingerstick) 226 mg/dL (70-99) 259 mg/dL (70-99) White Blood Count 11.9 x10^3/uL (4.0-11.0) Red Blood Count 4.79 x10^6/uL (4.30-5.70) Hemoglobin 11.9 g/dL (13.0-17.5) Hematocrit 36.9 % (39.0-53.0) Mean Corpuscular Volume 77 fL (79-100) Mean Corpuscular Hemoglobin 25 pg (25-35) Mean Corpuscular Hemoglobin Concent 32 g/dL (31-37) Red Cell Distribution Width 15.0 % (11.5-14.5) Platelet Count 182 x10^3/uL (140-400) Neutrophils (%) (Auto) 95 % (31-73) Lymphocytes (%) (Auto) 1 % (24-48) Monocytes (%) (Auto) 2 % (0-9) Eosinophils (%) (Auto) 1 % (0-3) Basophils (%) (Auto) 0 % (0-3) Neutrophils # (Auto) 11.2 x10^3/uL (1.8-7.7) Lymphocytes # (Auto) 0.2 x10^3/uL (1.0-4.8) Monocytes # (Auto) 0.3 x10^3/uL (0.0-1.1) Eosinophils # (Auto) 0.2 x10^3/uL (0.0-0.7) Basophils # (Auto) 0.0 x10^3/uL (0.0-0.2) Sodium Level 138 mmol/L (136-145) Potassium Level 4.7 mmol/L (3.5-5.1) Chloride Level 103 mmol/L (98-107) Carbon Dioxide Level 30 mmol/L (21-32) Anion Gap 5 (6-14) Blood Urea Nitrogen 35 mg/dL (8-26) Creatinine 1.7 mg/dL (0.7-1.3) Estimated GFR (Cockcroft-Gault) 41.6 BUN/Creatinine Ratio 21 (6-20) Glucose Level 254 mg/dL (70-99) Calcium Level 8.3 mg/dL (8.5-10.1) Total Bilirubin 0.7 mg/dL (0.2-1.0) Aspartate Amino Transf (AST/SGOT) 165 U/L (15-37) Alanine Aminotransferase (ALT/SGPT) 87 U/L (16-63) Alkaline Phosphatase 206 U/L (46-116) Total Protein 6.2 g/dL (6.4-8.2) Albumin 1.8 g/dL (3.4-5.0) Albumin/Globulin Ratio 0.4 (1.0-1.7) Test 09/03/20 00:23 09/03/20 05:40 09/03/20 07:03 09/03/20 07:45 Glucose (Fingerstick) 263 mg/dL (70-99) 210 mg/dL (70-99) White Blood Count 11.0 x10^3/uL (4.0-11.0) Red Blood Count 4.36 x10^6/uL (4.30-5.70) Hemoglobin 11.0 g/dL (13.0-17.5) Hematocrit 33.4 % (39.0-53.0) Mean Corpuscular Volume 77 fL (79-100) Mean Corpuscular Hemoglobin 25 pg (25-35) Mean Corpuscular Hemoglobin Concent 33 g/dL (31-37) Red Cell Distribution Width 15.1 % (11.5-14.5) Platelet Count 192 x10^3/uL (140-400) Neutrophils (%) (Auto) 92 % (31-73) Lymphocytes (%) (Auto) 4 % (24-48) Monocytes (%) (Auto) 2 % (0-9) Eosinophils (%) (Auto) 1 % (0-3) Basophils (%) (Auto) 0 % (0-3) Neutrophils # (Auto) 10.1 x10^3/uL (1.8-7.7) Lymphocytes # (Auto) 0.4 x10^3/uL (1.0-4.8) Monocytes # (Auto) 0.3 x10^3/uL (0.0-1.1) Eosinophils # (Auto) 0.1 x10^3/uL (0.0-0.7) Basophils # (Auto) 0.0 x10^3/uL (0.0-0.2) Sodium Level 140 mmol/L (136-145) Potassium Level 4.6 mmol/L (3.5-5.1) Chloride Level 103 mmol/L (98-107) Carbon Dioxide Level 29 mmol/L (21-32) Anion Gap 8 (6-14) Blood Urea Nitrogen 59 mg/dL (8-26) Creatinine 3.2 mg/dL (0.7-1.3) Estimated GFR (Cockcroft-Gault) 20.1 Glucose Level 214 mg/dL (70-99) Calcium Level 8.1 mg/dL (8.5-10.1) O2 Saturation 90 % (92-99) Arterial Blood pH 7.34 (7.35-7.45) Arterial Blood pCO2 at Patient Temp 51 mmHg (35-46) Arterial Blood pO2 at Patient Temp 64 mmHg (75-108) Arterial Blood HCO3 27 mmol/L (21-28) Arterial Blood Base Excess 0 mmol/L (-3-3) FiO2 100/vent Laboratory Tests Test 09/02/20 12:35 09/02/20 17:40 09/03/20 00:23 09/03/20 05:40 White Blood Count 11.9 x10^3/uL (4.0-11.0) 11.0 x10^3/uL (4.0-11.0) Red Blood Count 4.79 x10^6/uL (4.30-5.70) 4.36 x10^6/uL (4.30-5.70) Hemoglobin 11.9 g/dL (13.0-17.5) 11.0 g/dL (13.0-17.5) Hematocrit 36.9 % (39.0-53.0) 33.4 % (39.0-53.0) Mean Corpuscular Volume 77 fL (79-100) 77 fL (79-100) Mean Corpuscular Hemoglobin 25 pg (25-35) 25 pg (25-35) Mean Corpuscular Hemoglobin Concent 32 g/dL (31-37) 33 g/dL (31-37) Red Cell Distribution Width 15.0 % (11.5-14.5) 15.1 % (11.5-14.5) Platelet Count 182 x10^3/uL (140-400) 192 x10^3/uL (140-400) Neutrophils (%) (Auto) 95 % (31-73) 92 % (31-73) Lymphocytes (%) (Auto) 1 % (24-48) 4 % (24-48) Monocytes (%) (Auto) 2 % (0-9) 2 % (0-9) Eosinophils (%) (Auto) 1 % (0-3) 1 % (0-3) Basophils (%) (Auto) 0 % (0-3) 0 % (0-3) Neutrophils # (Auto) 11.2 x10^3/uL (1.8-7.7) 10.1 x10^3/uL (1.8-7.7) Lymphocytes # (Auto) 0.2 x10^3/uL (1.0-4.8) 0.4 x10^3/uL (1.0-4.8) Monocytes # (Auto) 0.3 x10^3/uL (0.0-1.1) 0.3 x10^3/uL (0.0-1.1) Eosinophils # (Auto) 0.2 x10^3/uL (0.0-0.7) 0.1 x10^3/uL (0.0-0.7) Basophils # (Auto) 0.0 x10^3/uL (0.0-0.2) 0.0 x10^3/uL (0.0-0.2) Sodium Level 138 mmol/L (136-145) 140 mmol/L (136-145) Potassium Level 4.7 mmol/L (3.5-5.1) 4.6 mmol/L (3.5-5.1) Chloride Level 103 mmol/L (98-107) 103 mmol/L (98-107) Carbon Dioxide Level 30 mmol/L (21-32) 29 mmol/L (21-32) Anion Gap 5 (6-14) 8 (6-14) Blood Urea Nitrogen 35 mg/dL (8-26) 59 mg/dL (8-26) Creatinine 1.7 mg/dL (0.7-1.3) 3.2 mg/dL (0.7-1.3) Estimated GFR (Cockcroft-Gault) 41.6 20.1 BUN/Creatinine Ratio 21 (6-20) Glucose Level 254 mg/dL (70-99) 214 mg/dL (70-99) Calcium Level 8.3 mg/dL (8.5-10.1) 8.1 mg/dL (8.5-10.1) Total Bilirubin 0.7 mg/dL (0.2-1.0) Aspartate Amino Transf (AST/SGOT) 165 U/L (15-37) Alanine Aminotransferase (ALT/SGPT) 87 U/L (16-63) Alkaline Phosphatase 206 U/L (46-116) Total Protein 6.2 g/dL (6.4-8.2) Albumin 1.8 g/dL (3.4-5.0) Albumin/Globulin Ratio 0.4 (1.0-1.7) Glucose (Fingerstick) 259 mg/dL (70-99) 263 mg/dL (70-99) Test 09/03/20 07:03 09/03/20 07:45 Glucose (Fingerstick) 210 mg/dL (70-99) O2 Saturation 90 % (92-99) Arterial Blood pH 7.34 (7.35-7.45) Arterial Blood pCO2 at Patient Temp 51 mmHg (35-46) Arterial Blood pO2 at Patient Temp 64 mmHg (75-108) Arterial Blood HCO3 27 mmol/L (21-28) Arterial Blood Base Excess 0 mmol/L (-3-3) FiO2 100/vent Medications Active Scripts Medications Dose Route/Sig Max Daily Dose Days Date Category Dose Instructions [cholecalcif] 25 Mcg PO DAILY 08/31/20 Reported Capsaicin 42.5 Gm Cream..g. 1 Chris TP QID 08/31/20 Reported [albuterol 90MCG] 2 Puff INH QID 08/31/20 Reported Robaxin-750 (Methocarbamol) 750 Mg Tablet 1 Tab PO BID 30 08/31/20 Reported Indomethacin 50 Mg Capsule 1 Cap PO BID 10 08/31/20 Reported with food Omeprazole 20 Mg Tablet.dr 20 Mg PO DAILY 08/31/20 Reported Gabapentin 600 Mg Tablet 600 Mg PO BID 08/31/20 Reported Crestor (Rosuvastatin Calcium) 40 Mg Tablet 20 Mg PO HS 08/31/20 Reported Singulair Tablet (Montelukast Sodium) 10 Mg Tablet 10 Mg PO HS 08/31/20 Reported Metformin Hcl 850 Mg Tablet 850 Mg PO BIDWMEALS 08/31/20 Reported Losartan Potassium 100 Mg Tablet 100 Mg PO DAILY 08/31/20 Reported Lasix (Furosemide) 20 Mg Tablet 20 Mg PO DAILY 08/31/20 Reported Refresh Optive Eye Drops (Carboxymethylcellulos/Glycerin) 15 Ml Drops 1 Drop EACHEYE BID PRN 08/31/20 Reported Prednisone 20 Mg Tablet 10 Mg PO DAILY 08/31/20 Reported Ropinirole Hcl 5 Mg Tablet 5 Mg PO QHS 08/31/20 Reported Comments CXR 09/01 IMPRESSION: 1. Interval placement of right-sided internal jugular line with the tip projecting in the SVC. No pneumothorax. 2. Mild prominent bilateral interstitial and airspace opacities likely edema or infiltrates. Impression . IMPRESSION: 1. Acute hypoxemic respiratory failure. 2. COVID-19 viral pneumonia. 3. Fever secondary to above. 4. Elevated D-dimer secondary to above. 5. Recent CT angiogram negative for pulmonary embolism. 6. Morbid obesity. 7. Obstructive sleep apnea. 8. Diabetes. Plan . PLAN: Continue current vent support 100% and PEEP 15 Follow CXR/ABG-- no changes Consult nephrology for new NEELIMA -- follow recs Continue steroids for full 10 day course Continue Empiric ABX Pt. has completed full course of remdesivir continue TF for nutritional support DVT/GI PPX D/W RN and RT pt. is DNR Critical Care time 1000-1030AM INDRA YAÑEZ MD Sep 03, 2020 11:45
[2020-09-03] MEDS: cefTRIAXone IV Push 1 GM VIAL. IVP SCH (15:25)
--- NOTE | 2020-09-03 17:42 | NUR ---
Uneventful day for patient. Updated patient's and brother. Addendum: 09/03/20 at 1745 by MORGAN CORTEZ RN Consulted Dr. Mame Gayle per Dr. Kylie Aguilera/Gibran ORTEZ.
[2020-09-03] MEDS: IV NORMAL SALINE 1000ML BAG 1,000 ML IV SCH (19:15)
[2020-09-03] MEDS ORDERED: IV NORMAL SALINE 1000ML BAG 500 ML IV ONE (19:15)
[2020-09-03] MEDS ORDERED: MAGNESIUM SULFATE 2GM 50 ML IV PRN (19:30)
[2020-09-03 20:07] LABS: URIC ACID 6.2 mg/dL (3.5-7.2)
[2020-09-03] MEDS: ATORVASTATIN CALCIUM 40 MG TABLET. PO SCH (20:25)
[2020-09-03] MEDS: fentaNYL HIGH DOSE PCA 55 ML IV PRN (20:28)
--- NOTE | 2020-09-03 21:06 | RAD ---
Exam: Ultrasound renal complete Indication: Acute renal failure, CAD Technique: Real-time grayscale and color Doppler images of the kidneys were obtained by the [facility] air pollution control engineer. Comparisons: None FINDINGS: Right kidney measures 11.3 cm in length. No hydronephrosis. Left kidney measures 12.6 cm in length. No hydronephrosis. Bladder is decompressed not well seen. Visualized portions aorta and IVC are unremarkable. IMPRESSION: 1. No hydronephrosis. 2. Incidental note of diffuse hepatic steatosis. Electronically signed by: Phu Kennedy MD (09/03/2020 9:03 PM) [facility]
[2020-09-04] VITALS (25 sets, daily range): BP systolic 81–224; BP diastolic 36–74
[2020-09-04] MEDS: IV NORMAL SALINE 1000ML BAG 1,000 ML IV SCH ×2 (03:50→15:17)
[2020-09-04] MEDS: PROPOFOL 100 ML IV PRN ×3 (03:50→16:12)
[2020-09-04] MEDS: THIAMINE INJ 100 MG in IV DEXTROSE 5% 50 ML IV SCH ×3 (06:13→23:02)
[2020-09-04] MEDS: INSULIN LISPRO 300 UNITS/3 ML VIAL. SQ SCH ×3 (06:20→17:37)
[2020-09-04 07:06] LABS: BASO % 0 % (0-3); EOS # 0.1 x10^3/uL (0.0-0.7); EOS % 1 % (0-3); HEMATOCRIT 32.6 % (39.0-53.0); HEMOGLOBIN 10.4 g/dL (13.0-17.5); LYMPH # 0.4 x10^3/uL (1.0-4.8); LYMPH % 3 % (24-48); MEAN CORPUSCULAR HEMOGLOBIN 25 pg (25-35); MEAN CORPUSCULAR HGB CONC 32 g/dL (31-37); MEAN CORPUSCULAR VOLUME 78 fL (79-100); MONO # 0.4 x10^3/uL (0.0-1.1); MONO % 3 % (0-9); NEUT # 11.6 x10^3/uL (1.8-7.7); NEUT % 92 % (31-73); PLATELET COUNT 211 x10^3/uL (140-400); RED CELL DISTRIBUTION WIDTH 14.9 % (11.5-14.5); WHITE BLOOD COUNT 12.6 x10^3/uL (4.0-11.0)
[2020-09-04 07:26] LABS: ALBUMIN 1.4 g/dL (3.4-5.0); ALBUMIN/GLOBULIN RATIO 0.3 (1.0-1.7); CALCIUM 8.1 mg/dL (8.5-10.1); PHOSPHORUS 5.8 mg/dL (2.6-4.7); TOTAL BILIRUBIN 0.4 mg/dL (0.2-1.0); TOTAL PROTEIN 5.9 g/dL (6.4-8.2)
[2020-09-04 07:28] LABS: BILIRUBIN,URINE NEGATIVE (NEG); CLARITY,URINE TURBID; COLOR,URINE AMBER; NITRITE,URINE NEGATIVE (NEG); PROTEIN,URINE 30 mg/dL (NEG-TRACE); UROBILINOGEN,URINE 0.2 mg/dL (0.2 mg/dL)
--- NOTE | 2020-09-04 08:21 | PDOC ---
PULMONARY PROGRESS NOTES DATE: 09/04/20 TIME: 08:17 Subjective intubated 09/01 now on vent at 100% and PEEP of 15 worsening renal failure no other events overnight Vitals Vital Signs Date Time Temp Pulse Resp B/P (MAP) Pulse Ox O2 Delivery O2 Flow Rate FiO2 09/04/20 07:04 98.4 85 28 164/49 (87) 98 Ventilator 98.4 Comments pt. seen during id- pandemic, visual exam preformed VENT RRR obese no accessory muscle use no rash/edema Labs Laboratory Tests Test 09/02/20 11:40 09/02/20 12:35 09/02/20 17:40 09/03/20 00:23 Glucose (Fingerstick) 226 mg/dL (70-99) 259 mg/dL (70-99) 263 mg/dL (70-99) White Blood Count 11.9 x10^3/uL (4.0-11.0) Red Blood Count 4.79 x10^6/uL (4.30-5.70) Hemoglobin 11.9 g/dL (13.0-17.5) Hematocrit 36.9 % (39.0-53.0) Mean Corpuscular Volume 77 fL (79-100) Mean Corpuscular Hemoglobin 25 pg (25-35) Mean Corpuscular Hemoglobin Concent 32 g/dL (31-37) Red Cell Distribution Width 15.0 % (11.5-14.5) Platelet Count 182 x10^3/uL (140-400) Neutrophils (%) (Auto) 95 % (31-73) Lymphocytes (%) (Auto) 1 % (24-48) Monocytes (%) (Auto) 2 % (0-9) Eosinophils (%) (Auto) 1 % (0-3) Basophils (%) (Auto) 0 % (0-3) Neutrophils # (Auto) 11.2 x10^3/uL (1.8-7.7) Lymphocytes # (Auto) 0.2 x10^3/uL (1.0-4.8) Monocytes # (Auto) 0.3 x10^3/uL (0.0-1.1) Eosinophils # (Auto) 0.2 x10^3/uL (0.0-0.7) Basophils # (Auto) 0.0 x10^3/uL (0.0-0.2) Sodium Level 138 mmol/L (136-145) Potassium Level 4.7 mmol/L (3.5-5.1) Chloride Level 103 mmol/L (98-107) Carbon Dioxide Level 30 mmol/L (21-32) Anion Gap 5 (6-14) Blood Urea Nitrogen 35 mg/dL (8-26) Creatinine 1.7 mg/dL (0.7-1.3) Estimated GFR (Cockcroft-Gault) 41.6 BUN/Creatinine Ratio 21 (6-20) Glucose Level 254 mg/dL (70-99) Calcium Level 8.3 mg/dL (8.5-10.1) Total Bilirubin 0.7 mg/dL (0.2-1.0) Aspartate Amino Transf (AST/SGOT) 165 U/L (15-37) Alanine Aminotransferase (ALT/SGPT) 87 U/L (16-63) Alkaline Phosphatase 206 U/L (46-116) Total Protein 6.2 g/dL (6.4-8.2) Albumin 1.8 g/dL (3.4-5.0) Albumin/Globulin Ratio 0.4 (1.0-1.7) Test 09/03/20 05:40 09/03/20 07:03 09/03/20 07:45 09/03/20 12:13 White Blood Count 11.0 x10^3/uL (4.0-11.0) Red Blood Count 4.36 x10^6/uL (4.30-5.70) Hemoglobin 11.0 g/dL (13.0-17.5) Hematocrit 33.4 % (39.0-53.0) Mean Corpuscular Volume 77 fL (79-100) Mean Corpuscular Hemoglobin 25 pg (25-35) Mean Corpuscular Hemoglobin Concent 33 g/dL (31-37) Red Cell Distribution Width 15.1 % (11.5-14.5) Platelet Count 192 x10^3/uL (140-400) Neutrophils (%) (Auto) 92 % (31-73) Lymphocytes (%) (Auto) 4 % (24-48) Monocytes (%) (Auto) 2 % (0-9) Eosinophils (%) (Auto) 1 % (0-3) Basophils (%) (Auto) 0 % (0-3) Neutrophils # (Auto) 10.1 x10^3/uL (1.8-7.7) Lymphocytes # (Auto) 0.4 x10^3/uL (1.0-4.8) Monocytes # (Auto) 0.3 x10^3/uL (0.0-1.1) Eosinophils # (Auto) 0.1 x10^3/uL (0.0-0.7) Basophils # (Auto) 0.0 x10^3/uL (0.0-0.2) Sodium Level 140 mmol/L (136-145) Potassium Level 4.6 mmol/L (3.5-5.1) Chloride Level 103 mmol/L (98-107) Carbon Dioxide Level 29 mmol/L (21-32) Anion Gap 8 (6-14) Blood Urea Nitrogen 59 mg/dL (8-26) Creatinine 3.2 mg/dL (0.7-1.3) Estimated GFR (Cockcroft-Gault) 20.1 Glucose Level 214 mg/dL (70-99) Uric Acid 6.2 mg/dL (3.5-7.2) Calcium Level 8.1 mg/dL (8.5-10.1) Lactate Dehydrogenase 1616 U/L (85-227) Creatine Kinase 111 U/L (39-308) Glucose (Fingerstick) 210 mg/dL (70-99) 261 mg/dL (70-99) O2 Saturation 90 % (92-99) Arterial Blood pH 7.34 (7.35-7.45) Arterial Blood pCO2 at Patient Temp 51 mmHg (35-46) Arterial Blood pO2 at Patient Temp 64 mmHg (75-108) Arterial Blood HCO3 27 mmol/L (21-28) Arterial Blood Base Excess 0 mmol/L (-3-3) FiO2 100/vent Test 09/03/20 17:30 09/03/20 23:35 09/04/20 06:20 Glucose (Fingerstick) 257 mg/dL (70-99) 224 mg/dL (70-99) White Blood Count 12.6 x10^3/uL (4.0-11.0) Red Blood Count 4.20 x10^6/uL (4.30-5.70) Hemoglobin 10.4 g/dL (13.0-17.5) Hematocrit 32.6 % (39.0-53.0) Mean Corpuscular Volume 78 fL (79-100) Mean Corpuscular Hemoglobin 25 pg (25-35) Mean Corpuscular Hemoglobin Concent 32 g/dL (31-37) Red Cell Distribution Width 14.9 % (11.5-14.5) Platelet Count 211 x10^3/uL (140-400) Neutrophils (%) (Auto) 92 % (31-73) Lymphocytes (%) (Auto) 3 % (24-48) Monocytes (%) (Auto) 3 % (0-9) Eosinophils (%) (Auto) 1 % (0-3) Basophils (%) (Auto) 0 % (0-3) Neutrophils # (Auto) 11.6 x10^3/uL (1.8-7.7) Lymphocytes # (Auto) 0.4 x10^3/uL (1.0-4.8) Monocytes # (Auto) 0.4 x10^3/uL (0.0-1.1) Eosinophils # (Auto) 0.1 x10^3/uL (0.0-0.7) Basophils # (Auto) 0.0 x10^3/uL (0.0-0.2) Sodium Level 134 mmol/L (136-145) Potassium Level 5.0 mmol/L (3.5-5.1) Chloride Level 101 mmol/L (98-107) Carbon Dioxide Level 24 mmol/L (21-32) Anion Gap 9 (6-14) Blood Urea Nitrogen 85 mg/dL (8-26) Creatinine 5.0 mg/dL (0.7-1.3) Estimated GFR (Cockcroft-Gault) 12.0 BUN/Creatinine Ratio 17 (6-20) Glucose Level 205 mg/dL (70-99) Calcium Level 8.1 mg/dL (8.5-10.1) Phosphorus Level 5.8 mg/dL (2.6-4.7) Magnesium Level 3.4 mg/dL (1.8-2.4) Total Bilirubin 0.4 mg/dL (0.2-1.0) Aspartate Amino Transf (AST/SGOT) 96 U/L (15-37) Alanine Aminotransferase (ALT/SGPT) 66 U/L (16-63) Alkaline Phosphatase 145 U/L (46-116) Total Protein 5.9 g/dL (6.4-8.2) Albumin 1.4 g/dL (3.4-5.0) Albumin/Globulin Ratio 0.3 (1.0-1.7) Laboratory Tests Test 09/03/20 12:13 09/03/20 17:30 09/03/20 23:35 09/04/20 06:20 Glucose (Fingerstick) 261 mg/dL (70-99) 257 mg/dL (70-99) 224 mg/dL (70-99) White Blood Count 12.6 x10^3/uL (4.0-11.0) Red Blood Count 4.20 x10^6/uL (4.30-5.70) Hemoglobin 10.4 g/dL (13.0-17.5) Hematocrit 32.6 % (39.0-53.0) Mean Corpuscular Volume 78 fL (79-100) Mean Corpuscular Hemoglobin 25 pg (25-35) Mean Corpuscular Hemoglobin Concent 32 g/dL (31-37) Red Cell Distribution Width 14.9 % (11.5-14.5) Platelet Count 211 x10^3/uL (140-400) Neutrophils (%) (Auto) 92 % (31-73) Lymphocytes (%) (Auto) 3 % (24-48) Monocytes (%) (Auto) 3 % (0-9) Eosinophils (%) (Auto) 1 % (0-3) Basophils (%) (Auto) 0 % (0-3) Neutrophils # (Auto) 11.6 x10^3/uL (1.8-7.7) Lymphocytes # (Auto) 0.4 x10^3/uL (1.0-4.8) Monocytes # (Auto) 0.4 x10^3/uL (0.0-1.1) Eosinophils # (Auto) 0.1 x10^3/uL (0.0-0.7) Basophils # (Auto) 0.0 x10^3/uL (0.0-0.2) Sodium Level 134 mmol/L (136-145) Potassium Level 5.0 mmol/L (3.5-5.1) Chloride Level 101 mmol/L (98-107) Carbon Dioxide Level 24 mmol/L (21-32) Anion Gap 9 (6-14) Blood Urea Nitrogen 85 mg/dL (8-26) Creatinine 5.0 mg/dL (0.7-1.3) Estimated GFR (Cockcroft-Gault) 12.0 BUN/Creatinine Ratio 17 (6-20) Glucose Level 205 mg/dL (70-99) Calcium Level 8.1 mg/dL (8.5-10.1) Phosphorus Level 5.8 mg/dL (2.6-4.7) Magnesium Level 3.4 mg/dL (1.8-2.4) Total Bilirubin 0.4 mg/dL (0.2-1.0) Aspartate Amino Transf (AST/SGOT) 96 U/L (15-37) Alanine Aminotransferase (ALT/SGPT) 66 U/L (16-63) Alkaline Phosphatase 145 U/L (46-116) Total Protein 5.9 g/dL (6.4-8.2) Albumin 1.4 g/dL (3.4-5.0) Albumin/Globulin Ratio 0.3 (1.0-1.7) Medications Active Scripts Medications Dose Route/Sig Max Daily Dose Days Date Category Dose Instructions [cholecalcif] 25 Mcg PO DAILY 08/31/20 Reported Capsaicin 42.5 Gm Cream..g. 1 Chris TP QID 08/31/20 Reported [albuterol 90MCG] 2 Puff INH QID 08/31/20 Reported Robaxin-750 (Methocarbamol) 750 Mg Tablet 1 Tab PO BID 30 08/31/20 Reported Indomethacin 50 Mg Capsule 1 Cap PO BID 10 08/31/20 Reported with food Omeprazole 20 Mg Tablet.dr 20 Mg PO DAILY 08/31/20 Reported Gabapentin 600 Mg Tablet 600 Mg PO BID 08/31/20 Reported Crestor (Rosuvastatin Calcium) 40 Mg Tablet 20 Mg PO HS 08/31/20 Reported Singulair Tablet (Montelukast Sodium) 10 Mg Tablet 10 Mg PO HS 08/31/20 Reported Metformin Hcl 850 Mg Tablet 850 Mg PO BIDWMEALS 08/31/20 Reported Losartan Potassium 100 Mg Tablet 100 Mg PO DAILY 08/31/20 Reported Lasix (Furosemide) 20 Mg Tablet 20 Mg PO DAILY 08/31/20 Reported Refresh Optive Eye Drops (Carboxymethylcellulos/Glycerin) 15 Ml Drops 1 Drop EACHEYE BID PRN 08/31/20 Reported Prednisone 20 Mg Tablet 10 Mg PO DAILY 08/31/20 Reported Ropinirole Hcl 5 Mg Tablet 5 Mg PO QHS 08/31/20 Reported Comments CXR 09/01 IMPRESSION: 1. Interval placement of right-sided internal jugular line with the tip projecting in the SVC. No pneumothorax. 2. Mild prominent bilateral interstitial and airspace opacities likely edema or infiltrates. Impression . IMPRESSION: 1. Acute hypoxemic respiratory failure. 2. COVID-19 viral pneumonia. 3. Fever secondary to above. 4. Elevated D-dimer secondary to above. 5. Recent CT angiogram negative for pulmonary embolism. 6. Morbid obesity. 7. Obstructive sleep apnea. 8. Diabetes. Plan . PLAN: Continue current vent support 100% Follow CXR/ABG--reduce PEEP to 13 and Tidal Volume to 550 today Follow nephrology recs, worsening renal function, monitor Continue steroids for full 10 day course, started 09/01 Continue Empiric ABX: Doxy and rocephin Pt. has completed full course of remdesivir Continue TF for nutritional support DVT/GI PPX D/W RN and RT pt. is DNR Critical Care time 0900-0930AM INDRA YAÑEZ MD Sep 04, 2020 08:21
[2020-09-04 08:23] LABS: AMORPHOUS SEDIMENT,UR PRESENT /HPF; BACTERIA,URINE FEW /HPF (0-FEW); GRANULAR CASTS,URINE OCCASIONAL /HPF; HYALINE CASTS, URINE FEW /HPF; RBC,URINE 20-40 /HPF (0-2)
[2020-09-04] MEDS: INSULIN GLARGINE SYRINGE. SQ SCH (09:26)
[2020-09-04] MEDS: FUROSEMIDE 20 MG/2 ML VIAL. IVP SCH (09:27)
[2020-09-04] MEDS: DOXYCYCLINE HYCLATE 100 MG in IV DEXTROSE 5% 100ML 100 ML IV SCH ×2 (09:27→23:03)
[2020-09-04] MEDS: CHOLECALCIFEROL (VITAMIN D3) 1,000 UNIT TABLET PO SCH (09:27)
[2020-09-04] MEDS: ENOXAPARIN 40 MG/0.4 ML SYRINGE. SQ SCH ×2 (09:27→23:04)
[2020-09-04] MEDS: ASCORBIC ACID 1,000 MG TABLET PO SCH ×3 (09:27→23:03)
[2020-09-04] MEDS: PANTOPRAZOLE IV PUSH 40 MG VIAL. IVP SCH (09:28)
[2020-09-04] MEDS: DEXAMETHASONE SOD PHOS 4 MG/ML VIAL IVP SCH (09:28)
[2020-09-04] MEDS: GABAPENTIN 300 MG CAPSULE. PO SCH ×2 (09:29→23:03)
[2020-09-04 10:18] LABS: BASE EXCESS ABG -2 mmol/L (-3-3); HCO3 ABG 26 mmol/L (21-28); PCO2 ABG 58 mmHg (35-46); PO2 ABG 55 mmHg (75-108); SAT O2 ABG 85 % (92-99)
--- NOTE | 2020-09-04 10:25 | PDOC ---
PROGRESS NOTES Date of Service: DATE: 09/04/20 TIME: 10:25 Chief Complaint Chief Complaint Images: Images Negative CT of the chest done Sunday at the [facility] Pending chest x-ray Assessment/Plan Assessment/Plan Acute hypoxic respiratory failure due to COVID-19 infection requiring BiPAP support Diabetes mellitus Morbid obesity intubated 09/01 now on vent at 100% and PEEP of 15 febrile overnight PLAN Admit to ICU for close respiratory monitoring Pulmonology consult vent at 100% and PEEP of 15 Continue IV dexamethasone 6 mg daily Lovenox twice daily for DVT prophylaxis Protonix while on steroids GI prophylaxis ADA diet Full code Discussed with RN Disposition inpatient management as above Surrogate decision maker is the PCXR 33 minutes of critical care time Justifications for Admission Justifications for Admission Other Justification Acute respiratory failure due to COVID History of Present Illness History of Present Illness Chief Complaint: Chief Complain: COVID pneumonia History of Present Illness: HPI: History obtained from patient and transferring physician Dr. Ramos from the [facility] Patient is a 60-year-old male with past medical history of insulin dependent diabetes mellitus, morbid obesity, MARGARITO who was transferred due to acute respiratory failure due to COVID-19 infection. Patient was tested positive for Covid on 08/25/2020 patient was treated with IV remdesivir and Decadron he did finish 5 days of IV antibiotics and has still continued to be fever with a T-max of 101 F. He was tested for procalcitonin and it was been negative x2. Patient was initially placed on nasal cannula at and transition to Vapotherm and he needed to go up on his requirements to 40 L and he has been on BiPAP now 100% FiO2 for the past 2 days. Patient's D-dimer was also elevated and a chest CTA was ordered which was negative, this was done on Sunday. The reason for the transfer is to have a pulmonology specialist to oversee their care. [facility] physician has attempted to transfer to [facility] but the beds are full at this time. Currently the patient denies any respiratory distress he is currently saturating 100% on FiO2 of 100% BiPAP in the ICU. Currently denies fevers, chest pain, abdominal pain, diarrhea, dysuria, or hemoptysis. Past Medical/Surgical History: PMH/PSH: DM insulin dependent, CAD, HTN MARGARITO- compliant with CPAP Morbid Obesity Hx of LBBB Allergies: Allergies: Coded Allergies: flunisolide (Verified Adverse Reaction, Mild, insufficient response, 08/31/20) lisinopril (Verified Adverse Reaction, Mild, cough, 08/31/20) Family History: Family History: Reviewed with no relevant findings Social History: Social History: Denies alcohol, tobacco, drug abuse Current Medications: Current Medications Vitals Vitals Vital Signs Date Time Temp Pulse Resp B/P (MAP) Pulse Ox O2 Delivery O2 Flow Rate FiO2 09/04/20 08:00 09/04/20 08:00 Mechanical Ventilator 09/04/20 07:04 98.4 85 28 98 98.4 Physical Exam Physical Exam Physcial Exam: GEN: No apparent distress. sedated on vent HEENT: Normal cephalic, atraumatic, external auditory canals are patent EYES: Extraocular muscles are intact, pupil are equally round and reactive to light and accommodation MUSCULOSKELETAL: Well developed , well nourished, good range of motion ENDOCRINE: No thyromegaly was palpated LYMPHATICS: No cervical chain or axillary nodes were noted HEMATOPOIETIC: No bruising NECK: Supple, no JVD, no thyromegaly was noted LUNGS: Clear to auscultation in all lung snyder without rhonchi or wheezing HEART: RRR, S!, S2 present. Peripheral pulses intact, no obvious murmurs noted ABDOMEN: Soft, nontender. Positive bowel sounds, no organomegaly, normal bowel sounds EXTREMITIES: Without clubbing, cyanosis, or edema. Pedal pulses intact. Negative Homans sign NEUROLOGIC: no obvious focal deficits SKIN: No ulcerations or rashes, good skin turgor, no jaundice VASCULAR: Good capillary refill, neurovascular bundle appears to be intact General: Cooperative Extremities: No cyanosis Labs LABS Laboratory Tests Test 09/03/20 12:13 09/03/20 17:30 09/03/20 23:35 09/04/20 06:20 Glucose (Fingerstick) 261 mg/dL (70-99) 257 mg/dL (70-99) 224 mg/dL (70-99) White Blood Count 12.6 x10^3/uL (4.0-11.0) Red Blood Count 4.20 x10^6/uL (4.30-5.70) Hemoglobin 10.4 g/dL (13.0-17.5) Hematocrit 32.6 % (39.0-53.0) Mean Corpuscular Volume 78 fL (79-100) Mean Corpuscular Hemoglobin 25 pg (25-35) Mean Corpuscular Hemoglobin Concent 32 g/dL (31-37) Red Cell Distribution Width 14.9 % (11.5-14.5) Platelet Count 211 x10^3/uL (140-400) Neutrophils (%) (Auto) 92 % (31-73) Lymphocytes (%) (Auto) 3 % (24-48) Monocytes (%) (Auto) 3 % (0-9) Eosinophils (%) (Auto) 1 % (0-3) Basophils (%) (Auto) 0 % (0-3) Neutrophils # (Auto) 11.6 x10^3/uL (1.8-7.7) Lymphocytes # (Auto) 0.4 x10^3/uL (1.0-4.8) Monocytes # (Auto) 0.4 x10^3/uL (0.0-1.1) Eosinophils # (Auto) 0.1 x10^3/uL (0.0-0.7) Basophils # (Auto) 0.0 x10^3/uL (0.0-0.2) Sodium Level 134 mmol/L (136-145) Potassium Level 5.0 mmol/L (3.5-5.1) Chloride Level 101 mmol/L (98-107) Carbon Dioxide Level 24 mmol/L (21-32) Anion Gap 9 (6-14) Blood Urea Nitrogen 85 mg/dL (8-26) Creatinine 5.0 mg/dL (0.7-1.3) Estimated GFR (Cockcroft-Gault) 12.0 BUN/Creatinine Ratio 17 (6-20) Glucose Level 205 mg/dL (70-99) Calcium Level 8.1 mg/dL (8.5-10.1) Phosphorus Level 5.8 mg/dL (2.6-4.7) Magnesium Level 3.4 mg/dL (1.8-2.4) Total Bilirubin 0.4 mg/dL (0.2-1.0) Aspartate Amino Transf (AST/SGOT) 96 U/L (15-37) Alanine Aminotransferase (ALT/SGPT) 66 U/L (16-63) Alkaline Phosphatase 145 U/L (46-116) Total Protein 5.9 g/dL (6.4-8.2) Albumin 1.4 g/dL (3.4-5.0) Albumin/Globulin Ratio 0.3 (1.0-1.7) Test 09/04/20 07:15 Urine Collection Type Unknown Urine Color Urine Clarity Turbid Urine pH 5.0 (<5.0-8.0) Urine Specific [place] 1.020 (1.000-1.030) Urine Protein 30 mg/dL (NEG-TRACE) Urine Glucose (UA) Negative mg/dL (NEG) Urine Ketones (Stick) Negative mg/dL (NEG) Urine Blood Large (NEG) Urine Nitrite Negative (NEG) Urine Bilirubin Negative (NEG) Urine Urobilinogen Dipstick 0.2 mg/dL (0.2 mg/dL) Urine Leukocyte Esterase Small (NEG) Urine RBC 20-40 /HPF (0-2) Urine WBC 1-4 /HPF (0-4) Urine Squamous Epithelial Cells Few /LPF Urine Amorphous Sediment Present /HPF Urine Bacteria Few /HPF (0-FEW) Urine Hyaline Casts Few /HPF Urine Granular Casts Occasional /HPF Comment Review of Relevant I have reviewed the following items lexa (where applicable) has been applied. Labs Laboratory Tests Test 09/02/20 11:40 09/02/20 12:35 09/02/20 17:40 09/03/20 00:23 Glucose (Fingerstick) 226 mg/dL (70-99) 259 mg/dL (70-99) 263 mg/dL (70-99) White Blood Count 11.9 x10^3/uL (4.0-11.0) Red Blood Count 4.79 x10^6/uL (4.30-5.70) Hemoglobin 11.9 g/dL (13.0-17.5) Hematocrit 36.9 % (39.0-53.0) Mean Corpuscular Volume 77 fL (79-100) Mean Corpuscular Hemoglobin 25 pg (25-35) Mean Corpuscular Hemoglobin Concent 32 g/dL (31-37) Red Cell Distribution Width 15.0 % (11.5-14.5) Platelet Count 182 x10^3/uL (140-400) Neutrophils (%) (Auto) 95 % (31-73) Lymphocytes (%) (Auto) 1 % (24-48) Monocytes (%) (Auto) 2 % (0-9) Eosinophils (%) (Auto) 1 % (0-3) Basophils (%) (Auto) 0 % (0-3) Neutrophils # (Auto) 11.2 x10^3/uL (1.8-7.7) Lymphocytes # (Auto) 0.2 x10^3/uL (1.0-4.8) Monocytes # (Auto) 0.3 x10^3/uL (0.0-1.1) Eosinophils # (Auto) 0.2 x10^3/uL (0.0-0.7) Basophils # (Auto) 0.0 x10^3/uL (0.0-0.2) Sodium Level 138 mmol/L (136-145) Potassium Level 4.7 mmol/L (3.5-5.1) Chloride Level 103 mmol/L (98-107) Carbon Dioxide Level 30 mmol/L (21-32) Anion Gap 5 (6-14) Blood Urea Nitrogen 35 mg/dL (8-26) Creatinine 1.7 mg/dL (0.7-1.3) Estimated GFR (Cockcroft-Gault) 41.6 BUN/Creatinine Ratio 21 (6-20) Glucose Level 254 mg/dL (70-99) Calcium Level 8.3 mg/dL (8.5-10.1) Total Bilirubin 0.7 mg/dL (0.2-1.0) Aspartate Amino Transf (AST/SGOT) 165 U/L (15-37) Alanine Aminotransferase (ALT/SGPT) 87 U/L (16-63) Alkaline Phosphatase 206 U/L (46-116) Total Protein 6.2 g/dL (6.4-8.2) Albumin 1.8 g/dL (3.4-5.0) Albumin/Globulin Ratio 0.4 (1.0-1.7) Test 09/03/20 05:40 09/03/20 07:03 09/03/20 07:45 09/03/20 12:13 White Blood Count 11.0 x10^3/uL (4.0-11.0) Red Blood Count 4.36 x10^6/uL (4.30-5.70) Hemoglobin 11.0 g/dL (13.0-17.5) Hematocrit 33.4 % (39.0-53.0) Mean Corpuscular Volume 77 fL (79-100) Mean Corpuscular Hemoglobin 25 pg (25-35) Mean Corpuscular Hemoglobin Concent 33 g/dL (31-37) Red Cell Distribution Width 15.1 % (11.5-14.5) Platelet Count 192 x10^3/uL (140-400) Neutrophils (%) (Auto) 92 % (31-73) Lymphocytes (%) (Auto) 4 % (24-48) Monocytes (%) (Auto) 2 % (0-9) Eosinophils (%) (Auto) 1 % (0-3) Basophils (%) (Auto) 0 % (0-3) Neutrophils # (Auto) 10.1 x10^3/uL (1.8-7.7) Lymphocytes # (Auto) 0.4 x10^3/uL (1.0-4.8) Monocytes # (Auto) 0.3 x10^3/uL (0.0-1.1) Eosinophils # (Auto) 0.1 x10^3/uL (0.0-0.7) Basophils # (Auto) 0.0 x10^3/uL (0.0-0.2) Sodium Level 140 mmol/L (136-145) Potassium Level 4.6 mmol/L (3.5-5.1) Chloride Level 103 mmol/L (98-107) Carbon Dioxide Level 29 mmol/L (21-32) Anion Gap 8 (6-14) Blood Urea Nitrogen 59 mg/dL (8-26) Creatinine 3.2 mg/dL (0.7-1.3) Estimated GFR (Cockcroft-Gault) 20.1 Glucose Level 214 mg/dL (70-99) Uric Acid 6.2 mg/dL (3.5-7.2) Calcium Level 8.1 mg/dL (8.5-10.1) Lactate Dehydrogenase 1616 U/L (85-227) Creatine Kinase 111 U/L (39-308) Glucose (Fingerstick) 210 mg/dL (70-99) 261 mg/dL (70-99) O2 Saturation 90 % (92-99) Arterial Blood pH 7.34 (7.35-7.45) Arterial Blood pCO2 at Patient Temp 51 mmHg (35-46) Arterial Blood pO2 at Patient Temp 64 mmHg (75-108) Arterial Blood HCO3 27 mmol/L (21-28) Arterial Blood Base Excess 0 mmol/L (-3-3) FiO2 100/vent Test 09/03/20 17:30 09/03/20 23:35 09/04/20 06:20 09/04/20 07:15 Glucose (Fingerstick) 257 mg/dL (70-99) 224 mg/dL (70-99) White Blood Count 12.6 x10^3/uL (4.0-11.0) Red Blood Count 4.20 x10^6/uL (4.30-5.70) Hemoglobin 10.4 g/dL (13.0-17.5) Hematocrit 32.6 % (39.0-53.0) Mean Corpuscular Volume 78 fL (79-100) Mean Corpuscular Hemoglobin 25 pg (25-35) Mean Corpuscular Hemoglobin Concent 32 g/dL (31-37) Red Cell Distribution Width 14.9 % (11.5-14.5) Platelet Count 211 x10^3/uL (140-400) Neutrophils (%) (Auto) 92 % (31-73) Lymphocytes (%) (Auto) 3 % (24-48) Monocytes (%) (Auto) 3 % (0-9) Eosinophils (%) (Auto) 1 % (0-3) Basophils (%) (Auto) 0 % (0-3) Neutrophils # (Auto) 11.6 x10^3/uL (1.8-7.7) Lymphocytes # (Auto) 0.4 x10^3/uL (1.0-4.8) Monocytes # (Auto) 0.4 x10^3/uL (0.0-1.1) Eosinophils # (Auto) 0.1 x10^3/uL (0.0-0.7) Basophils # (Auto) 0.0 x10^3/uL (0.0-0.2) Sodium Level 134 mmol/L (136-145) Potassium Level 5.0 mmol/L (3.5-5.1) Chloride Level 101 mmol/L (98-107) Carbon Dioxide Level 24 mmol/L (21-32) Anion Gap 9 (6-14) Blood Urea Nitrogen 85 mg/dL (8-26) Creatinine 5.0 mg/dL (0.7-1.3) Estimated GFR (Cockcroft-Gault) 12.0 BUN/Creatinine Ratio 17 (6-20) Glucose Level 205 mg/dL (70-99) Calcium Level 8.1 mg/dL (8.5-10.1) Phosphorus Level 5.8 mg/dL (2.6-4.7) Magnesium Level 3.4 mg/dL (1.8-2.4) Total Bilirubin 0.4 mg/dL (0.2-1.0) Aspartate Amino Transf (AST/SGOT) 96 U/L (15-37) Alanine Aminotransferase (ALT/SGPT) 66 U/L (16-63) Alkaline Phosphatase 145 U/L (46-116) Total Protein 5.9 g/dL (6.4-8.2) Albumin 1.4 g/dL (3.4-5.0) Albumin/Globulin Ratio 0.3 (1.0-1.7) Urine Collection Type Unknown Urine Color Urine Clarity Turbid Urine pH 5.0 (<5.0-8.0) Urine Specific [place] 1.020 (1.000-1.030) Urine Protein 30 mg/dL (NEG-TRACE) Urine Glucose (UA) Negative mg/dL (NEG) Urine Ketones (Stick) Negative mg/dL (NEG) Urine Blood Large (NEG) Urine Nitrite Negative (NEG) Urine Bilirubin Negative (NEG) Urine Urobilinogen Dipstick 0.2 mg/dL (0.2 mg/dL) Urine Leukocyte Esterase Small (NEG) Urine RBC 20-40 /HPF (0-2) Urine WBC 1-4 /HPF (0-4) Urine Squamous Epithelial Cells Few /LPF Urine Amorphous Sediment Present /HPF Urine Bacteria Few /HPF (0-FEW) Urine Hyaline Casts Few /HPF Urine Granular Casts Occasional /HPF Laboratory Tests Test 09/03/20 12:13 09/03/20 17:30 09/03/20 23:35 09/04/20 06:20 Glucose (Fingerstick) 261 mg/dL (70-99) 257 mg/dL (70-99) 224 mg/dL (70-99) White Blood Count 12.6 x10^3/uL (4.0-11.0) Red Blood Count 4.20 x10^6/uL (4.30-5.70) Hemoglobin 10.4 g/dL (13.0-17.5) Hematocrit 32.6 % (39.0-53.0) Mean Corpuscular Volume 78 fL (79-100) Mean Corpuscular Hemoglobin 25 pg (25-35) Mean Corpuscular Hemoglobin Concent 32 g/dL (31-37) Red Cell Distribution Width 14.9 % (11.5-14.5) Platelet Count 211 x10^3/uL (140-400) Neutrophils (%) (Auto) 92 % (31-73) Lymphocytes (%) (Auto) 3 % (24-48) Monocytes (%) (Auto) 3 % (0-9) Eosinophils (%) (Auto) 1 % (0-3) Basophils (%) (Auto) 0 % (0-3) Neutrophils # (Auto) 11.6 x10^3/uL (1.8-7.7) Lymphocytes # (Auto) 0.4 x10^3/uL (1.0-4.8) Monocytes # (Auto) 0.4 x10^3/uL (0.0-1.1) Eosinophils # (Auto) 0.1 x10^3/uL (0.0-0.7) Basophils # (Auto) 0.0 x10^3/uL (0.0-0.2) Sodium Level 134 mmol/L (136-145) Potassium Level 5.0 mmol/L (3.5-5.1) Chloride Level 101 mmol/L (98-107) Carbon Dioxide Level 24 mmol/L (21-32) Anion Gap 9 (6-14) Blood Urea Nitrogen 85 mg/dL (8-26) Creatinine 5.0 mg/dL (0.7-1.3) Estimated GFR (Cockcroft-Gault) 12.0 BUN/Creatinine Ratio 17 (6-20) Glucose Level 205 mg/dL (70-99) Calcium Level 8.1 mg/dL (8.5-10.1) Phosphorus Level 5.8 mg/dL (2.6-4.7) Magnesium Level 3.4 mg/dL (1.8-2.4) Total Bilirubin 0.4 mg/dL (0.2-1.0) Aspartate Amino Transf (AST/SGOT) 96 U/L (15-37) Alanine Aminotransferase (ALT/SGPT) 66 U/L (16-63) Alkaline Phosphatase 145 U/L (46-116) Total Protein 5.9 g/dL (6.4-8.2) Albumin 1.4 g/dL (3.4-5.0) Albumin/Globulin Ratio 0.3 (1.0-1.7) Test 09/04/20 07:15 Urine Collection Type Unknown Urine Color Urine Clarity Turbid Urine pH 5.0 (<5.0-8.0) Urine Specific [place] 1.020 (1.000-1.030) Urine Protein 30 mg/dL (NEG-TRACE) Urine Glucose (UA) Negative mg/dL (NEG) Urine Ketones (Stick) Negative mg/dL (NEG) Urine Blood Large (NEG) Urine Nitrite Negative (NEG) Urine Bilirubin Negative (NEG) Urine Urobilinogen Dipstick 0.2 mg/dL (0.2 mg/dL) Urine Leukocyte Esterase Small (NEG) Urine RBC 20-40 /HPF (0-2) Urine WBC 1-4 /HPF (0-4) Urine Squamous Epithelial Cells Few /LPF Urine Amorphous Sediment Present /HPF Urine Bacteria Few /HPF (0-FEW) Urine Hyaline Casts Few /HPF Urine Granular Casts Occasional /HPF Medications Current Medications Sennosides (Senna) 17.2 mg PRN BID PRN PO CONSTIPATION; Start 08/31/20 at 18 :15 Docusate Sodium (Colace) 100 mg PRN DAILY PRN PO HARD STOOLS; Start 08/31/20 at 18:15 Ondansetron HCl (Zofran) 4 mg PRN Q6HRS PRN IVP NAUSEA/VOMITING; Start 08/31/20 at 18:15 Insulin Human Lispro (HumaLOG) 0-9 UNITS TIDWMEALS SQ ; Start 09/01/20 at 08:00; Stop 09/01/20 at 17:13; Status DC Dextrose (Dextrose 50%-Water Syringe) 12.5 gm PRN Q15MIN PRN IV SEE COMMENTS; Start 08/31/20 at 18:15 Enoxaparin Sodium (Lovenox 40mg Syringe) 40 mg Q24H SQ ; Start 08/31/20 at 21:00; Stop 08/31/20 at 18:36; Status DC Pantoprazole Sodium (PROTONIX VIAL for IV PUSH) 40 mg DAILYAC IVP Last administered on 09/04/20 09:28; Start 09/01/20 at 07:30 Enoxaparin Sodium (Lovenox 40mg Syringe) 40 mg BID SQ Last administered on 09/04/20 09:27; Start 08/31/20 at 21:00 Dexamethasone Sodium Phosphate (Decadron) 6 mg DAILY IVP Last administered on 09/04/20 09:28; Start 09/01/20 at 09:00 Ascorbic Acid (Vitamin C) 3,000 mg TID PO Last administered on 09/04/20 09:27; Start 08/31/20 at 21:00 Thiamine HCl 100 mg/Dextrose 51 ml @ 102 mls/hr Q8HRS IV Last administered on 09/04/20 06:13; Start 08/31/20 at 22:00 Insulin Glargine (Lantus Syringe) 40 unit DAILY SQ Last administered on 09/04/20 09:26; Start 09/01/20 at 09:00 Furosemide (Lasix) 20 mg DAILY PO ; Start 09/01/20 at 09:00; Stop 09/01/20 at 10:06; Status DC Metformin HCl (Glucophage) 850 mg BIDWMEALS PO ; Start 09/01/20 at 08:00; Stop 09/01/20 at 17:13; Status DC Methocarbamol (Robaxin) 750 mg BID PO Last administered on 08/31/20at 21:01; Start 08/31/20 at 21:00; Stop 09/01/20 at 17:13; Status DC Montelukast Sodium (Singulair) 10 mg HS PO Last administered on 08/31/20at 20:05; Start 08/31/20 at 21:00; Stop 09/01/20 at 17:13; Status DC Capsaicin (Zostrix) 1 chris QID TP Last administered on 08/31/20at 21:02; Start 08/31/20 at 21:00; Stop 09/01/20 at 17:13; Status DC Glycerin/ Hypromellose/ Polyethylene (Artificial Tears) 1 drop PRN BID PRN OU DRY EYE; Start 08/31/20 at 19:45; Stop 09/01/20 at 10:49; Status DC Gabapentin (Neurontin) 600 mg BID PO Last administered on 09/04/20at 09:29; Start 08/31/20 at 21:00 Indomethacin (Indocin) 50 mg BIDWMEALS PO Last administered on 08/31/20at 21:02; Start 08/31/20 at 21:00; Stop 09/01/20 at 17:13; Status DC Losartan Potassium (Cozaar) 100 mg DAILY PO ; Start 09/01/20 at 09:00; Stop 09/01/20 at 10:06; Status DC Non-Formulary Medication (Omeprazole ) 20 mg DAILY PO ; Start 09/01/20 at 09:00; Status UNV Ropinirole HCl (Requip) 5 mg QHS PO Last administered on 08/31/20at 20:06; Start 08/31/20 at 21:00; Stop 09/01/20 at 17:13; Status DC Atorvastatin Calcium (Lipitor) 80 mg QHS PO Last administered on 09/03/20at 20:25; Start 08/31/20 at 21:00 Vitamin D (Vitamin D3) 1,000 unit DAILY PO Last administered on 09/04/20 09:27; Start 09/01/20 at 09:00 Labetalol HCl (Normodyne Iv Push) 10 mg TID PRN PRN IVP SBP>180 Last administered on 09/02/20at 08:06; Start 08/31/20 at 21:45 Lorazepam (Ativan) 0.25 mg PRN Q6HRS PRN PO ANXIETY / AGITATION; Start 09/01/20 at 06:30 Benzonatate (Tessalon Perle) 100 mg PRN Q8HRS PRN PO COUGH Last administered on 09/01/20at 06:34; Start 09/01/20 at 06:30 Morphine Sulfate (Morphine Sulfate) 2 mg PRN Q2HR PRN IV PAIN Last administered on 09/01/20at 10:05; Start 09/01/20 at 06:30 Metoprolol Tartrate (Lopressor Vial) 5 mg 1X ONCE IVP ; Start 09/01/20 at 10:15; Stop 09/01/20 at 10:16; Status DC Acetaminophen (Tylenol Supp) 650 mg PRN Q6HRS PRN TN MILD PAIN / TEMP > 100.3'F; Start 09/01/20 at 10:15 Metoprolol Tartrate (Lopressor Vial) 5 mg PRN Q6HRS PRN IVP SBP>160 Last administered on 09/02/20at 10:41; Start 09/01/20 at 10:15 Furosemide (Lasix) 20 mg DAILY IVP Last administered on 09/04/20at 09:27; Start 09/01/20 at 10:30 Succinylcholine Chloride (Anectine) 200 mg STK-MED ONCE .ROUTE ; Start 09/01/20 at 10:27; Stop 09/01/20 at 10:28; Status DC Etomidate (Amidate) 20 mg STK-MED ONCE IV ; Start 09/01/20 at 10:28; Stop 09/01/20 at 10:28; Status DC Midazolam HCl (Versed) 5 mg STK-MED ONCE .ROUTE ; Start 09/01/20 at 10:34; Stop 09/01/20 at 10:35; Status DC Fentanyl Citrate 30 ml @ 0 mls/hr CONT PRN IV SEE PROTOCOL Last administered on 09/01/20at 11:13; Start 09/01/20 at 10:45; Stop 09/01/20 at 15:00; Status DC Midazolam HCl 100 ml @ 0 mls/hr CONT PRN IV SEE PROTOCOL Last administered on 09/03/20at 23:41; Start 09/01/20 at 10:45 Fentanyl Citrate 30 ml @ 0 mls/hr CONT PRN IV SEE PROTOCOL; Start 09/01/20 at 10:30; Status UNV Propofol 100 ml @ 0 mls/hr CONT PRN IV PER PROTOCOL Last administered on 09/04/20at 03:50; Start 09/01/20 at 10:30 Glycerin/ Hypromellose/ Polyethylene (Artificial Tears) 1 drop PRN Q1HR PRN OU DRY EYE; Start 09/01/20 at 10:30 Midazolam HCl 100 ml @ 0 mls/hr CONT PRN IV SEE PROTOCOL; Start 09/01/20 at 10:30; Status UNV Diphenhydramine HCl (Benadryl) 25 mg PRN Q15MIN PRN IVP EPS Symptoms; Start at 10:30 Midazolam HCl (Versed) 5 mg 1X ONCE IV Last administered on 09/01/20at 11:07; Start 09/01/20 at 10:30; Stop 09/01/20 at 10:49; Status DC Etomidate (Amidate) 14 mg 1X ONCE IV Last administered on 09/01/20at 11:06; Start 09/01/20 at 11:00; Stop 09/01/20 at 11:02; Status DC Succinylcholine Chloride (Anectine) 120 mg 1X ONCE IV Last administered on 09/01/20at 11:03; Start 09/01/20 at 11:00; Stop 09/01/20 at 11:02; Status DC Vecuronium [place] (Norcuron Bolus) 10 mg STK-MED ONCE IV ; Start 09/01/20 at 11:09; Stop 09/01/20 at 11:09; Status DC Vecuronium [place] (Norcuron Bolus) 6 mg 1X ONCE IV Last administered on 09/01/20at 11:19; Start 09/01/20 at 11:15; Stop 09/01/20 at 11:17; Status DC Acetaminophen (Tylenol) 650 mg PRN Q6HRS PRN PEG MILD PAIN / TEMP > 100.3'F Last administered on 09/02/20at 11:46; Start 09/01/20 at 12:00 Vecuronium [place] (Norcuron Bolus) 6 mg PRN Q1HR PRN IV SEE ADMIN INSTRUCTIONS Last administered on 09/02/20at 12:03; Start 09/01/20 at 12:30 Furosemide (Lasix) 40 mg 1X ONCE IVP Last administered on 09/01/20at 13:00; Start 09/01/20 at 13:00; Stop 09/01/20 at 13:01; Status DC Dopamine HCl/ Dextrose 250 ml @ 26.063 mls/ hr CONT PRN IV SEE I/O RECORD; Start 09/01/20 at 13:00 Fentanyl Citrate 55 ml @ 0 mls/hr CONT PRN IV SEE PROTOCOL Last administered on 09/03/20at 20:28; Start 09/01/20 at 14:15 Doxycycline Hyclate 100 mg/ Dextrose 100 ml @ 50 mls/hr Q12HR IV Last administered on 09/04/20 09:27; Start 09/01/20 at 21:00 Ceftriaxone Sodium (Rocephin) 1 gm Q24H IVP Last administered on 09/03/20at 15:25; Start 09/01/20 at 15:00 Insulin Human Lispro (HumaLOG) 0-9 UNITS Q6HRS SQ Last administered on 09/04/20at 06:20; Start 09/01/20 at 18:00 Sodium Chloride 1,000 ml @ 100 mls/hr Q10H IV Last administered on 09/04/20at 03:50; Start 09/03/20 at 19:15 Sodium Chloride 500 ml @ 500 mls/hr 1X ONCE IV Last administered on 09/03/20at 20:26; Start 09/03/20 at 19:15; Stop 09/03/20 at 20:14; Status DC Magnesium Sulfate 50 ml @ 25 mls/hr PRN DAILY PRN IV for Mag < 1.7 on am labs; Start 09/03/20 at 19:30 Active Scripts Active Reported [cholecalcif] 25 Mcg PO DAILY Capsaicin 42.5 Gm Cream..g. 1 Chris TP QID [albuterol 90MCG] 2 Puff INH QID Robaxin-750 (Methocarbamol) 750 Mg Tablet 1 Tab PO BID 30 Days Indomethacin 50 Mg Capsule 1 Cap PO BID 10 Days with food Omeprazole 20 Mg Tablet.dr 20 Mg PO DAILY Gabapentin 600 Mg Tablet 600 Mg PO BID Crestor (Rosuvastatin Calcium) 40 Mg Tablet 20 Mg PO HS Singulair Tablet (Montelukast Sodium) 10 Mg Tablet 10 Mg PO HS Metformin Hcl 850 Mg Tablet 850 Mg PO BIDWMEALS Losartan Potassium 100 Mg Tablet 100 Mg PO DAILY Lasix (Furosemide) 20 Mg Tablet 20 Mg PO DAILY Refresh Optive Eye Drops (Carboxymethylcellulos/Glycerin) 15 Ml Drops 1 Drop EACHEYE BID PRN Prednisone 20 Mg Tablet 10 Mg PO DAILY Ropinirole Hcl 5 Mg Tablet 5 Mg PO QHS Vitals/I & O Vital Sign - Last 24 Hours 09/03/20 09/03/20 09/03/20 09/03/20 11:11 11:20 12:04 12:07 Temp 99.2 99.2 Pulse 80 Resp 29 B/P (MAP) 125/51 (75) Pulse Ox 93 94 O2 Delivery Ventilator Ventilator Mechanical Ventilator 09/03/20 09/03/20 09/03/20 1/1/21 12:08 13:07 13:58 15:12 Pulse 80 75 73 73 Resp 29 28 28 28 B/P (MAP) 133/48 (76) 117/50 (72) 123/52 (75) 104/46 (65) Pulse Ox 94 94 94 95 O2 Delivery Ventilator Ventilator Ventilator Ventilator 09/03/20 09/03/20 09/03/20 09/03/20 15:25 16:08 16:09 16:15 Temp 98.3 98.3 Pulse 71 Resp 28 B/P (MAP) 112/48 (69) Pulse Ox 96 95 O2 Delivery Ventilator Mechanical Ventilator Ventilator 09/03/20 09/03/20 09/03/20 09/03/20 17:16 17:56 19:00 20:00 Pulse 76 75 72 Resp 28 28 28 B/P (MAP) 130/52 (78) 144/58 (86) 165/80 (108) Pulse Ox 97 96 95 O2 Delivery Ventilator Ventilator Ventilator 09/03/20 09/03/20 09/03/20 09/03/20 20:00 20:00 20:28 20:33 Temp 98.7 98.7 Pulse 103 Resp 28 28 B/P (MAP) 199/101 (133) Pulse Ox 88 96 94 O2 Delivery Ventilator Mechanical Ventilator Ventilator 09/03/20 09/03/20 09/03/20 09/03/20 21:00 21:15 22:00 23:00 Pulse 84 82 94 Resp 28 28 28 28 B/P (MAP) 89/64 (72) 96/52 (67) 100/46 (64) Pulse Ox 89 89 93 92 O2 Delivery Ventilator Ventilator Ventilator Ventilator 09/04/20 09/04/20 09/04/20 09/04/20 00:00 00:00 00:00 00:13 Temp 99.0 99.0 Pulse 79 Resp 28 B/P (MAP) 94/48 (63) Pulse Ox 92 90 O2 Delivery Ventilator Mechanical Ventilator Ventilator 09/04/20 09/04/20 09/04/20 09/04/20 01:00 02:00 03:00 04:00 Pulse 83 77 75 Resp 28 28 28 B/P (MAP) 84/44 (57) 91/47 (62) 92/51 (65) Pulse Ox 92 92 94 O2 Delivery Ventilator Ventilator Ventilator Mechanical Ventilator 09/04/20 09/04/20 09/04/20 09/04/20 04:00 04:00 04:16 05:00 Temp 98.9 98.9 Pulse 75 82 Resp 28 28 B/P (MAP) 115/64 (81) 116/61 (79) Pulse Ox 93 94 95 O2 Delivery Ventilator Ventilator Ventilator 09/04/20 09/04/20 09/04/20 09/04/20 06:00 07:04 08:00 08:00 Temp 98.4 98.4 Pulse 78 85 Resp 28 28 B/P (MAP) 163/57 (92) 164/49 (87) Pulse Ox 97 98 O2 Delivery Ventilator Ventilator Mechanical Ventilator Intake and Output 09/03/20 09/03/20 09/04/20 15:00 23:00 07:00 Intake Total 100 ml 1458 ml 3012.6 ml Output Total 170 ml 150 ml 275 ml Balance -70 ml 1308 ml 2737.6 ml Justicifation of Admission Dx: Justifications for Admission: Justification of Admission Dx: Yes Comminuty Aquired Pneumonia: Hypoxemia Chronic Renal Failure: Encephalopathy Sepsis: Hypoxemia LUIS TRIPLETT MD Sep 04, 2020 10:25
[2020-09-04 10:27] LABS: FIO2 ABG 100
[2020-09-04] MEDS: MIDAZOLAM 100mg/100ml NS BAG 100 ML IV PRN ×2 (10:43→17:29)
[2020-09-04] MEDS: ACETAMINOPHEN 650 MG/20.3 ML SOLUTION. PEG PRN (12:58)
--- NOTE | 2020-09-04 14:48 | PDOC2 ---
CONSULT Date of Consult Date of Consult DATE: 09/04/20 TIME: 14:22 Reason for Consult Reason for Consult: Acute kidney injury Referring Physician Referring Physician: Kylie Identification/Chief Complaint Chief Complaint transfer from the [facility]: COVID-19 Source Source: Chart review History of Present Illness Reason for Visit: Patient is a 60-year-old male with comorbidities as outlined below. He was transferred from the [facility] due to acute respiratory failure due to recently diagnosed COVID-19 infection. Patient is sedated intubated on the ventilator currently and unable to get much in terms of history from him. I have reviewed Dr. Sethi's note which reports that patient was tested positive for Covid on 08/25/2020, and was treated with IV remdesivir and Decadron. He is reportedly finished 5 days of IV antibiotics. He continues to have ongoing febrile illness with a T-max of 101 F. Patient developed progressive hypoxia to where he is currently sedated intubated on the ventilator 100% FiO2. Based on admission HPI it appears that patient had a CTA done at the [facility]. His most recent ABG from [facility] this morning is 7.2 / 100% FiO2 Past Medical History Cardiovascular: CAD, HTN, Hyperlipidemia Endocrine: Diabetes Family History Family History: Other (unable to obtain due to sedated and intubated state) Current Medications Current Medications Current Medications Sennosides (Senna) 17.2 mg PRN BID PRN PO CONSTIPATION; Start 08/31/20 at 18:15 Docusate Sodium (Colace) 100 mg PRN DAILY PRN PO HARD STOOLS; Start 08/31/20 at 18:15 Ondansetron HCl (Zofran) 4 mg PRN Q6HRS PRN IVP NAUSEA/VOMITING; Start 08/31/20 at 18:15 Insulin Human Lispro (HumaLOG) 0-9 UNITS TIDWMEALS SQ ; Start 09/01/20 at 08:00; Stop 09/01/20 at 17:13; Status DC Dextrose (Dextrose 50%-Water Syringe) 12.5 gm PRN Q15MIN PRN IV SEE COMMENTS; Start 08/31/20 at 18:15 Enoxaparin Sodium (Lovenox 40mg Syringe) 40 mg Q24H SQ ; Start 08/31/20 at 21:00; Stop 08/31/20 at 18:36; Status DC Pantoprazole Sodium (PROTONIX VIAL for IV PUSH) 40 mg DAILYAC IVP Last adminis tered on 09/04/20 09:28; Start 09/01/20 at 07:30 Enoxaparin Sodium (Lovenox 40mg Syringe) 40 mg BID SQ Last administered on 09:27; Start 08/31/20 at 21:00 Dexamethasone Sodium Phosphate (Decadron) 6 mg DAILY IVP Last administered on 09/04/20 09:28; Start 09/01/20 at 09:00 Ascorbic Acid (Vitamin C) 3,000 mg TID PO Last administered on 09/04/20 09:27; Start 08/31/20 at 21:00 Thiamine HCl 100 mg/Dextrose 51 ml @ 102 mls/hr Q8HRS IV Last administered on 09/04/20 06:13; Start 08/31/20 at 22:00 Insulin Glargine (Lantus Syringe) 40 unit DAILY SQ Last administered on 09/04/20 09:26; Start 09/01/20 at 09:00 Furosemide (Lasix) 20 mg DAILY PO ; Start 09/01/20 at 09:00; Stop 09/01/20 at 10:06; Status DC Metformin HCl (Glucophage) 850 mg BIDWMEALS PO ; Start 09/01/20 at 08:00; Stop 09/01/20 at 17:13; Status DC Methocarbamol (Robaxin) 750 mg BID PO Last administered on 08/31/20at 21:01; Start 08/31/20 at 21:00; Stop 09/01/20 at 17:13; Status DC Montelukast Sodium (Singulair) 10 mg HS PO Last administered on 08/31/20at 20:05; Start 08/31/20 at 21:00; Stop 09/01/20 at 17:13; Status DC Capsaicin (Zostrix) 1 chris QID TP Last administered on 08/31/20at 21:02; Start 08/31/20 at 21:00; Stop 09/01/20 at 17:13; Status DC Glycerin/ Hypromellose/ Polyethylene (Artificial Tears) 1 drop PRN BID PRN OU DRY EYE; Start 08/31/20 at 19:45; Stop 12/30/20 at 10:49; Status DC Gabapentin (Neurontin) 600 mg BID PO Last administered on 09/04/20 09:29; Start 08/31/20 at 21:00 Indomethacin (Indocin) 50 mg BIDWMEALS PO Last administered on 08/31/20at 21:02; Start 08/31/20 at 21:00; Stop 09/01/20 at 17:13; Status DC Losartan Potassium (Cozaar) 100 mg DAILY PO ; Start 09/01/20 at 09:00; Stop 09/01/20 at 10:06; Status DC Non-Formulary Medication (Omeprazole ) 20 mg DAILY PO ; Start 09/01/20 at 09:00; Status UNV Ropinirole HCl (Requip) 5 mg QHS PO Last administered on 08/31/20at 20:06; Start 08/31/20 at 21:00; Stop 09/01/20 at 17:13; Status DC Atorvastatin Calcium (Lipitor) 80 mg QHS PO Last administered on 09/03/20 20:25; Start 08/31/20 at 21:00 Vitamin D (Vitamin D3) 1,000 unit DAILY PO Last administered on 09/04/20 09:27; Start 09/01/20 at 09:00 Labetalol HCl (Normodyne Iv Push) 10 mg TID PRN PRN IVP SBP>180 Last administered on 09/02/20at 08:06; Start 08/31/20 at 21:45 Lorazepam (Ativan) 0.25 mg PRN Q6HRS PRN PO ANXIETY / AGITATION; Start 09/01/20 at 06:30 Benzonatate (Tessalon Perle) 100 mg PRN Q8HRS PRN PO COUGH Last administered on 09/01/20at 06:34; Start 09/01/20 at 06:30 Morphine Sulfate (Morphine Sulfate) 2 mg PRN Q2HR PRN IV PAIN Last administered on 09/01/20at 10:05; Start 09/01/20 at 06:30 Metoprolol Tartrate (Lopressor Vial) 5 mg 1X ONCE IVP ; Start 09/01/20 at 10:15; Stop 09/01/20 at 10:16; Status DC Acetaminophen (Tylenol Supp) 650 mg PRN Q6HRS PRN MI MILD PAIN / TEMP > 100.3'F; Start 09/01/20 at 10:15 Metoprolol Tartrate (Lopressor Vial) 5 mg PRN Q6HRS PRN IVP SBP>160 Last administered on 09/02/20at 10:41; Start 09/01/20 at 10:15 Furosemide (Lasix) 20 mg DAILY IVP Last administered on 09/04/20 09:27; Start 09/01/20 at 10:30 Succinylcholine Chloride (Anectine) 200 mg STK-MED ONCE .ROUTE ; Start 09/01/20 at 10:27; Stop 09/01/20 at 10:28; Status DC Etomidate (Amidate) 20 mg STK-MED ONCE IV ; Start 09/01/20 at 10:28; Stop 09/01/20 at 10:28; Status DC Midazolam HCl (Versed) 5 mg STK-MED ONCE .ROUTE ; Start 09/01/20 at 10:34; Stop 09/01/20 at 10:35; Status DC Fentanyl Citrate 30 ml @ 0 mls/hr CONT PRN IV SEE PROTOCOL Last administered on 09/01/20at 11:13; Start 09/01/20 at 10:45; Stop 09/01/20 at 15:00; Status DC Midazolam HCl 100 ml @ 0 mls/hr CONT PRN IV SEE PROTOCOL Last administered on 09/04/20 10:43; Start 09/01/20 at 10:45 Fentanyl Citrate 30 ml @ 0 mls/hr CONT PRN IV SEE PROTOCOL; Start 09/01/20 at 10:30; Status UNV Propofol 100 ml @ 0 mls/hr CONT PRN IV PER PROTOCOL Last administered on 09/04/20 10:44; Start 09/01/20 at 10:30 Glycerin/ Hypromellose/ Polyethylene (Artificial Tears) 1 drop PRN Q1HR PRN OU DRY EYE; Start 09/01/20 at 10:30 Midazolam HCl 100 ml @ 0 mls/hr CONT PRN IV SEE PROTOCOL; Start 09/01/20 at 10:30; Status UNV Diphenhydramine HCl (Benadryl) 25 mg PRN Q15MIN PRN IVP EPS Symptoms; Start 09/01/20 at 10:30 Midazolam HCl (Versed) 5 mg 1X ONCE IV Last administered on 09/01/20at 11:07; Start 09/01/20 at 10:30; Stop 09/01/20 at 10:49; Status DC Etomidate (Amidate) 14 mg 1X ONCE IV Last administered on 09/01/20at 11:06; Start 09/01/20 at 11:00; Stop 09/01/20 at 11:02; Status DC Succinylcholine Chloride (Anectine) 120 mg 1X ONCE IV Last administered on 09/01/20at 11:03; Start 09/01/20 at 11:00; Stop 09/01/20 at 11:02; Status DC Vecuronium Navarre (Norcuron Bolus) 10 mg STK-MED ONCE IV ; Start 09/01/20 at 11:09; Stop 09/01/20 at 11:09; Status DC Vecuronium Navarre (Norcuron Bolus) 6 mg 1X ONCE IV Last administered on 09/01/20at 11:19; Start 09/01/20 at 11:15; Stop 09/01/20 at 11:17; Status DC Acetaminophen (Tylenol) 650 mg PRN Q6HRS PRN PEG MILD PAIN / TEMP > 100.3'F Last administered on 09/04/20 12:58; Start 09/01/20 at 12:00 Vecuronium Navarre (Norcuron Bolus) 6 mg PRN Q1HR PRN IV SEE ADMIN INSTRUCTIONS Last administered on 09/02/20at 12:03; Start 09/01/20 at 12:30 Furosemide (Lasix) 40 mg 1X ONCE IVP Last administered on 09/01/20at 13:00; Start 09/01/20 at 13:00; Stop 09/01/20 at 13:01; Status DC Dopamine HCl/ Dextrose 250 ml @ 26.063 mls/ hr CONT PRN IV SEE I/O RECORD; Start 09/01/20 at 13:00 Fentanyl Citrate 55 ml @ 0 mls/hr CONT PRN IV SEE PROTOCOL Last administered on 09/03/20 20:28; Start 09/01/20 at 14:15 Doxycycline Hyclate 100 mg/ Dextrose 100 ml @ 50 mls/hr Q12HR IV Last administered on 09/04/20 09:27; Start 09/01/20 at 21:00 Ceftriaxone Sodium (Rocephin) 1 gm Q24H IVP Last administered on 1/1/21at 15:25; Start 09/01/20 at 15:00 Insulin Human Lispro (HumaLOG) 0-9 UNITS Q6HRS SQ Last administered on 09/04/20at 13:00; Start 09/01/20 at 18:00 Sodium Chloride 1,000 ml @ 100 mls/hr Q10H IV Last administered on 09/04/20at 03:50; Start 09/03/20 at 19:15 Sodium Chloride 500 ml @ 500 mls/hr 1X ONCE IV Last administered on 09/03/20at 20:26; Start 09/03/20 at 19:15; Stop 09/03/20 at 20:14; Status DC Magnesium Sulfate 50 ml @ 25 mls/hr PRN DAILY PRN IV for Mag < 1.7 on am labs; Start 09/03/20 at 19:30 Epinephrine HCl (EPINEPHrine SYRINGE) 1 mg STK-MED ONCE .ROUTE ; Start 09/02/20 at 15:00; Stop 09/04/20 at 11:58; Status DC Active Scripts Active Reported [cholecalcif] 25 Mcg PO DAILY Capsaicin 42.5 Gm Cream..g. 1 Chris TP QID [albuterol 90MCG] 2 Puff INH QID Robaxin-750 (Methocarbamol) 750 Mg Tablet 1 Tab PO BID 30 Days Indomethacin 50 Mg Capsule 1 Cap PO BID 10 Days with food Omeprazole 20 Mg Tablet.dr 20 Mg PO DAILY Gabapentin 600 Mg Tablet 600 Mg PO BID Crestor (Rosuvastatin Calcium) 40 Mg Tablet 20 Mg PO HS Singulair Tablet (Montelukast Sodium) 10 Mg Tablet 10 Mg PO HS Metformin Hcl 850 Mg Tablet 850 Mg PO BIDWMEALS Losartan Potassium 100 Mg Tablet 100 Mg PO DAILY Lasix (Furosemide) 20 Mg Tablet 20 Mg PO DAILY Refresh Optive Eye Drops (Carboxymethylcellulos/Glycerin) 15 Ml Drops 1 Drop EACHEYE BID PRN Prednisone 20 Mg Tablet 10 Mg PO DAILY Ropinirole Hcl 5 Mg Tablet 5 Mg PO QHS Allergies Allergies: Coded Allergies: flunisolide (Verified Adverse Reaction, Mild, insufficient response, 08/31/20) lisinopril (Verified Adverse Reaction, Mild, cough, 08/31/20) ROS Review of System unable to obtain due to Sedated and intubated state Physical Exam Physical Exam Patient remained sedated intubated on the ventilator at this time. Ventilator settings were reviewed. Unable to physically examine due to COVID-19 isolation precautions Vital Signs Vital Signs Date Time Temp Pulse Resp B/P (MAP) Pulse Ox O2 Delivery O2 Flow Rate FiO2 09/04/20 13:08 95 32 124/53 (76) 92 Ventilator 09/04/20 12:00 101.0 101.0 Assessment & Plan NEELIMA ? ATN: Differential includes contrast associated nephropathy with CT scan was done at the [facility] versus Covid associated nephropathy and hypoxia associated ATN. We will proceed with CRRT. Will check CPK again in the morning. Current CPK was normal. LDH is elevated but doubt uric acid nephropathy in light of normal uric acid at 6.2. Underlying CKD of diabetic nephropathy cannot be ruled out. Creatinine was 1.2 at presentation Advanced respiratory failure with 100% FiO2 requirement. We will proceed with CRRT for gentle ultrafiltration. Consider cardiology consultation Hypotension in response to IV Lasix administration suggest intravascular volume depletion. May need CVP monitoring also. No recent echocardiogram in our system. Consider cardiology evaluation. Patient remains on steroids at this time hence Florinef was not ordered and cortisol was not checked. Troponin will be checked Severe hypoalbuminemia of unclear etiology in the setting of elevated LFTs. Gradually worsening anemia: Microcytic in nature check iron profile probably will not be able to administer IV iron at this time given ongoing infection and febrile illness Fever and sepsis: Source unclear other than COVID-19 pneumonitis COVID-19 pneumonitis I have had long discussion with the patient's . She would like to proceed with CRRT at this time. Given the fact that his creatinine was 1.2 at presentation, there is a high likelihood that he could eventually be dialysis independent if he recovers from Covid pneumonitis Prognosis is guarded Critical care time 35 minutes incoordination with IR for line placement, CRRT orders Labs Labs Laboratory Tests Test 09/02/20 17:40 09/03/20 00:23 09/03/20 05:40 09/03/20 07:03 Glucose (Fingerstick) 259 mg/dL (70-99) 263 mg/dL (70-99) 210 mg/dL (70-99) White Blood Count 11.0 x10^3/uL (4.0-11.0) Red Blood Count 4.36 x10^6/uL (4.30-5.70) Hemoglobin 11.0 g/dL (13.0-17.5) Hematocrit 33.4 % (39.0-53.0) Mean Corpuscular Volume 77 fL (79-100) Mean Corpuscular Hemoglobin 25 pg (25-35) Mean Corpuscular Hemoglobin Concent 33 g/dL (31-37) Red Cell Distribution Width 15.1 % (11.5-14.5) Platelet Count 192 x10^3/uL (140-400) Neutrophils (%) (Auto) 92 % (31-73) Lymphocytes (%) (Auto) 4 % (24-48) Monocytes (%) (Auto) 2 % (0-9) Eosinophils (%) (Auto) 1 % (0-3) Basophils (%) (Auto) 0 % (0-3) Neutrophils # (Auto) 10.1 x10^3/uL (1.8-7.7) Lymphocytes # (Auto) 0.4 x10^3/uL (1.0-4.8) Monocytes # (Auto) 0.3 x10^3/uL (0.0-1.1) Eosinophils # (Auto) 0.1 x10^3/uL (0.0-0.7) Basophils # (Auto) 0.0 x10^3/uL (0.0-0.2) Sodium Level 140 mmol/L (136-145) Potassium Level 4.6 mmol/L (3.5-5.1) Chloride Level 103 mmol/L (98-107) Carbon Dioxide Level 29 mmol/L (21-32) Anion Gap 8 (6-14) Blood Urea Nitrogen 59 mg/dL (8-26) Creatinine 3.2 mg/dL (0.7-1.3) Estimated GFR (Cockcroft-Gault) 20.1 Glucose Level 214 mg/dL (70-99) Uric Acid 6.2 mg/dL (3.5-7.2) Calcium Level 8.1 mg/dL (8.5-10.1) Lactate Dehydrogenase 1616 U/L (85-227) Creatine Kinase 111 U/L (39-308) Test 09/03/20 07:45 09/03/20 12:13 09/03/20 17:30 09/03/20 23:35 O2 Saturation 90 % (92-99) Arterial Blood pH 7.34 (7.35-7.45) Arterial Blood pCO2 at Patient Temp 51 mmHg (35-46) Arterial Blood pO2 at Patient Temp 64 mmHg (75-108) Arterial Blood HCO3 27 mmol/L (21-28) Arterial Blood Base Excess 0 mmol/L (-3-3) FiO2 100/vent Glucose (Fingerstick) 261 mg/dL (70-99) 257 mg/dL (70-99) 224 mg/dL (70-99) Test 09/04/20 06:20 09/04/20 07:15 09/04/20 09:50 09/04/20 12:58 White Blood Count 12.6 x10^3/uL (4.0-11.0) Red Blood Count 4.20 x10^6/uL (4.30-5.70) Hemoglobin 10.4 g/dL (13.0-17.5) Hematocrit 32.6 % (39.0-53.0) Mean Corpuscular Volume 78 fL (79-100) Mean Corpuscular Hemoglobin 25 pg (25-35) Mean Corpuscular Hemoglobin Concent 32 g/dL (31-37) Red Cell Distribution Width 14.9 % (11.5-14.5) Platelet Count 211 x10^3/uL (140-400) Neutrophils (%) (Auto) 92 % (31-73) Lymphocytes (%) (Auto) 3 % (24-48) Monocytes (%) (Auto) 3 % (0-9) Eosinophils (%) (Auto) 1 % (0-3) Basophils (%) (Auto) 0 % (0-3) Neutrophils # (Auto) 11.6 x10^3/uL (1.8-7.7) Lymphocytes # (Auto) 0.4 x10^3/uL (1.0-4.8) Monocytes # (Auto) 0.4 x10^3/uL (0.0-1.1) Eosinophils # (Auto) 0.1 x10^3/uL (0.0-0.7) Basophils # (Auto) 0.0 x10^3/uL (0.0-0.2) Sodium Level 134 mmol/L (136-145) Potassium Level 5.0 mmol/L (3.5-5.1) Chloride Level 101 mmol/L (98-107) Carbon Dioxide Level 24 mmol/L (21-32) Anion Gap 9 (6-14) Blood Urea Nitrogen 85 mg/dL (8-26) Creatinine 5.0 mg/dL (0.7-1.3) Estimated GFR (Cockcroft-Gault) 12.0 BUN/Creatinine Ratio 17 (6-20) Glucose Level 205 mg/dL (70-99) Calcium Level 8.1 mg/dL (8.5-10.1) Phosphorus Level 5.8 mg/dL (2.6-4.7) Magnesium Level 3.4 mg/dL (1.8-2.4) Total Bilirubin 0.4 mg/dL (0.2-1.0) Aspartate Amino Transf (AST/SGOT) 96 U/L (15-37) Alanine Aminotransferase (ALT/SGPT) 66 U/L (16-63) Alkaline Phosphatase 145 U/L (46-116) Total Protein 5.9 g/dL (6.4-8.2) Albumin 1.4 g/dL (3.4-5.0) Albumin/Globulin Ratio 0.3 (1.0-1.7) Urine Collection Type Unknown Urine Color Urine Clarity Turbid Urine pH 5.0 (<5.0-8.0) Urine Specific [place] 1.020 (1.000-1.030) Urine Protein 30 mg/dL (NEG-TRACE) Urine Glucose (UA) Negative mg/dL (NEG) Urine Ketones (Stick) Negative mg/dL (NEG) Urine Blood Large (NEG) Urine Nitrite Negative (NEG) Urine Bilirubin Negative (NEG) Urine Urobilinogen Dipstick 0.2 mg/dL (0.2 mg/dL) Urine Leukocyte Esterase Small (NEG) Urine RBC 20-40 /HPF (0-2) Urine WBC 1-4 /HPF (0-4) Urine Squamous Epithelial Cells Few /LPF Urine Amorphous Sediment Present /HPF Urine Bacteria Few /HPF (0-FEW) Urine Hyaline Casts Few /HPF Urine Granular Casts Occasional /HPF O2 Saturation 85 % (92-99) Arterial Blood pH 7.26 (7.35-7.45) Arterial Blood pCO2 at Patient Temp 58 mmHg (35-46) Arterial Blood pO2 at Patient Temp 55 mmHg (75-108) Arterial Blood HCO3 26 mmol/L (21-28) Arterial Blood Base Excess -2 mmol/L (-3-3) FiO2 100 Glucose (Fingerstick) 264 mg/dL (70-99) Laboratory Tests Test 09/03/20 17:30 09/03/20 23:35 09/04/20 06:20 09/04/20 07:15 Glucose (Fingerstick) 257 mg/dL (70-99) 224 mg/dL (70-99) White Blood Count 12.6 x10^3/uL (4.0-11.0) Red Blood Count 4.20 x10^6/uL (4.30-5.70) Hemoglobin 10.4 g/dL (13.0-17.5) Hematocrit 32.6 % (39.0-53.0) Mean Corpuscular Volume 78 fL (79-100) Mean Corpuscular Hemoglobin 25 pg (25-35) Mean Corpuscular Hemoglobin Concent 32 g/dL (31-37) Red Cell Distribution Width 14.9 % (11.5-14.5) Platelet Count 211 x10^3/uL (140-400) Neutrophils (%) (Auto) 92 % (31-73) Lymphocytes (%) (Auto) 3 % (24-48) Monocytes (%) (Auto) 3 % (0-9) Eosinophils (%) (Auto) 1 % (0-3) Basophils (%) (Auto) 0 % (0-3) Neutrophils # (Auto) 11.6 x10^3/uL (1.8-7.7) Lymphocytes # (Auto) 0.4 x10^3/uL (1.0-4.8) Monocytes # (Auto) 0.4 x10^3/uL (0.0-1.1) Eosinophils # (Auto) 0.1 x10^3/uL (0.0-0.7) Basophils # (Auto) 0.0 x10^3/uL (0.0-0.2) Sodium Level 134 mmol/L (136-145) Potassium Level 5.0 mmol/L (3.5-5.1) Chloride Level 101 mmol/L (98-107) Carbon Dioxide Level 24 mmol/L (21-32) Anion Gap 9 (6-14) Blood Urea Nitrogen 85 mg/dL (8-26) Creatinine 5.0 mg/dL (0.7-1.3) Estimated GFR (Cockcroft-Gault) 12.0 BUN/Creatinine Ratio 17 (6-20) Glucose Level 205 mg/dL (70-99) Calcium Level 8.1 mg/dL (8.5-10.1) Phosphorus Level 5.8 mg/dL (2.6-4.7) Magnesium Level 3.4 mg/dL (1.8-2.4) Total Bilirubin 0.4 mg/dL (0.2-1.0) Aspartate Amino Transf (AST/SGOT) 96 U/L (15-37) Alanine Aminotransferase (ALT/SGPT) 66 U/L (16-63) Alkaline Phosphatase 145 U/L (46-116) Total Protein 5.9 g/dL (6.4-8.2) Albumin 1.4 g/dL (3.4-5.0) Albumin/Globulin Ratio 0.3 (1.0-1.7) Urine Collection Type Unknown Urine Color Urine Clarity Turbid Urine pH 5.0 (<5.0-8.0) Urine Specific [place] 1.020 (1.000-1.030) Urine Protein 30 mg/dL (NEG-TRACE) Urine Glucose (UA) Negative mg/dL (NEG) Urine Ketones (Stick) Negative mg/dL (NEG) Urine Blood Large (NEG) Urine Nitrite Negative (NEG) Urine Bilirubin Negative (NEG) Urine Urobilinogen Dipstick 0.2 mg/dL (0.2 mg/dL) Urine Leukocyte Esterase Small (NEG) Urine RBC 20-40 /HPF (0-2) Urine WBC 1-4 /HPF (0-4) Urine Squamous Epithelial Cells Few /LPF Urine Amorphous Sediment Present /HPF Urine Bacteria Few /HPF (0-FEW) Urine Hyaline Casts Few /HPF Urine Granular Casts Occasional /HPF Test 09/04/20 09:50 09/04/20 12:58 O2 Saturation 85 % (92-99) Arterial Blood pH 7.26 (7.35-7.45) Arterial Blood pCO2 at Patient Temp 58 mmHg (35-46) Arterial Blood pO2 at Patient Temp 55 mmHg (75-108) Arterial Blood HCO3 26 mmol/L (21-28) Arterial Blood Base Excess -2 mmol/L (-3-3) FiO2 100 Glucose (Fingerstick) 264 mg/dL (70-99) Review All relevant outside records, renal labs, imaging studies, telemetry/EKG's were reviewed. Images Images Renal ultrasound this hospitalization FINDINGS: Right kidney measures 11.3 cm in length. No hydronephrosis. Left kidney measures 12.6 cm in length. No hydronephrosis. Bladder is decompressed not well seen. Visualized portions aorta and IVC are unremarkable. IMPRESSION: 1. No hydronephrosis. 2. Incidental note of diffuse hepatic steatosis. No recent chest x-ray other than from 09/01/2020: IMPRESSION: 1. Interval placement of right-sided internal jugular line with the tip projecting in the SVC. No pneumothorax. 2. Mild prominent bilateral interstitial and airspace opacities likely edema or infiltrates. KIKE SHARIF MD Sep 04, 2020 14:48
[2020-09-04] MEDS ORDERED: NOREPINEPHRINE VIAL 8 MG in IV DEXTROSE 5% 250 ML IV PRN (15:00)
[2020-09-04] MEDS: cefTRIAXone IV Push 1 GM VIAL. IVP SCH (15:16)
[2020-09-04] MEDS ORDERED: LIDOCAINE WITH 8.4% SOD BICARB 3 ML DISP.SYRIN. ONE (15:37)
[2020-09-04] MEDS ORDERED: LIDOCAINE WITH 8.4% SOD BICARB 3 ML DISP.SYRIN. INJ ONE (16:45)
--- NOTE | 2020-09-04 16:51 | RAD ---
Exam: Chest one view INDICATION: Line placement TECHNIQUE: Frontal view of the chest Comparisons: 09/01/2020 FINDINGS: Right IJ catheter with tip in the SVC. Left IVC catheter with tip at the atrial caval junction. Enter ic tube traverses below the diaphragm with tip in left upper quadrant likely in the stomach. Heart is mildly enlarged. Pulmonary vessels are obscured. Hazy opacity in lungs bilaterally. Small bilateral pleural effusions. IMPRESSION: 1. Lines and tubes described above. 2. Diffuse bilateral airspace disease likely related to pulmonary edema. Superimposed infectious pro cess is difficult to exclude. Electronically signed by: Phu Kennedy MD (09/04/2020 4:48 PM) [facility]
[2020-09-04] MEDS ORDERED: HEPARIN for IV BOLUS 10,000 UNIT/10 ML VIAL. IV PRN (18:15)
[2020-09-04] MEDS ORDERED: HEPARIN 25,000UTS/250ML PREMIX 250 ML IV PRN (18:15)
[2020-09-04] MEDS: [UNRECOGNIZED DRUG - OTHER] IV SCH ×9 (18:26→22:42)
[2020-09-04] MEDS: MAGNESIUM SULFATE IV SCH ×9 (18:26→22:42)
[2020-09-04] MEDS: POTASSIUM CHLORIDE IV SCH ×9 (18:26→22:42)
[2020-09-04] MEDS: CALCIUM CHLORIDE IV SCH ×9 (18:26→22:42)
[2020-09-04] MEDS: fentaNYL HIGH DOSE PCA 55 ML IV PRN (18:26)
[2020-09-04] MEDS ORDERED: DIALYSIS PATIENT. MC PRN ×2 (22:45)
[2020-09-04] MEDS ORDERED: 0.9 % SODIUM CHLORIDE 10 ML DISP.SYRIN. IV PRN ×2 (22:45)
[2020-09-04] MEDS ORDERED: IV NORMAL SALINE 1000ML BAG 1,000 ML IV PRN ×2 (22:45)
[2020-09-04] MEDS ORDERED: ALBUMIN HUMAN 25% 200 ML IV PRN (22:45)
[2020-09-04] MEDS: ATORVASTATIN CALCIUM 40 MG TABLET. PO SCH (23:03)
[2020-09-05] VITALS (13 sets, daily range): BP systolic 116–197; BP diastolic 41–62
[2020-09-05] MEDS: INSULIN LISPRO 300 UNITS/3 ML VIAL. SQ SCH ×3 (01:14→12:00)
[2020-09-05] MEDS: CALCIUM CHLORIDE IV SCH ×6 (02:03→05:24)
[2020-09-05] MEDS: MAGNESIUM SULFATE IV SCH ×6 (02:03→05:24)
[2020-09-05] MEDS: [UNRECOGNIZED DRUG - OTHER] IV SCH ×6 (02:03→05:24)
[2020-09-05] MEDS: POTASSIUM CHLORIDE IV SCH ×6 (02:03→05:24)
[2020-09-05] MEDS: IV NORMAL SALINE 1000ML BAG 1,000 ML IV SCH (03:24)
[2020-09-05] MEDS: PROPOFOL 100 ML IV PRN (03:25)
[2020-09-05] MEDS: THIAMINE INJ 100 MG in IV DEXTROSE 5% 50 ML IV SCH (06:14)
[2020-09-05 06:57] LABS: ALBUMIN 1.4 g/dL (3.4-5.0); CALCIUM 7.9 mg/dL (8.5-10.1); CREATININE 4.9 mg/dL (0.7-1.3); GFR 12.3; PHOSPHORUS 6.8 mg/dL (2.6-4.7)
[2020-09-05] MEDS: DEXAMETHASONE SOD PHOS 4 MG/ML VIAL IVP SCH (07:56)
[2020-09-05] MEDS: FUROSEMIDE 20 MG/2 ML VIAL. IVP SCH (07:57)
[2020-09-05] MEDS: ASCORBIC ACID 1,000 MG TABLET PO SCH (07:57)
[2020-09-05] MEDS: CHOLECALCIFEROL (VITAMIN D3) 1,000 UNIT TABLET PO SCH (07:57)
[2020-09-05] MEDS: PANTOPRAZOLE IV PUSH 40 MG VIAL. IVP SCH (07:58)
[2020-09-05] MEDS: GABAPENTIN 300 MG CAPSULE. PO SCH (07:58)
[2020-09-05] MEDS: ENOXAPARIN 40 MG/0.4 ML SYRINGE. SQ SCH (07:59)
[2020-09-05] MEDS: DOXYCYCLINE HYCLATE 100 MG in IV DEXTROSE 5% 100ML 100 ML IV SCH (07:59)
[2020-09-05] MEDS: MIDAZOLAM 100mg/100ml NS BAG 100 ML IV PRN (07:59)
[2020-09-05] MEDS: INSULIN GLARGINE SYRINGE. SQ SCH (08:01)
[2020-09-05] MEDS ORDERED: ALBUMIN HUMAN 25% 100 ML IV SCH (09:00)
[2020-09-05] MEDS: VECURONIUM BOLUS 10 MG VIAL. IV PRN (09:27)
[2020-09-05 09:52] LABS: BASE EXCESS ABG -4 mmol/L (-3-3); HCO3 ABG 25 mmol/L (21-28); SAT O2 ABG 73 % (92-99)
[2020-09-05 09:56] LABS: FIO2 ABG 100; PCO2 ABG 66 mmHg (35-46); PO2 ABG 43 mmHg (75-108)
--- NOTE | 2020-09-05 10:14 | PDOC ---
PULMONARY PROGRESS NOTES DATE: 09/05/20 TIME: 10:11 Subjective intubated 09/01 now on vent at 100% and PEEP of 13 Status post CRRT/hemodialysis overnight, hypoxic on examination oxygen saturations 86% Fever overnight no other events overnight Vitals Vital Signs Date Time Temp Pulse Resp B/P (MAP) Pulse Ox O2 Delivery O2 Flow Rate FiO2 09/05/20 09:40 87 Ventilator 09/05/20 09:04 91 30 187/54 (98) 09/05/20 08:30 99.7 99.7 09/04/20 18:56 95.0 Comments pt. seen during covid-19 pandemic, visual exam preformed VENT RRR obese no accessory muscle use no rash/edema Labs Laboratory Tests Test 09/03/20 12:13 09/03/20 17:30 09/03/20 23:35 09/04/20 06:18 Glucose (Fingerstick) 261 mg/dL (70-99) 257 mg/dL (70-99) 224 mg/dL (70-99) 210 mg/dL (70-99) Test 09/04/20 06:20 09/04/20 07:15 09/04/20 09:50 09/04/20 12:58 White Blood Count 12.6 x10^3/uL (4.0-11.0) Red Blood Count 4.20 x10^6/uL (4.30-5.70) Hemoglobin 10.4 g/dL (13.0-17.5) Hematocrit 32.6 % (39.0-53.0) Mean Corpuscular Volume 78 fL (79-100) Mean Corpuscular Hemoglobin 25 pg (25-35) Mean Corpuscular Hemoglobin Concent 32 g/dL (31-37) Red Cell Distribution Width 14.9 % (11.5-14.5) Platelet Count 211 x10^3/uL (140-400) Neutrophils (%) (Auto) 92 % (31-73) Lymphocytes (%) (Auto) 3 % (24-48) Monocytes (%) (Auto) 3 % (0-9) Eosinophils (%) (Auto) 1 % (0-3) Basophils (%) (Auto) 0 % (0-3) Neutrophils # (Auto) 11.6 x10^3/uL (1.8-7.7) Lymphocytes # (Auto) 0.4 x10^3/uL (1.0-4.8) Monocytes # (Auto) 0.4 x10^3/uL (0.0-1.1) Eosinophils # (Auto) 0.1 x10^3/uL (0.0-0.7) Basophils # (Auto) 0.0 x10^3/uL (0.0-0.2) Sodium Level 134 mmol/L (136-145) Potassium Level 5.0 mmol/L (3.5-5.1) Chloride Level 101 mmol/L (98-107) Carbon Dioxide Level 24 mmol/L (21-32) Anion Gap 9 (6-14) Blood Urea Nitrogen 85 mg/dL (8-26) Creatinine 5.0 mg/dL (0.7-1.3) Estimated GFR (Cockcroft-Gault) 12.0 BUN/Creatinine Ratio 17 (6-20) Glucose Level 205 mg/dL (70-99) Calcium Level 8.1 mg/dL (8.5-10.1) Phosphorus Level 5.8 mg/dL (2.6-4.7) Magnesium Level 3.4 mg/dL (1.8-2.4) Total Bilirubin 0.4 mg/dL (0.2-1.0) Aspartate Amino Transf (AST/SGOT) 96 U/L (15-37) Alanine Aminotransferase (ALT/SGPT) 66 U/L (16-63) Alkaline Phosphatase 145 U/L (46-116) Total Protein 5.9 g/dL (6.4-8.2) Albumin 1.4 g/dL (3.4-5.0) Albumin/Globulin Ratio 0.3 (1.0-1.7) Hepatitis B Surface Antigen Nonreactive (Nonreactive) Urine Collection Type Unknown Urine Color Urine Clarity Turbid Urine pH 5.0 (<5.0-8.0) Urine Specific [place] 1.020 (1.000-1.030) Urine Protein 30 mg/dL (NEG-TRACE) Urine Glucose (UA) Negative mg/dL (NEG) Urine Ketones (Stick) Negative mg/dL (NEG) Urine Blood Large (NEG) Urine Nitrite Negative (NEG) Urine Bilirubin Negative (NEG) Urine Urobilinogen Dipstick 0.2 mg/dL (0.2 mg/dL) Urine Leukocyte Esterase Small (NEG) Urine RBC 20-40 /HPF (0-2) Urine WBC 1-4 /HPF (0-4) Urine Squamous Epithelial Cells Few /LPF Urine Amorphous Sediment Present /HPF Urine Bacteria Few /HPF (0-FEW) Urine Hyaline Casts Few /HPF Urine Granular Casts Occasional /HPF Urine Random Sodium 35 mmol/L (Not Estab.) O2 Saturation 85 % (92-99) Arterial Blood pH 7.26 (7.35-7.45) Arterial Blood pCO2 at Patient Temp 58 mmHg (35-46) Arterial Blood pO2 at Patient Temp 55 mmHg (75-108) Arterial Blood HCO3 26 mmol/L (21-28) Arterial Blood Base Excess -2 mmol/L (-3-3) FiO2 100 Glucose (Fingerstick) 264 mg/dL (70-99) Test 09/04/20 17:36 09/04/20 23:33 09/05/20 01:20 09/05/20 06:30 Glucose (Fingerstick) 282 mg/dL (70-99) 258 mg/dL (70-99) Heparin Anti-Xa Act, Unfractionated 0.59 IU/mL (0.30-0.70) Sodium Level 135 mmol/L (136-145) Potassium Level 5.0 mmol/L (3.5-5.1) Chloride Level 99 mmol/L (98-107) Carbon Dioxide Level 25 mmol/L (21-32) Anion Gap 11 (6-14) Blood Urea Nitrogen 78 mg/dL (8-26) Creatinine 4.9 mg/dL (0.7-1.3) Estimated GFR (Cockcroft-Gault) 12.3 Glucose Level 194 mg/dL (70-99) Calcium Level 7.9 mg/dL (8.5-10.1) Phosphorus Level 6.8 mg/dL (2.6-4.7) Magnesium Level 2.9 mg/dL (1.8-2.4) Albumin 1.4 g/dL (3.4-5.0) Test 09/05/20 09:45 O2 Saturation 73 % (92-99) Arterial Blood pH 7.20 (7.35-7.45) Arterial Blood pCO2 at Patient Temp 66 mmHg (35-46) Arterial Blood pO2 at Patient Temp 43 mmHg (75-108) Arterial Blood HCO3 25 mmol/L (21-28) Arterial Blood Base Excess -4 mmol/L (-3-3) FiO2 100 Laboratory Tests Test 09/04/20 12:58 09/04/20 17:36 09/04/20 23:33 09/05/20 01:20 Glucose (Fingerstick) 264 mg/dL (70-99) 282 mg/dL (70-99) 258 mg/dL (70-99) Heparin Anti-Xa Act, Unfractionated 0.59 IU/mL (0.30-0.70) Test 09/05/20 06:30 09/05/20 09:45 Sodium Level 135 mmol/L (136-145) Potassium Level 5.0 mmol/L (3.5-5.1) Chloride Level 99 mmol/L (98-107) Carbon Dioxide Level 25 mmol/L (21-32) Anion Gap 11 (6-14) Blood Urea Nitrogen 78 mg/dL (8-26) Creatinine 4.9 mg/dL (0.7-1.3) Estimated GFR (Cockcroft-Gault) 12.3 Glucose Level 194 mg/dL (70-99) Calcium Level 7.9 mg/dL (8.5-10.1) Phosphorus Level 6.8 mg/dL (2.6-4.7) Magnesium Level 2.9 mg/dL (1.8-2.4) Albumin 1.4 g/dL (3.4-5.0) O2 Saturation 73 % (92-99) Arterial Blood pH 7.20 (7.35-7.45) Arterial Blood pCO2 at Patient Temp 66 mmHg (35-46) Arterial Blood pO2 at Patient Temp 43 mmHg (75-108) Arterial Blood HCO3 25 mmol/L (21-28) Arterial Blood Base Excess -4 mmol/L (-3-3) FiO2 100 Medications Active Scripts Medications Dose Route/Sig Max Daily Dose Days Date Category Dose Instructions [cholecalcif] 25 Mcg PO DAILY 08/31/20 Reported Capsaicin 42.5 Gm Cream..g. 1 Chris TP QID 08/31/20 Reported [albuterol 90MCG] 2 Puff INH QID 08/31/20 Reported Robaxin-750 (Methocarbamol) 750 Mg Tablet 1 Tab PO BID 30 08/31/20 Reported Indomethacin 50 Mg Capsule 1 Cap PO BID 10 08/31/20 Reported with food Omeprazole 20 Mg Tablet.dr 20 Mg PO DAILY 08/31/20 Reported Gabapentin 600 Mg Tablet 600 Mg PO BID 08/31/20 Reported Crestor (Rosuvastatin Calcium) 40 Mg Tablet 20 Mg PO HS 08/31/20 Reported Singulair Tablet (Montelukast Sodium) 10 Mg Tablet 10 Mg PO HS 08/31/20 Reported Metformin Hcl 850 Mg Tablet 850 Mg PO BIDWMEALS 08/31/20 Reported Losartan Potassium 100 Mg Tablet 100 Mg PO DAILY 08/31/20 Reported Lasix (Furosemide) 20 Mg Tablet 20 Mg PO DAILY 08/31/20 Reported Refresh Optive Eye Drops (Carboxymethylcellulos/Glycerin) 15 Ml Drops 1 Drop EACHEYE BID PRN 08/31/20 Reported Prednisone 20 Mg Tablet 10 Mg PO DAILY 08/31/20 Reported Ropinirole Hcl 5 Mg Tablet 5 Mg PO QHS 08/31/20 Reported Comments CXR 09/01 IMPRESSION: 1. Interval placement of right-sided internal jugular line with the tip projecting in the SVC. No pneumothorax. 2. Mild prominent bilateral interstitial and airspace opacities likely edema or infiltrates. Impression . IMPRESSION: 1. Acute hypoxemic respiratory failure. 2. COVID-19 viral pneumonia. 3. Fever secondary to above. 4. Elevated D-dimer secondary to above. 5. Recent CT angiogram negative for pulmonary embolism. 6. Morbid obesity. 7. Obstructive sleep apnea. 8. Diabetes. 9. NEELIMA--- status post 1 round of hemodialysis Plan . PLAN: Continue current vent support 100%----assist-control //100% Follow CXR/ABG--increased ventilatory rate to 32 Follow nephrology recs, worsening renal function, monitor --started on CRRT overnight and was terminated completed 1 round of hemodialysis with marginal improvement of renal function Patient had explicitly voiced to myself and nursing that he did not want to receive hemodialysis or chest compressions prior to being intubated I discussed this with his and she wishes to not continue any more hemodialysis secondary to his previously stated wishes and move forward with a pa lliative/comfort care measures and palliative extubation. Continue steroids for full 10 day course, started 09/01 Continue Empiric ABX: Doxy and rocephin Pt. has completed full course of remdesivir Continue TF for nutritional support DVT/GI PPX D/W RN and RT pt. is DNR Critical Care time [id number] INDRA YAÑEZ MD Sep 05, 2020 10:14
--- NOTE | 2020-09-05 11:03 | PDOC ---
PROGRESS NOTES Date of Service: DATE: 09/05/20 TIME: 11:03 Chief Complaint Chief Complaint Images: Images Negative CT of the chest done Sunday at the [place] Pending chest x-ray HOSPITAL SUMMARY ======== Assessment/Plan Acute hypoxic respiratory failure due to COVID-19 infection requiring BiPAP support Diabetes mellitus Morbid obesity intubated 09/01 now on vent at 100% and PEEP of 15 febrile overnight PLAN Admit to ICU for close respiratory monitoring Pulmonology consult vent at 100% and PEEP of 15 Continue IV dexamethasone 6 mg daily Lovenox twice daily for DVT prophylaxis Protonix while on steroids GI prophylaxis ADA diet Full code Discussed with RN Disposition inpatient management as above Surrogate decision maker is the PCXR 36 minutes of critical care time Justifications for Admission Justifications for Admission Other Justification Acute respiratory failure due to COVID History of Present Illness History of Present Illness Chief Complaint: Chief Complain: COVID pneumonia History of Present Illness: HPI: History obtained from patient and transferring physician Dr. Ramos from the [place] Patient is a 60-year-old male with past medical history of insulin dependent diabetes mellitus, morbid obesity, MARGARITO who was transferred due to acute respiratory failure due to COVID-19 infection. Patient was tested positive for Covid on 08/25/2020 patient was treated with IV remdesivir and Decadron he did finish 5 days of IV antibiotics and has still continued to be fever with a T-max of 101 F. He was tested for procalcitonin and it was been negative x2. Patient was initially placed on nasal cannula at and transition to Vapotherm and he needed to go up on his requirements to 40 L and he has been on BiPAP now 100% FiO2 for the past 2 days. Patient's D-dimer was also elevated and a chest CTA was ordered which was negative, this was done on Sunday. The reason for the transfer is to have a pulmonology specialist to oversee their care. [place] physician has attempted to transfer to [facility] but the beds are full at this time. Currently the patient denies any respiratory distress he is currently saturating 100% on FiO2 of 100% BiPAP in the ICU. Currently denies fevers, chest pain, abdominal pain, diarrhea, dysuria, or hemoptysis. Past Medical/Surgical History: PMH/PSH: DM insulin dependent, CAD, HTN MARGARITO- compliant with CPAP Morbid Obesity Hx of LBBB Allergies: Allergies: Coded Allergies: flunisolide (Verified Adverse Reaction, Mild, insufficient response, 08/31/20) lisinopril (Verified Adverse Reaction, Mild, cough, 08/31/20) Family History: Family History: Reviewed with no relevant findings Social History: Social History: Denies alcohol, tobacco, drug abuse Current Medications: Current Medications Vitals Vitals Vital Signs Date Time Temp Pulse Resp B/P (MAP) Pulse Ox O2 Delivery O2 Flow Rate FiO2 09/05/20 11:02 99 30 181/54 (96) 90 Ventilator 09/05/20 08:30 99.7 99.7 09/04/20 18:56 95.0 Physical Exam Physical Exam Physcial Exam: [id number] General: Cooperative Extremities: No cyanosis Labs LABS Laboratory Tests Test 09/04/20 12:58 09/04/20 17:36 09/04/20 23:33 09/05/20 01:20 Glucose (Fingerstick) 264 mg/dL (70-99) 282 mg/dL (70-99) 258 mg/dL (70-99) Heparin Anti-Xa Act, Unfractionated 0.59 IU/mL (0.30-0.70) Test 09/05/20 06:30 09/05/20 09:45 Sodium Level 135 mmol/L (136-145) Potassium Level 5.0 mmol/L (3.5-5.1) Chloride Level 99 mmol/L (98-107) Carbon Dioxide Level 25 mmol/L (21-32) Anion Gap 11 (6-14) Blood Urea Nitrogen 78 mg/dL (8-26) Creatinine 4.9 mg/dL (0.7-1.3) Estimated GFR (Cockcroft-Gault) 12.3 Glucose Level 194 mg/dL (70-99) Calcium Level 7.9 mg/dL (8.5-10.1) Phosphorus Level 6.8 mg/dL (2.6-4.7) Magnesium Level 2.9 mg/dL (1.8-2.4) Albumin 1.4 g/dL (3.4-5.0) O2 Saturation 73 % (92-99) Arterial Blood pH 7.20 (7.35-7.45) Arterial Blood pCO2 at Patient Temp 66 mmHg (35-46) Arterial Blood pO2 at Patient Temp 43 mmHg (75-108) Arterial Blood HCO3 25 mmol/L (21-28) Arterial Blood Base Excess -4 mmol/L (-3-3) FiO2 100 Comment Review of Relevant I have reviewed the following items lexa (where applicable) has been applied. Labs Laboratory Tests Test 09/03/20 12:13 09/03/20 17:30 09/03/20 23:35 09/04/20 06:18 Glucose (Fingerstick) 261 mg/dL (70-99) 257 mg/dL (70-99) 224 mg/dL (70-99) 210 mg/dL (70-99) Test 09/04/20 06:20 09/04/20 07:15 09/04/20 09:50 09/04/20 12:58 White Blood Count 12.6 x10^3/uL (4.0-11.0) Red Blood Count 4.20 x10^6/uL (4.30-5.70) Hemoglobin 10.4 g/dL (13.0-17.5) Hematocrit 32.6 % (39.0-53.0) Mean Corpuscular Volume 78 fL (79-100) Mean Corpuscular Hemoglobin 25 pg (25-35) Mean Corpuscular Hemoglobin Concent 32 g/dL (31-37) Red Cell Distribution Width 14.9 % (11.5-14.5) Platelet Count 211 x10^3/uL (140-400) Neutrophils (%) (Auto) 92 % (31-73) Lymphocytes (%) (Auto) 3 % (24-48) Monocytes (%) (Auto) 3 % (0-9) Eosinophils (%) (Auto) 1 % (0-3) Basophils (%) (Auto) 0 % (0-3) Neutrophils # (Auto) 11.6 x10^3/uL (1.8-7.7) Lymphocytes # (Auto) 0.4 x10^3/uL (1.0-4.8) Monocytes # (Auto) 0.4 x10^3/uL (0.0-1.1) Eosinophils # (Auto) 0.1 x10^3/uL (0.0-0.7) Basophils # (Auto) 0.0 x10^3/uL (0.0-0.2) Sodium Level 134 mmol/L (136-145) Potassium Level 5.0 mmol/L (3.5-5.1) Chloride Level 101 mmol/L (98-107) Carbon Dioxide Level 24 mmol/L (21-32) Anion Gap 9 (6-14) Blood Urea Nitrogen 85 mg/dL (8-26) Creatinine 5.0 mg/dL (0.7-1.3) Estimated GFR (Cockcroft-Gault) 12.0 BUN/Creatinine Ratio 17 (6-20) Glucose Level 205 mg/dL (70-99) Calcium Level 8.1 mg/dL (8.5-10.1) Phosphorus Level 5.8 mg/dL (2.6-4.7) Magnesium Level 3.4 mg/dL (1.8-2.4) Total Bilirubin 0.4 mg/dL (0.2-1.0) Aspartate Amino Transf (AST/SGOT) 96 U/L (15-37) Alanine Aminotransferase (ALT/SGPT) 66 U/L (16-63) Alkaline Phosphatase 145 U/L (46-116) Total Protein 5.9 g/dL (6.4-8.2) Albumin 1.4 g/dL (3.4-5.0) Albumin/Globulin Ratio 0.3 (1.0-1.7) Hepatitis B Surface Antigen Nonreactive (Nonreactive) Urine Collection Type Unknown Urine Color Urine Clarity Turbid Urine pH 5.0 (<5.0-8.0) Urine Specific [place] 1.020 (1.000-1.030) Urine Protein 30 mg/dL (NEG-TRACE) Urine Glucose (UA) Negative mg/dL (NEG) Urine Ketones (Stick) Negative mg/dL (NEG) Urine Blood Large (NEG) Urine Nitrite Negative (NEG) Urine Bilirubin Negative (NEG) Urine Urobilinogen Dipstick 0.2 mg/dL (0.2 mg/dL) Urine Leukocyte Esterase Small (NEG) Urine RBC 20-40 /HPF (0-2) Urine WBC 1-4 /HPF (0-4) Urine Squamous Epithelial Cells Few /LPF Urine Amorphous Sediment Present /HPF Urine Bacteria Few /HPF (0-FEW) Urine Hyaline Casts Few /HPF Urine Granular Casts Occasional /HPF Urine Random Sodium 35 mmol/L (Not Estab.) O2 Saturation 85 % (92-99) Arterial Blood pH 7.26 (7.35-7.45) Arterial Blood pCO2 at Patient Temp 58 mmHg (35-46) Arterial Blood pO2 at Patient Temp 55 mmHg (75-108) Arterial Blood HCO3 26 mmol/L (21-28) Arterial Blood Base Excess -2 mmol/L (-3-3) FiO2 100 Glucose (Fingerstick) 264 mg/dL (70-99) Test 09/04/20 17:36 09/04/20 23:33 09/05/20 01:20 09/05/20 06:30 Glucose (Fingerstick) 282 mg/dL (70-99) 258 mg/dL (70-99) Heparin Anti-Xa Act, Unfractionated 0.59 IU/mL (0.30-0.70) Sodium Level 135 mmol/L (136-145) Potassium Level 5.0 mmol/L (3.5-5.1) Chloride Level 99 mmol/L (98-107) Carbon Dioxide Level 25 mmol/L (21-32) Anion Gap 11 (6-14) Blood Urea Nitrogen 78 mg/dL (8-26) Creatinine 4.9 mg/dL (0.7-1.3) Estimated GFR (Cockcroft-Gault) 12.3 Glucose Level 194 mg/dL (70-99) Calcium Level 7.9 mg/dL (8.5-10.1) Phosphorus Level 6.8 mg/dL (2.6-4.7) Magnesium Level 2.9 mg/dL (1.8-2.4) Albumin 1.4 g/dL (3.4-5.0) Test 09/05/20 09:45 O2 Saturation 73 % (92-99) Arterial Blood pH 7.20 (7.35-7.45) Arterial Blood pCO2 at Patient Temp 66 mmHg (35-46) Arterial Blood pO2 at Patient Temp 43 mmHg (75-108) Arterial Blood HCO3 25 mmol/L (21-28) Arterial Blood Base Excess -4 mmol/L (-3-3) FiO2 100 Laboratory Tests Test 09/04/20 12:58 09/04/20 17:36 09/04/20 23:33 09/05/20 01:20 Glucose (Fingerstick) 264 mg/dL (70-99) 282 mg/dL (70-99) 258 mg/dL (70-99) Heparin Anti-Xa Act, Unfractionated 0.59 IU/mL (0.30-0.70) Test 09/05/20 06:30 09/05/20 09:45 Sodium Level 135 mmol/L (136-145) Potassium Level 5.0 mmol/L (3.5-5.1) Chloride Level 99 mmol/L (98-107) Carbon Dioxide Level 25 mmol/L (21-32) Anion Gap 11 (6-14) Blood Urea Nitrogen 78 mg/dL (8-26) Creatinine 4.9 mg/dL (0.7-1.3) Estimated GFR (Cockcroft-Gault) 12.3 Glucose Level 194 mg/dL (70-99) Calcium Level 7.9 mg/dL (8.5-10.1) Phosphorus Level 6.8 mg/dL (2.6-4.7) Magnesium Level 2.9 mg/dL (1.8-2.4) Albumin 1.4 g/dL (3.4-5.0) O2 Saturation 73 % (92-99) Arterial Blood pH 7.20 (7.35-7.45) Arterial Blood pCO2 at Patient Temp 66 mmHg (35-46) Arterial Blood pO2 at Patient Temp 43 mmHg (75-108) Arterial Blood HCO3 25 mmol/L (21-28) Arterial Blood Base Excess -4 mmol/L (-3-3) FiO2 100 Medications Current Medications Sennosides (Senna) 17.2 mg PRN BID PRN PO CONSTIPATION; Start 08/31/20 at 18:15 Docusate Sodium (Colace) 100 mg PRN DAILY PRN PO HARD STOOLS; Start 08/31/20 at 18:15 Ondansetron HCl (Zofran) 4 mg PRN Q6HRS PRN IVP NAUSEA/VOMITING; Start 1 11/01/19 at 18:15 Insulin Human Lispro (HumaLOG) 0-9 UNITS TIDWMEALS SQ ; Start 09/01/20 at 08:00; Stop 09/01/20 at 17:13; Status DC Dextrose (Dextrose 50%-Water Syringe) 12.5 gm PRN Q15MIN PRN IV SEE COMMENTS; Start 12/29/20 at 18:15 Enoxaparin Sodium (Lovenox 40mg Syringe) 40 mg Q24H SQ ; Start 08/31/20 at 21:00; Stop 08/31/20 at 18:36; Status DC Pantoprazole Sodium (PROTONIX VIAL for IV PUSH) 40 mg DAILYAC IVP Last administered on 09/05/20 07:58; Start 09/01/20 at 07:30 Enoxaparin Sodium (Lovenox 40mg Syringe) 40 mg BID SQ Last administered on 09/04/20 23:04; Start 08/31/20 at 21:00 Dexamethasone Sodium Phosphate (Decadron) 6 mg DAILY IVP Last administered on 09/05/20 07:56; Start 09/01/20 at 09:00 Ascorbic Acid (Vitamin C) 3,000 mg TID PO Last administered on 09/05/20 07:57; Start 08/31/20 at 21:00 Thiamine HCl 100 mg/Dextrose 51 ml @ 102 mls/hr Q8HRS IV Last administered on 09/05/20 06:14; Start 08/31/20 at 22:00 Insulin Glargine (Lantus Syringe) 40 unit DAILY SQ Last administered on 08:01; Start 09/01/20 at 09:00 Furosemide (Lasix) 20 mg DAILY PO ; Start 09/01/20 at 09:00; Stop 09/01/20 at 10:06; Status DC Metformin HCl (Glucophage) 850 mg BIDWMEALS PO ; Start 09/01/20 at 08:00; Stop 09/01/20 at 17:13; Status DC Methocarbamol (Robaxin) 750 mg BID PO Last administered on 08/31/20at 21:01; Start 08/31/20 at 21:00; Stop 09/01/20 at 17:13; Status DC Montelukast Sodium (Singulair) 10 mg HS PO Last administered on 08/31/20at 20:05; Start 08/31/20 at 21:00; Stop 09/01/20 at 17:13; Status DC Capsaicin (Zostrix) 1 chris QID TP Last administered on 08/31/20at 21:02; Start 08/31/20 at 21:00; Stop 09/01/20 at 17:13; Status DC Glycerin/ Hypromellose/ Polyethylene (Artificial Tears) 1 drop PRN BID PRN OU DRY EYE; Start 08/31/20 at 19:45; Stop 09/01/20 at 10:49; Status DC Gabapentin (Neurontin) 600 mg BID PO Last administered on 09/05/20at 07:58; S tart 08/31/20 at 21:00 Indomethacin (Indocin) 50 mg BIDWMEALS PO Last administered on 08/31/20at 21:02; Start 08/31/20 at 21:00; Stop 09/01/20 at 17:13; Status DC Losartan Potassium (Cozaar) 100 mg DAILY PO ; Start 09/01/20 at 09:00; Stop 09/01/20 at 10:06; Status DC Non-Formulary Medication (Omeprazole ) 20 mg DAILY PO ; Start 09/01/20 at 09:00; Status UNV Ropinirole HCl (Requip) 5 mg QHS PO Last administered on 08/31/20at 20:06; Start 08/31/20 at 21:00; Stop 09/01/20 at 17:13; Status DC Atorvastatin Calcium (Lipitor) 80 mg QHS PO Last administered on 09/04/20at 23:03; Start 08/31/20 at 21:00 Vitamin D (Vitamin D3) 1,000 unit DAILY PO Last administered on 09/05/20at 07:57; Start 09/01/20 at 09:00 Labetalol HCl (Normodyne Iv Push) 10 mg TID PRN PRN IVP SBP>180 Last administered on 09/02/20at 08:06; Start 08/31/20 at 21:45 Lorazepam (Ativan) 0.25 mg PRN Q6HRS PRN PO ANXIETY / AGITATION; Start 09/01/20 at 06:30 Benzonatate (Tessalon Perle) 100 mg PRN Q8HRS PRN PO COUGH Last administered on 09/01/20at 06:34; Start 09/01/20 at 06:30 Morphine Sulfate (Morphine Sulfate) 2 mg PRN Q2HR PRN IV PAIN Last administered on 09/01/20at 10:05; Start 09/01/20 at 06:30 Metoprolol Tartrate (Lopressor Vial) 5 mg 1X ONCE IVP ; Start 09/01/20 at 10:15; Stop 09/01/20 at 10:16; Status DC Acetaminophen (Tylenol Supp) 650 mg PRN Q6HRS PRN [place] MILD PAIN / TEMP > 100.3'F; Start 09/01/20 at 10:15 Metoprolol Tartrate (Lopressor Vial) 5 mg PRN Q6HRS PRN IVP SBP>160 Last administered on 09/02/20at 10:41; Start 09/01/20 at 10:15 Furosemide (Lasix) 20 mg DAILY IVP Last administered on 09/05/20at 07:57; Start 09/01/20 at 10:30 Succinylcholine Chloride (Anectine) 200 mg STK-MED ONCE .ROUTE ; Start 09/01/20 at 10:27; Stop 09/01/20 at 10:28; Status DC Etomidate (Amidate) 20 mg STK-MED ONCE IV ; Start 09/01/20 at 10:28; Stop 09/01/20 at 10:28; Status DC Midazolam HCl (Versed) 5 mg STK-MED ONCE .ROUTE ; Start 09/01/20 at 10:34; Stop 09/01/20 at 10:35; Status DC Fentanyl Citrate 30 ml @ 0 mls/hr CONT PRN IV SEE PROTOCOL Last administered on 09/01/20at 11:13; Start 09/01/20 at 10:45; Stop 09/01/20 at 15:00; Status DC Midazolam HCl 100 ml @ 0 mls/hr CONT PRN IV SEE PROTOCOL Last administered on 09/05/20 07:59; Start 09/01/20 at 10:45 Fentanyl Citrate 30 ml @ 0 mls/hr CONT PRN IV SEE PROTOCOL; Start 09/01/20 at 10:30; Status UNV Propofol 100 ml @ 0 mls/hr CONT PRN IV PER PROTOCOL Last administered on 09/05/20at 03:25; Start 09/01/20 at 10:30 Glycerin/ Hypromellose/ Polyethylene (Artificial Tears) 1 drop PRN Q1HR PRN OU DRY EYE; Start 09/01/20 at 10:30 Midazolam HCl 100 ml @ 0 mls/hr CONT PRN IV SEE PROTOCOL; Start 09/01/20 at 10:30; Status UNV Diphenhydramine HCl (Benadryl) 25 mg PRN Q15MIN PRN IVP EPS Symptoms; Start 09/01/20 at 10:30 Midazolam HCl (Versed) 5 mg 1X ONCE IV Last administered on 09/01/20at 11:07; Start 09/01/20 at 10:30; Stop 09/01/20 at 10:49; Status DC Etomidate (Amidate) 14 mg 1X ONCE IV Last administered on 09/01/20at 11:06; Start 09/01/20 at 11:00; Stop 09/01/20 at 11:02; Status DC Succinylcholine Chloride (Anectine) 120 mg 1X ONCE IV Last administered on 09/01/20at 11:03; Start 09/01/20 at 11:00; Stop 09/01/20 at 11:02; Status DC Vecuronium [place] (Norcuron Bolus) 10 mg STK-MED ONCE IV ; Start 09/01/20 at 11:09; Stop 09/01/20 at 11:09; Status DC Vecuronium [place] (Norcuron Bolus) 6 mg 1X ONCE IV Last administered on 09/01/20at 11:19; Start 09/01/20 at 11:15; Stop 09/01/20 at 11:17; Status DC Acetaminophen (Tylenol) 650 mg PRN Q6HRS PRN PEG MILD PAIN / TEMP > 100.3'F Last administered on 09/04/20 12:58; Start 09/01/20 at 12:00 Vecuronium [place] (Norcuron Bolus) 6 mg PRN Q1HR PRN IV SEE ADMIN INSTRUCTIONS Last administered on 09/05/20 09:27; Start 09/01/20 at 12:30 Furosemide (Lasix) 40 mg 1X ONCE IVP Last administered on 09/01/20at 13:00; Start 09/01/20 at 13:00; Stop 09/01/20 at 13:01; Status DC Dopamine HCl/ Dextrose 250 ml @ 26.063 mls/ hr CONT PRN IV SEE I/O RECORD; Start 09/01/20 at 13:00 Fentanyl Citrate 55 ml @ 0 mls/hr CONT PRN IV SEE PROTOCOL Last administered on 09/04/20 18:26; Start 09/01/20 at 14:15 Doxycycline Hyclate 100 mg/ Dextrose 100 ml @ 50 mls/hr Q12HR IV Last administered on 09/05/20at 07:59; Start 09/01/20 at 21:00 Ceftriaxone Sodium (Rocephin) 1 gm Q24H IVP Last administered on 09/04/20at 15:16; Start 09/01/20 at 15:00 Insulin Human Lispro (HumaLOG) 0-9 UNITS Q6HRS SQ Last administered on 09/05/20at 06:25; Start 09/01/20 at 18:00 Sodium Chloride 1,000 ml @ 100 mls/hr Q10H IV Last administered on 09/05/20at 03:24; Start 09/03/20 at 19:15 Sodium Chloride 500 ml @ 500 mls/hr 1X ONCE IV Last administered on 09/03/20at 20:26; Start 09/03/20 at 19:15; Stop 09/03/20 at 20:14; Status DC Magnesium Sulfate 50 ml @ 25 mls/hr PRN DAILY PRN IV for Mag < 1.7 on am labs; Start 09/03/20 at 19:30 Epinephrine HCl (EPINEPHrine SYRINGE) 1 mg STK-MED ONCE .ROUTE ; Start 09/02/20 at 15:00; Stop 09/04/20 at 11:58; Status DC Norepinephrine Bitartrate 8 mg/ Dextrose 258 ml @ 27.477 mls/ hr CONT PRN IV PER PROTOCOL Last administered on 09/04/20at 15:09; Start 09/04/20 at 15:00 Potassium Chloride 10 meq/ Magnesium Sulfate 5 meq/Calcium Chloride 15 meq/ Bicarbonate Dialysis Soln w/ out KCl 5,016.9643 ml @ 1,500 mls/hr Q3H21M IV Last administered on 09/04/20at 20:00; Start 09/04/20 at 16:00 Potassium Chloride 10 meq/ Magnesium Sulfate 5 meq/Calcium Chloride 15 meq/ Bicarbonate Dialysis Soln w/ out KCl 5,016.9643 ml @ 1,500 mls/hr Q3H21M IV Last administered on 09/04/20at 20:00; Start 09/04/20 at 16:00 Potassium Chloride 10 meq/ Magnesium Sulfate 5 meq/Calcium Chloride 15 meq/ Bicarbonate Dialysis Soln w/ out KCl 5,016.9643 ml @ 1,500 mls/hr Q3H21M IV Last administered on 09/04/20at 20:00; Start 09/04/20 at 16:00 Lidocaine HCl (Buffered Lidocaine 1%) 3 ml STK-MED ONCE .ROUTE ; Start 09/04/20 at 15:37; Stop 09/04/20 at 15:37; Status DC Lidocaine HCl (Buffered Lidocaine 1%) 6 ml 1X ONCE INJ Last administered on 09/04/20at 16:52; Start 09/04/20 at 16:45; Stop 09/04/20 at 16:48; Status DC Heparin Sodium/ Dextrose 250 ml @ 9.94 mls/hr CONT PRN IV PER PROTOCOL Last administered on 09/04/20at 18:37; Start 09/04/20 at 18:15 Heparin Sodium (Porcine) (Heparin Sodium) 3,550 unit PRN Q6HRS PRN IV FOR UFH LEVEL LESS THAN 0.2; Start 09/04/20 at 18:15 Albumin Human 100 ml @ 100 mls/hr TID IV Last administered on 09/05/20at 07:57; Start 09/05/20 at 09:00; Stop 09/06/20 at 21:59 Sodium Chloride 1,000 ml @ 1,000 mls/hr Q1H PRN IV hypotension; Start 09/04/20 at 22:45; Stop 09/05/20 at 04:44; Status DC Albumin Human 200 ml @ 200 mls/hr 1X PRN PRN IV Hypotension; Start 09/04/20 at 22:45; Stop 09/05/20 at 04:44; Status DC Sodium Chloride (Normal Saline Flush) 10 ml 1X PRN PRN IV AP catheter pack; Start 09/04/20 at 22:45; Stop 09/05/20 at 22:44 Sodium Chloride (Normal Saline Flush) 10 ml 1X PRN PRN IV RIPRAP MAN catheter pack; Start 09/04/20 at 22:45; Stop 09/05/20 at 22:44 Sodium Chloride 1,000 ml @ 400 mls/hr Q2H30M PRN IV PATENCY; Start 09/04/20 at 22:45; Stop 09/05/20 at 10:44; Status DC Info (PHARMACY MONITORING -- do not chart) 1 each PRN DAILY PRN MC SEE COMMENTS; Start 09/04/20 at 22:45 Info (PHARMACY MONITORING -- do not chart) 1 each PRN DAILY PRN MC SEE COMMENTS; Start 09/04/20 at 22:45; Stop 09/04/20 at 22:46; Status DC Active Scripts Active Reported [cholecalcif] 25 Mcg PO DAILY Capsaicin 42.5 Gm Cream..g. 1 Chris TP QID [albuterol 90MCG] 2 Puff INH QID Robaxin-750 (Methocarbamol) 750 Mg Tablet 1 Tab PO BID 30 Days Indomethacin 50 Mg Capsule 1 Cap PO BID 10 Days with food Omeprazole 20 Mg Tablet.dr 20 Mg PO DAILY Gabapentin 600 Mg Tablet 600 Mg PO BID Crestor (Rosuvastatin Calcium) 40 Mg Tablet 20 Mg PO HS Singulair Tablet (Montelukast Sodium) 10 Mg Tablet 10 Mg PO HS Metformin Hcl 850 Mg Tablet 850 Mg PO BIDWMEALS Losartan Potassium 100 Mg Tablet 100 Mg PO DAILY Lasix (Furosemide) 20 Mg Tablet 20 Mg PO DAILY Refresh Optive Eye Drops (Carboxymethylcellulos/Glycerin) 15 Ml Drops 1 Drop EACHEYE BID PRN Prednisone 20 Mg Tablet 10 Mg PO DAILY Ropinirole Hcl 5 Mg Tablet 5 Mg PO QHS Vitals/I & O Vital Sign - Last 24 Hours 09/04/20 09/04/20 09/04/20 09/04/20 11:08 11:45 12:00 12:00 Temp 101.0 101.0 Pulse 80 96 96 Resp 28 31 B/P (MAP) 119/46 (70) 131/51 (77) 128/51 (76) Pulse Ox 90 89 93 O2 Delivery Ventilator Ventilator Ventilator 09/04/20 09/04/20 09/04/20 09/04/20 12:00 13:08 14:22 15:11 Pulse 95 91 83 Resp 32 32 32 B/P (MAP) 124/53 (76) 81/42 (55) 131/55 (80) Pulse Ox 92 93 95 O2 Delivery Mechanical Ventilator Ventilator Ventilator Ventilator 09/04/20 09/04/20 09/04/20 09/04/20 16:00 16:16 16:18 16:20 Temp 98.5 98.5 Pulse 76 78 Resp 28 B/P (MAP) 123/51 (75) 124/55 (78) Pulse Ox 94 95 O2 Delivery Ventilator Ventilator Mechanical Ventilator 09/04/20 09/04/20 09/04/20 09/04/20 17:03 17:59 18:26 18:56 Pulse 75 74 Resp 29 29 32 29 B/P (MAP) 113/49 (70) 133/53 (79) Pulse Ox 96 97 97 97 O2 Delivery Ventilator Ventilator Ventilator Ventilator O2 Flow Rate 95.0 95.0 09/04/20 09/04/20 09/04/20 09/04/20 18:59 20:00 20:00 20:00 Temp 99.5 99.5 Pulse 76 80 Resp 31 29 B/P (MAP) 100/45 (63) 160/74 (102) Pulse Ox 96 96 O2 Delivery Ventilator Ventilator Mechanical Ventilator 09/04/20 09/04/20 09/04/20 09/04/20 20:20 21:00 22:00 23:00 Pulse 77 76 71 Resp 30 30 30 B/P (MAP) 128/58 (81) 125/52 (76) 119/49 (72) Pulse Ox 97 95 94 95 O2 Delivery Ventilator Ventilator Ventilator Ventilator 09/05/20 09/05/20 09/05/20 09/05/20 00:00 00:00 00:00 00:42 Temp 98.3 98.3 Pulse 71 Resp 30 B/P (MAP) 140/62 (88) Pulse Ox 94 97 O2 Delivery Ventilator Mechanical Ventilator Ventilator 09/05/20 09/05/20 09/05/20 09/05/20 01:00 02:00 03:00 04:00 Temp 99.2 99.2 Pulse 73 74 72 72 Resp 30 30 30 30 B/P (MAP) 116/58 (77) 125/42 (69) 120/41 (67) 151/45 (80) Pulse Ox 93 98 96 94 O2 Delivery Ventilator Ventilator Ventilator Ventilator 09/05/20 09/05/20 09/05/20 09/05/20 04:00 04:00 04:40 05:00 Pulse 72 Resp 30 B/P (MAP) 145/45 (78) Pulse Ox 97 95 O2 Delivery Mechanical Ventilator Ventilator Ventilator 09/05/20 09/05/20 09/05/20 09/05/20 06:00 07:09 08:00 08:30 Temp 99.7 99.7 Pulse 88 85 94 Resp 30 30 30 B/P (MAP) 159/50 (86) 151/49 (83) 197/59 (105) Pulse Ox 93 92 90 O2 Delivery Ventilator Ventilator Ventilator 09/05/20 09/05/20 09/05/20 09/05/20 08:31 09:04 09:40 10:17 Pulse 91 96 Resp 30 30 B/P (MAP) 187/54 (98) 177/52 (93) Pulse Ox 91 87 88 O2 Delivery Mechanical Ventilator Ventilator Ventilator Ventilator 09/05/20 11:02 Pulse 99 Resp 30 B/P (MAP) 181/54 (96) Pulse Ox 90 O2 Delivery Ventilator Intake and Output 09/04/20 09/04/20 09/05/20 15:00 23:00 07:00 Intake Total 100 ml 1414 ml 3859.2 ml Output Total 325 ml 325 ml 1210 ml Balance -225 ml 1089 ml 2649.2 ml Justicifation of Admission Dx: Justifications for Admission: Justification of Admission Dx: Yes Comminuty Aquired Pneumonia: Hypoxemia Chronic Renal Failure: Encephalopathy Sepsis: Hypoxemia LUIS TRIPLETT MD Sep 05, 2020 11:03
[2020-09-05] MEDS: MORPHINE SULFATE 2 MG/ML VIAL. IV PRN (12:13)
--- NOTE | 2020-09-05 13:26 | NUR ---
At 1223, with family at bedside, we withdrew care. Patient was extubated, and at 1225 was pronounced . 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
--- NOTE | 2020-09-05 13:59 | PDOC3 ---
Discharge Summary Date of Admission: Aug 31, 2020 Date of Discharge: Sep 05, 2020 Follow-Up: Other () Admitting Diagnosis comment: HOSPITAL SUMMARY ======== Assessment/Plan Acute hypoxic respiratory failure due to COVID-19 infection requiring BiPAP support Diabetes mellitus Morbid obesity intubated 09/01 now on vent at 100% and PEEP of 15 febrile overnight PLAN Admit to ICU for close respiratory monitoring Pulmonology consult vent at 100% and PEEP of 15 Continue IV dexamethasone 6 mg daily Lovenox twice daily for DVT prophylaxis Protonix while on steroids GI prophylaxis ADA diet Full code Discussed with RN Disposition inpatient management as above Surrogate decision maker is the PCXR 36 minutes of critical care time Justifications for Admission Justifications for Admission Other Justification Acute respiratory failure due to COVID History of Present Illness History of Present Illness Chief Complaint: Chief Complain: COVID pneumonia History of Present Illness: HPI: History obtained from patient and transferring physician Dr. Ramos from the [place] Patient is a 60-year-old male with past medical history of insulin dependent diabetes mellitus, morbid obesity, MARGARITO who was transferred due to acute respiratory failure due to COVID-19 infection. Patient was tested positive for Covid on 08/25/2020 patient was treated with IV remdesivir and Decadron he did finish 5 days of IV antibiotics and has still continued to be fever with a T-max of 101 F. He was tested for procalcitonin and it was been negative x2. Patient was initially placed on nasal cannula at and transition to Vapotherm and he needed to go up on his requirements to 40 L and he has been on BiPAP now 100% FiO2 for the past 2 days. Patient's D-dimer was also elevated and a chest CTA was ordered which was negative, this was done on Sunday. The reason for the transfer is to have a pulmonology specialist to oversee their care. [place] physician has attempted to transfer to [facility] but the beds are full at this time. Currently the patient denies any respiratory distress he is currently saturating 100% on FiO2 of 100% BiPAP in the ICU. Currently denies fevers, chest pain, abdominal pain, diarrhea, dysuria, or hemoptysis. Past Medical/Surgical History: PMH/PSH: DM insulin dependent, CAD, HTN MARGARITO- compliant with CPAP Morbid Obesity Hx of LBBB Allergies: Allergies: Coded Allergies: flunisolide (Verified Adverse Reaction, Mild, insufficient response, 08/31/20) lisinopril (Verified Adverse Reaction, Mild, cough, 08/31/20) Family History: Family History: Reviewed with no relevant findings Social History: Social History: Denies alcohol, tobacco, drug abuse Current Medications: Current Medications Vitals Vitals Vital Signs Date Time Temp Pulse Resp B/P (MAP) Pulse Ox O2 Delivery O2 Flow Rate FiO2 09/05/20 11:02 99 30 181/54 (96) 90 Ventilator 09/05/20 08:30 99.7 99.7 09/04/20 18:56 95.0 Physical Exam Physical Exam Physcial Exam: [id number] General: Cooperative Extremities: No cyanosis Labs LABS Brief Hospital Course Mr. Michelle is a 60 old [sex] who presented with [ COVID POS PNEUMONIA, SEPSIS] CONDITION AT DISCHARGE: / Discharge Medications Current Medications Sennosides (Senna) 17.2 mg PRN BID PRN PO CONSTIPATION; Start 08/31/20 at 18:15; Stop 09/05/20 at 13:33; Status DC Docusate Sodium (Colace) 100 mg PRN DAILY PRN PO HARD STOOLS; Start 08/31/20 at 18:15; Stop 09/05/20 at 13:33; Status DC Ondansetron HCl (Zofran) 4 mg PRN Q6HRS PRN IVP NAUSEA/VOMITING; Start 08/31/20 at 18:15; Stop 09/05/20 at 13:33; Status DC Insulin Human Lispro (HumaLOG) 0-9 UNITS TIDWMEALS SQ ; Start 09/01/20 at 08:00; Stop 09/01/20 at 17:13; Status DC Dextrose (Dextrose 50%-Water Syringe) 12.5 gm PRN Q15MIN PRN IV SEE COMMENTS; Start 08/31/20 at 18:15; Stop 09/05/20 at 13:33; Status DC Enoxaparin Sodium (Lovenox 40mg Syringe) 40 mg Q24H SQ ; Start 08/31/20 at 21:00; Stop 08/31/20 at 18:36; Status DC Pantoprazole Sodium (PROTONIX VIAL for IV PUSH) 40 mg DAILYAC IVP Last administered on 09/05/20 07:58; Start 09/01/20 at 07:30; Stop 09/05/20 at 13:33; Status DC Enoxaparin Sodium (Lovenox 40mg Syringe) 40 mg BID SQ Last administered on 09/04/20at 23:04; Start 08/31/20 at 21:00; Stop 09/05/20 at 13:33; Status DC Dexamethasone Sodium Phosphate (Decadron) 6 mg DAILY IVP Last administered on 09/05/20at 07:56; Start 09/01/20 at 09:00; Stop 09/05/20 at 13:33; Status DC Ascorbic Acid (Vitamin C) 3,000 mg TID PO Last administered on 09/05/20 07:57; Start 08/31/20 at 21:00; Stop 09/05/20 at 13:33; Status DC Thiamine HCl 100 mg/Dextrose 51 ml @ 102 mls/hr Q8HRS IV Last administered on 09/05/20at 06:14; Start 08/31/20 at 22:00; Stop 09/05/20 at 13:33; Status DC Insulin Glargine (Lantus Syringe) 40 unit DAILY SQ Last administered on 09/05/20at 08:01; Start 09/01/20 at 09:00; Stop 09/05/20 at 13:33; Status DC Furosemide (Lasix) 20 mg DAILY PO ; Start 09/01/20 at 09:00; Stop 09/01/20 at 10:06; Status DC Metformin HCl (Glucophage) 850 mg BIDWMEALS PO ; Start 09/01/20 at 08:00; Stop 09/01/20 at 17:13; Status DC Methocarbamol (Robaxin) 750 mg BID PO Last administered on 08/31/20at 21:01; Start 08/31/20 at 21:00; Stop 09/01/20 at 17:13; Status DC Montelukast Sodium (Singulair) 10 mg HS PO Last administered on 08/31/20at 20:05; Start 08/31/20 at 21:00; Stop 09/01/20 at 17:13; Status DC Capsaicin (Zostrix) 1 chris QID TP Last administered on 08/31/20at 21:02; Start 08/31/20 at 21:00; Stop 09/01/20 at 17:13; Status DC Glycerin/ Hypromellose/ Polyethylene (Artificial Tears) 1 drop PRN BID PRN OU DRY EYE; Start 08/31/20 at 19:45; Stop 09/01/20 at 10:49; Status DC Gabapentin (Neurontin) 600 mg BID PO Last administered on 09/05/20at 07:58; Start 08/31/20 at 21:00; Stop 09/05/20 at 13:33; Status DC Indomethacin (Indocin) 50 mg BIDWMEALS PO Last administered on 08/31/20at 21:02; Start 08/31/20 at 21:00; Stop 09/01/20 at 17:13; Status DC Losartan Potassium (Cozaar) 100 mg DAILY PO ; Start 09/01/20 at 09:00; Stop 09/01/20 at 10:06; Status DC Non-Formulary Medication (Omeprazole ) 20 mg DAILY PO ; Start 09/01/20 at 09:00; Status UNV Ropinirole HCl (Requip) 5 mg QHS PO Last administered on 08/31/20at 20:06; Start 08/31/20 at 21:00; Stop 09/01/20 at 17:13; Status DC Atorvastatin Calcium (Lipitor) 80 mg QHS PO Last administered on 09/04/20at 23:03; Start 08/31/20 at 21:00; Stop 09/05/20 at 13:33; Status DC Vitamin D (Vitamin D3) 1,000 unit DAILY PO Last administered on 09/05/20at 07:57; Start 09/01/20 at 09:00; Stop 09/05/20 at 13:33; Status DC Labetalol HCl (Normodyne Iv Push) 10 mg TID PRN PRN IVP SBP>180 Last administered on 09/02/20at 08:06; Start 08/31/20 at 21:45; Stop 09/05/20 at 13:33; Status DC Lorazepam (Ativan) 0.25 mg PRN Q6HRS PRN PO ANXIETY / AGITATION; Start at 06:30; Stop 09/05/20 at 13:33; Status DC Benzonatate (Tessalon Perle) 100 mg PRN Q8HRS PRN PO COUGH Last administered on 09/01/20at 06:34; Start 09/01/20 at 06:30; Stop 09/05/20 at 13:33; Status DC Morphine Sulfate (Morphine Sulfate) 2 mg PRN Q2HR PRN IV PAIN Last administered on 09/05/20at 12:13; Start 09/01/20 at 06:30; Stop 09/05/20 at 13:33; Status DC Metoprolol Tartrate (Lopressor Vial) 5 mg 1X ONCE IVP ; Start 09/01/20 at 10:15; Stop 09/01/20 at 10:16; Status DC Acetaminophen (Tylenol Supp) 650 mg PRN Q6HRS PRN MS MILD PAIN / TEMP > 100.3'F; Start 09/01/20 at 10:15; Stop 09/05/20 at 13:33; Status DC Metoprolol Tartrate (Lopressor Vial) 5 mg PRN Q6HRS PRN IVP SBP>160 Last administered on 09/02/20at 10:41; Start 09/01/20 at 10:15; Stop 09/05/20 at 13:33; Status DC Furosemide (Lasix) 20 mg DAILY IVP Last administered on 09/05/20at 07:57; Start 09/01/20 at 10:30; Stop 09/05/20 at 13:33; Status DC Succinylcholine Chloride (Anectine) 200 mg STK-MED ONCE .ROUTE ; Start 09/01/20 at 10:27; Stop 09/01/20 at 10:28; Status DC Etomidate (Amidate) 20 mg STK-MED ONCE IV ; Start 09/01/20 at 10:28; Stop 09/01/20 at 10:28; Status DC Midazolam HCl (Versed) 5 mg STK-MED ONCE .ROUTE ; Start 09/01/20 at 10:34; Stop 09/01/20 at 10:35; Status DC Fentanyl Citrate 30 ml @ 0 mls/hr CONT PRN IV SEE PROTOCOL Last administered on 09/01/20at 11:13; Start 09/01/20 at 10:45; Stop 09/01/20 at 15:00; Status DC Midazolam HCl 100 ml @ 0 mls/hr CONT PRN IV SEE PROTOCOL Last administered on 09/05/20at 07:59; Start 09/01/20 at 10:45; Stop 09/05/20 at 13:33; Status DC Fentanyl Citrate 30 ml @ 0 mls/hr CONT PRN IV SEE PROTOCOL; Start 09/01/20 at 10:30; Status UNV Propofol 100 ml @ 0 mls/hr CONT PRN IV PER PROTOCOL Last administered on 09/05/20at 03:25; Start 09/01/20 at 10:30; Stop 09/05/20 at 13:33; Status DC Glycerin/ Hypromellose/ Polyethylene (Artificial Tears) 1 drop PRN Q1HR PRN OU DRY EYE; Start 09/01/20 at 10:30; Stop 09/05/20 at 13:33; Status DC Midazolam HCl 100 ml @ 0 mls/hr CONT PRN IV SEE PROTOCOL; Start 09/01/20 at 10:30; Status UNV Diphenhydramine HCl (Benadryl) 25 mg PRN Q15MIN PRN IVP EPS Symptoms; Start 09/01/20 at 10:30; Stop 09/05/20 at 13:33; Status DC Midazolam HCl (Versed) 5 mg 1X ONCE IV Last administered on 09/01/20at 11:07; Start 09/01/20 at 10:30; Stop 09/01/20 at 10:49; Status DC Etomidate (Amidate) 14 mg 1X ONCE IV Last administered on 09/01/20at 11:06; Start 09/01/20 at 11:00; Stop 09/01/20 at 11:02; Status DC Succinylcholine Chloride (Anectine) 120 mg 1X ONCE IV Last administered on 09/01/20at 11:03; Start 09/01/20 at 11:00; Stop 09/01/20 at 11:02; Status DC Vecuronium [place] (Norcuron Bolus) 10 mg STK-MED ONCE IV ; Start 09/01/20 at 11:09; Stop 09/01/20 at 11:09; Status DC Vecuronium [place] (Norcuron Bolus) 6 mg 1X ONCE IV Last administered on 09/01/20at 11:19; Start 09/01/20 at 11:15; Stop 09/01/20 at 11:17; Status DC Acetaminophen (Tylenol) 650 mg PRN Q6HRS PRN PEG MILD PAIN / TEMP > 100.3'F Last administered on 09/04/20at 12:58; Start 09/01/20 at 12:00; Stop 09/05/20 at 13:33; Status DC Vecuronium [place] (Norcuron Bolus) 6 mg PRN Q1HR PRN IV SEE ADMIN INSTRUCTIONS Last administered on 09/05/20at 09:27; Start 09/01/20 at 12:30; Stop 09/05/20 at 13:33; Status DC Furosemide (Lasix) 40 mg 1X ONCE IVP Last administered on 09/01/20at 13:00; Start 09/01/20 at 13:00; Stop 09/01/20 at 13:01; Status DC Dopamine HCl/ Dextrose 250 ml @ 26.063 mls/ hr CONT PRN IV SEE I/O RECORD; Start 09/01/20 at 13:00; Stop 09/05/20 at 13:33; Status DC Fentanyl Citrate 55 ml @ 0 mls/hr CONT PRN IV SEE PROTOCOL Last administered on 09/04/20at 18:26; Start 09/01/20 at 14:15; Stop 09/05/20 at 13:33; Status DC Doxycycline Hyclate 100 mg/ Dextrose 100 ml @ 50 mls/hr Q12HR IV Last administered on 09/05/20at 07:59; Start 09/01/20 at 21:00; Stop 09/05/20 at 13:33; Status DC Ceftriaxone Sodium (Rocephin) 1 gm Q24H IVP Last administered on 09/04/20at 15:16; Start 09/01/20 at 15:00; Stop 09/05/20 at 13:33; Status DC Insulin Human Lispro (HumaLOG) 0-9 UNITS Q6HRS SQ Last administered on 09/05/20at 06:25; Start 09/01/20 at 18:00; Stop 09/05/20 at 13:33; Status DC Sodium Chloride 1,000 ml @ 100 mls/hr Q10H IV Last administered on 09/05/20at 03:24; Start 09/03/20 at 19:15; Stop 09/05/20 at 13:33; Status DC Sodium Chloride 500 ml @ 500 mls/hr 1X ONCE IV Last administered on 09/03/20at 20:26; Start 09/03/20 at 19:15; Stop 09/03/20 at 20:14; Status DC Magnesium Sulfate 50 ml @ 25 mls/hr PRN DAILY PRN IV for Mag < 1.7 on am labs; Start 09/03/20 at 19:30; Stop 09/05/20 at 13:33; Status DC Epinephrine HCl (EPINEPHrine SYRINGE) 1 mg STK-MED ONCE .ROUTE ; Start 09/02/20 at 15:00; Stop 09/04/20 at 11:58; Status DC Norepinephrine Bitartrate 8 mg/ Dextrose 258 ml @ 27.477 mls/ hr CONT PRN IV PER PROTOCOL Last administered on 09/04/20at 15:09; Start 09/04/20 at 15:00; Stop 09/05/20 at 13:33; Status DC Potassium Chloride 10 meq/ Magnesium Sulfate 5 meq/Calcium Chloride 15 meq/ Bic arbonate Dialysis Soln w/ out KCl 5,016.9643 ml @ 1,500 mls/hr Q3H21M IV Last administered on 09/04/20at 20:00; Start 09/04/20 at 16:00; Stop 09/05/20 at 13:33; Status DC Potassium Chloride 10 meq/ Magnesium Sulfate 5 meq/Calcium Chloride 15 meq/ Bicarbonate Dialysis Soln w/ out KCl 5,016.9643 ml @ 1,500 mls/hr Q3H21M IV Last administered on 09/04/20at 20:00; Start 09/04/20 at 16:00; Stop 09/05/20 at 13:33; Status DC Potassium Chloride 10 meq/ Magnesium Sulfate 5 meq/Calcium Chloride 15 meq/ Bicarbonate Dialysis Soln w/ out KCl 5,016.9643 ml @ 1,500 mls/hr Q3H21M IV Last administered on 09/04/20at 20:00; Start 09/04/20 at 16:00; Stop 09/05/20 at 13:33; Status DC Lidocaine HCl (Buffered Lidocaine 1%) 3 ml STK-MED ONCE .ROUTE ; Start 09/04/20 at 15:37; Stop 09/04/20 at 15:37; Status DC Lidocaine HCl (Buffered Lidocaine 1%) 6 ml 1X ONCE INJ Last administered on 09/04/20at 16:52; Start 09/04/20 at 16:45; Stop 09/04/20 at 16:48; Status DC Heparin Sodium/ Dextrose 250 ml @ 9.94 mls/hr CONT PRN IV PER PROTOCOL Last administered on 09/04/20at 18:37; Start 09/04/20 at 18:15; Stop 09/05/20 at 13:33; Status DC Heparin Sodium (Porcine) (Heparin Sodium) 3,550 unit PRN Q6HRS PRN IV FOR UFH LEVEL LESS THAN 0.2; Start 09/04/20 at 18:15; Stop 09/05/20 at 13:33; Status DC Albumin Human 100 ml @ 100 mls/hr TID IV Last administered on 09/05/20at 07:57; Start 09/05/20 at 09:00; Stop 09/05/20 at 13:33; Status DC Sodium Chloride 1,000 ml @ 1,000 mls/hr Q1H PRN IV hypotension; Start 09/04/20 at 22:45; Stop 09/05/20 at 04:44; Status DC Albumin Human 200 ml @ 200 mls/hr 1X PRN PRN IV Hypotension; Start 09/04/20 at 22:45; Stop 09/05/20 at 04:44; Status DC Sodium Chloride (Normal Saline Flush) 10 ml 1X PRN PRN IV AP catheter pack; Start 09/04/20 at 22:45; Stop 09/05/20 at 13:33; Status DC Sodium Chloride (Normal Saline Flush) 10 ml 1X PRN PRN IV DISPLAY MANAGER catheter pack; Start 09/04/20 at 22:45; Stop 09/05/20 at 13:33; Status DC Sodium Chloride 1,000 ml @ 400 mls/hr Q2H30M PRN IV PATENCY; Start 09/04/20 at 22:45; Stop 09/05/20 at 10:44; Status DC Info (PHARMACY MONITORING -- do not chart) 1 each PRN DAILY PRN MC SEE COMMENTS; Start 09/04/20 at 22:45; Stop 09/05/20 at 13:33; Status DC Info (PHARMACY MONITORING -- do not chart) 1 each PRN DAILY PRN MC SEE COMMENTS; Start 09/04/20 at 22:45; Stop 09/04/20 at 22:46; Status DC Active Scripts Active Reported [cholecalcif] 25 Mcg PO DAILY Capsaicin 42.5 Gm Cream..g. 1 Chris TP QID [albuterol 90MCG] 2 Puff INH QID Robaxin-750 (Methocarbamol) 750 Mg Tablet 1 Tab PO BID 30 Days Indomethacin 50 Mg Capsule 1 Cap PO BID 10 Days with food Omeprazole 20 Mg Tablet.dr 20 Mg PO DAILY Gabapentin 600 Mg Tablet 600 Mg PO BID Crestor (Rosuvastatin Calcium) 40 Mg Tablet 20 Mg PO HS Singulair Tablet (Montelukast Sodium) 10 Mg Tablet 10 Mg PO HS Metformin Hcl 850 Mg Tablet 850 Mg PO BIDWMEALS Losartan Potassium 100 Mg Tablet 100 Mg PO DAILY Lasix (Furosemide) 20 Mg Tablet 20 Mg PO DAILY Refresh Optive Eye Drops (Carboxymethylcellulos/Glycerin) 15 Ml Drops 1 Drop EACHEYE BID PRN Prednisone 20 Mg Tablet 10 Mg PO DAILY Ropinirole Hcl 5 Mg Tablet 5 Mg PO QHS Vital Signs Vital Signs Date Time Temp Pulse Resp B/P (MAP) Pulse Ox O2 Delivery O2 Flow Rate FiO2 09/05/20 12:13 91 95.0 09/05/20 12:01 98 32 166/59 (94) Ventilator 09/05/20 08:30 99.7 99.7 Labs Laboratory Tests Test 09/03/20 17:30 09/03/20 23:35 09/04/20 06:18 09/04/20 06:20 Glucose (Fingerstick) 257 mg/dL (70-99) 224 mg/dL (70-99) 210 mg/dL (70-99) White Blood Count 12.6 x10^3/uL (4.0-11.0) Red Blood Count 4.20 x10^6/uL (4.30-5.70) Hemoglobin 10.4 g/dL (13.0-17.5) Hematocrit 32.6 % (39.0-53.0) Mean Corpuscular Volume 78 fL (79-100) Mean Corpuscular Hemoglobin 25 pg (25-35) Mean Corpuscular Hemoglobin Concent 32 g/dL (31-37) Red Cell Distribution Width 14.9 % (11.5-14.5) Platelet Count 211 x10^3/uL (140-400) Neutrophils (%) (Auto) 92 % (31-73) Lymphocytes (%) (Auto) 3 % (24-48) Monocytes (%) (Auto) 3 % (0-9) Eosinophils (%) (Auto) 1 % (0-3) Basophils (%) (Auto) 0 % (0-3) Neutrophils # (Auto) 11.6 x10^3/uL (1.8-7.7) Lymphocytes # (Auto) 0.4 x10^3/uL (1.0-4.8) Monocytes # (Auto) 0.4 x10^3/uL (0.0-1.1) Eosinophils # (Auto) 0.1 x10^3/uL (0.0-0.7) Basophils # (Auto) 0.0 x10^3/uL (0.0-0.2) Sodium Level 134 mmol/L (136-145) Potassium Level 5.0 mmol/L (3.5-5.1) Chloride Level 101 mmol/L (98-107) Carbon Dioxide Level 24 mmol/L (21-32) Anion Gap 9 (6-14) Blood Urea Nitrogen 85 mg/dL (8-26) Creatinine 5.0 mg/dL (0.7-1.3) Estimated GFR (Cockcroft-Gault) 12.0 BUN/Creatinine Ratio 17 (6-20) Glucose Level 205 mg/dL (70-99) Calcium Level 8.1 mg/dL (8.5-10.1) Phosphorus Level 5.8 mg/dL (2.6-4.7) Magnesium Level 3.4 mg/dL (1.8-2.4) Total Bilirubin 0.4 mg/dL (0.2-1.0) Aspartate Amino Transf (AST/SGOT) 96 U/L (15-37) Alanine Aminotransferase (ALT/SGPT) 66 U/L (16-63) Alkaline Phosphatase 145 U/L (46-116) Total Protein 5.9 g/dL (6.4-8.2) Albumin 1.4 g/dL (3.4-5.0) Albumin/Globulin Ratio 0.3 (1.0-1.7) Hepatitis B Surface Antigen Nonreactive (Nonreactive) Test 09/04/20 07:15 09/04/20 09:50 09/04/20 12:58 09/04/20 17:36 Urine Collection Type Unknown Urine Color Urine Clarity Turbid Urine pH 5.0 (<5.0-8.0) Urine Specific [place] 1.020 (1.000-1.030) Urine Protein 30 mg/dL (NEG-TRACE) Urine Glucose (UA) Negative mg/dL (NEG) Urine Ketones (Stick) Negative mg/dL (NEG) Urine Blood Large (NEG) Urine Nitrite Negative (NEG) Urine Bilirubin Negative (NEG) Urine Urobilinogen Dipstick 0.2 mg/dL (0.2 mg/dL) Urine Leukocyte Esterase Small (NEG) Urine RBC 20-40 /HPF (0-2) Urine WBC 1-4 /HPF (0-4) Urine Squamous Epithelial Cells Few /LPF Urine Amorphous Sediment Present /HPF Urine Bacteria Few /HPF (0-FEW) Urine Hyaline Casts Few /HPF Urine Granular Casts Occasional /HPF Urine Random Sodium 35 mmol/L (Not Estab.) O2 Saturation 85 % (92-99) Arterial Blood pH 7.26 (7.35-7.45) Arterial Blood pCO2 at Patient Temp 58 mmHg (35-46) Arterial Blood pO2 at Patient Temp 55 mmHg (75-108) Arterial Blood HCO3 26 mmol/L (21-28) Arterial Blood Base Excess -2 mmol/L (-3-3) FiO2 100 Glucose (Fingerstick) 264 mg/dL (70-99) 282 mg/dL (70-99) Test 09/04/20 23:33 09/05/20 01:20 09/05/20 06:30 09/05/20 09:45 Glucose (Fingerstick) 258 mg/dL (70-99) Heparin Anti-Xa Act, Unfractionated 0.59 IU/mL (0.30-0.70) Sodium Level 135 mmol/L (136-145) Potassium Level 5.0 mmol/L (3.5-5.1) Chloride Level 99 mmol/L (98-107) Carbon Dioxide Level 25 mmol/L (21-32) Anion Gap 11 (6-14) Blood Urea Nitrogen 78 mg/dL (8-26) Creatinine 4.9 mg/dL (0.7-1.3) Estimated GFR (Cockcroft-Gault) 12.3 Glucose Level 194 mg/dL (70-99) Calcium Level 7.9 mg/dL (8.5-10.1) Phosphorus Level 6.8 mg/dL (2.6-4.7) Magnesium Level 2.9 mg/dL (1.8-2.4) Albumin 1.4 g/dL (3.4-5.0) O2 Saturation 73 % (92-99) Arterial Blood pH 7.20 (7.35-7.45) Arterial Blood pCO2 at Patient Temp 66 mmHg (35-46) Arterial Blood pO2 at Patient Temp 43 mmHg (75-108) Arterial Blood HCO3 25 mmol/L (21-28) Arterial Blood Base Excess -4 mmol/L (-3-3) FiO2 100 Laboratory Tests Test 09/04/20 17:36 09/04/20 23:33 09/05/20 01:20 09/05/20 06:30 Glucose (Fingerstick) 282 mg/dL (70-99) 258 mg/dL (70-99) Heparin Anti-Xa Act, Unfractionated 0.59 IU/mL (0.30-0.70) Sodium Level 135 mmol/L (136-145) Potassium Level 5.0 mmol/L (3.5-5.1) Chloride Level 99 mmol/L (98-107) Carbon Dioxide Level 25 mmol/L (21-32) Anion Gap 11 (6-14) Blood Urea Nitrogen 78 mg/dL (8-26) Creatinine 4.9 mg/dL (0.7-1.3) Estimated GFR (Cockcroft-Gault) 12.3 Glucose Level 194 mg/dL (70-99) Calcium Level 7.9 mg/dL (8.5-10.1) Phosphorus Level 6.8 mg/dL (2.6-4.7) Magnesium Level 2.9 mg/dL (1.8-2.4) Albumin 1.4 g/dL (3.4-5.0) Test 09/05/20 09:45 O2 Saturation 73 % (92-99) Arterial Blood pH 7.20 (7.35-7.45) Arterial Blood pCO2 at Patient Temp 66 mmHg (35-46) Arterial Blood pO2 at Patient Temp 43 mmHg (75-108) Arterial Blood HCO3 25 mmol/L (21-28) Arterial Blood Base Excess -4 mmol/L (-3-3) FiO2 100 Allergies Allergies Coded Allergies Type Severity Reaction Last Updated Verified flunisolide Adverse Reaction Mild insufficient response 08/31/20 Yes lisinopril Adverse Reaction Mild cough 08/31/20 Yes Disposition/Orders: Justicifation of Admission Dx: Justifications for Admission: Justification of Admission Dx: Yes Comminuty Aquired Pneumonia: Hypoxemia Chronic Renal Failure: Encephalopathy Sepsis: Hypoxemia LUIS TRIPLETT MD Sep 05, 2020 13:59
--- NOTE | 2020-09-06 08:48 | RAD ---
Procedure: Ultrasound-guided placement of left internal jugular temporary dialysis catheter 09/06/2020 6:44 AM Clinical Indication: Renal failure CRRT, possible hemodialysis, RENAL FAILURE Discussion: The risks and benefits of the procedure were discussed the patient and/or their renewals representative. Informed consent was obtained. A timeout procedure was performed. All elements of maximal sterile barrier technique including the use of a cap, mask, sterile gown, sterile gloves, large sterile sheet, appropriate hand hygiene, and 2% chlorhexidine for cutaneous antisepsis (or acceptable alternative antiseptic per current guidelines) were followed for this procedure. The patient was prepped and draped in the usual sterile fashion. Ultrasound interrogation of the right neck revealed patency and compressibility of the left internal jugular vein. A 21-gauge micropuncture was then used to gain access to this vein under ultrasound guidance. A hard copy ultrasound image was recorded. A guidewire was advanced centrally. 5 [place] sheath was placed. Over a wire following dilatation, a temporary dialysis catheter was advanced centrally. Catheter was found to flush and aspirate normally. Follow-up chest radiograph demonstrates tip in acceptable position. The catheter was secured in place and a sterile dressing was applied. No immediate complications were identified. Impression: Successful ultrasound-guided placement of left internal jugular temporary dialysis catheter
== END 2020-09-05 13:32 | DRG 208 ==
LOC: 1 WEST ICU 16:50
PROVIDERS: ADMIT Internal Medicine; ATTEND Internal Medicine
PROC: 5A09357 Assistance with Respiratory Ventilation, Less than 24 Consecutive Hours, Continuous Positive Airway Pressure (ICD-10-PCS; 2020-08-31)
PROC: 0BH17EZ Insertion of Endotracheal Airway into Trachea, Via Natural or Artificial Opening (ICD-10-PCS; principal; 2020-09-01)
PROC: 5A1945Z Respiratory Ventilation, 24-96 Consecutive Hours (ICD-10-PCS; 2020-09-01)
PROC: 5A1D70Z Performance of Urinary Filtration, Intermittent, Less than 6 Hours Per Day (ICD-10-PCS; 2020-09-04)
PROC: 02HV33Z Insertion of Infusion Device into Superior Vena Cava, Percutaneous Approach (ICD-10-PCS; 2020-09-04)
PROC: B548ZZA Ultrasonography of Superior Vena Cava, Guidance (ICD-10-PCS; 2020-09-04)
DX: U07.1 COVID-19 (principal); J96.01 Acute respiratory failure with hypoxia; J12.89 Other viral pneumonia; Z68.41 Body mass index [BMI] 40.0-44.9, adult; N17.9 Acute kidney failure, unspecified; E11.9 Type 2 diabetes mellitus without complications; E66.01 Morbid (severe) obesity due to excess calories; I10 Essential (primary) hypertension; G47.33 Obstructive sleep apnea (adult) (pediatric); E78.5 Hyperlipidemia, unspecified; I25.10 Atherosclerotic heart disease of native coronary artery without angina pectoris; K76.0 Fatty (change of) liver, not elsewhere classified; Z79.4 Long term (current) use of insulin; Z88.8 Allergy status to other drugs, medicaments and biological substances
CPT/HCPCS: 36415; 36556; 36600; 71045; 76770; 76937; 80048; 80053; 80069; 81001; 82550; 82805; 82962; 83615; 83735; 84100; 84300; 84484; 84550; 85007; 85025; 85520; 86317; 87086; 87340; 94002; 94003; 94660; 94760; C1892; C9113; J0171; J0330; J0696; J1100; J1644; J1650; J1815; J1940; J2250; J2270; J2704; J3010; J3411; J3475; J3480; J3490; J7030; J7060; P9046; G0378